=== PATIENT | male | born 1935 ===

== ENCOUNTER 2019-07-24 18:45 | Inpatient (IN) | payer OTHER, MEDICARE, SELFPAY ==
[2019-07-24] VITALS (8 sets, daily range): BP systolic 133–178; BP diastolic 84–118; PULSE 91–105; RESP 16–105; TEMP 36.4–36.6; O2SAT 93–99; BMI 31.4
--- NOTE | 2019-07-24 18:51 | XRR_ITS ---
PROCEDURE INFORMATION: Exam: XR Chest, 1 View Exam date and time: 07/24/2019 7:22 PM Age: 84 years old Clinical indication: Chest pain; Type not specified; Additional info: Chest pain, started today TECHNIQUE: Imaging protocol: XR of the chest Views: 1 view. COMPARISON: No relevant prior studies available. FINDINGS: Lungs: Hyperinflation and interstitial prominence. Asymmetric right basilar airspace disease and pleural effusion obscuring the right hemidiaphragm. Pleural space: Questionable small left pleural effusion. Heart/Mediastinum: Borderline cardiomegaly. Vasculature: Calcification of the thoracic aorta. Bones/joints: Osteopenia and degenerative change. XR/XR chest 1V portable [id number] IMPRESSION: Asymmetric right basilar airspace disease and pleural effusion obscuring the right hemidiaphragm.
--- NOTE | 2019-07-24 18:52 | ECG_ITS ---
Measurements Intervals [place] Rate: 89 P: ID: 0 QRS: 268 QRSD: 161 T: 27 QT: 418 QTc: 510 ATRIAL FIBRILLATION WITH ABERRANT CONDUCTION OR VENTRICULAR PREMATURE COMPLEXES INDETERMINATE AXIS RIGHT BUNDLE BRANCH BLOCK [120+ ms QRS DURATION, UPRIGHT V1, 40+ ms S IN I/a I/aVL/V4/V5/V6] LEFT POSTERIOR FASCICULAR BLOCK [QRS AXIS > 109, INFERIOR Q] No previous ECG available for comparison Electronically Signed On 07-25-2019 18:52:57 CDT by Tai Tello M.D. [email or web address]
[2019-07-24 19:31] LABS: Basophils % 0.3 %; Eosinophils % 0.4 %; Hematocrit 45.9 % (42.0-52.0); Hemoglobin 14.8 g/dL (11.7-16.6); Lymphocytes # 0.8 10^3/uL (0.8-4.8); Lymphocytes % 8.4 %; Mean Corpuscular HGB Conc 32.2 g/dL (30.0-36.0); Mean Corpuscular Volume 96.2 fL (80-94); Mean Platelet Volume 10.5 fL (7.4-10.4); Monocytes # 0.7 10^3/uL (0.2-0.9); Monocytes % 7.5 %; Neutrophils # 8.1 10^3/uL (1.8-7.7); Neutrophils % 83.1 %; Nucleated Red Blood Cells % 0 %; Platelet Count 181 10^3/cmm (130-400); Red Blood Count 4.77 10^6/uL (4.1-5.3); Red Cell Distribution Width 14.6 % (12.1-15.1); White Blood Count 9.7 10^3/uL (4.0-10.0)
[2019-07-24 19:46] LABS: INR 1.05 (0.8-1.2)
[2019-07-24 19:50] LABS: D Dimer 1.73 ug/mIFEU (0-0.59)
[2019-07-24 19:53] LABS: Alanine Aminotransferase 8 U/L (0-41); Albumin Level 4.1 g/dL (3.5-5.2); Alkaline Phosphatase 94 IU/L (40-130); Anion Gap 16.9 (5-19); Aspartate Amino Transferase 14 U/L (0-40); Blood Urea Nitrogen 16 mg/dL (8-23); Calcium 8.9 mg/dL (8.5-10.5); Carbon Dioxide 25 mmol/L (22-29); Chloride 101 mmol/L (98-107); Creatinine Clr Calc Pharmacy 83.6142; Globulin 2.5 g/dL (1.3-4.6); Glucose 129 mg/dL (65-115); Lipase 62 U/L (13-60); Osmolality Calculated 284 mOsm/kg (285-295); Potassium 4.9 mmol/L (3.5-5.1); Sodium 138 mmol/L (136-145); Total Bilirubin 0.6 mg/dL (0.15-1.2); Total Protein 6.6 g/dL (6.6-8.7)
[2019-07-24 19:54] LABS: Troponin(5th) Baseline 13 ng/mL (0-15)
--- NOTE | 2019-07-24 20:21 | CTR_ITS ---
PROCEDURE INFORMATION: Exam: CT Angiography Chest With Contrast Exam date and time: 07/24/2019 8:49 PM Age: 84 years old Clinical indication: Shortness of breath; Left-sided chest pain; Prior surgery; Surgery type: Stents; Additional info: Syncope, SOB TECHNIQUE: Imaging protocol: Computed tomographic angiography of the chest with intravenous contrast. 3D rendering: MIP and/or 3D reconstructed images were created by the technologist. Radiation optimization: All CT scans at this facility use at least one of these dose optimization techniques: automated exposure control; mA and/or kV adjustment per patient size (includes targeted exams where dose is matched to clinical indication); or iterative reconstruction. Contrast material: OMNI 350; Contrast volume: 95 ml; Contrast route: IV; COMPARISON: CR XR chest 1V portable [id number] 07/24/2019 7:12 PM RADIATION DOSE METRICS: Total DLP: 619.48 mGy-cm FINDINGS: Pulmonary arteries: There is dilatation of the root of the pulmonary artery which measures approximately 4.5 cm in diameter suggesting pulmonary hypertension. There is very poor opacification of arterial branches in the right lower lobe. Findings are worrisome for pulmonary embolism involving the right lower lobe. There is also suggestion of filling defects in some right middle lobe branches. These are not optimally visualized due to streak artifact but are considered to be suspicious also for PE in the right middle lobe. Aorta: Unremarkable. No aortic aneurysm. No aortic dissection. Lungs: There is compressive atelectasis of portions of the right lower lobe. There is mild ground-glass haziness of both lungs in some thickening of the interlobular septa suggesting congestive failure and interstitial edema. There is some calcific density in the atelectatic portion of the right lower lobe, possibly some pleural calcification. Pleural space: There is moderate right pleural effusion. Heart: There is cardiomegaly with left atrial and left ventricular enlargement. There is moderate atherosclerotic calcification of the coronary arteries. Lymph nodes: Unremarkable. No enlarged lymph nodes. Bones/joints: Unremarkable. No acute fracture. Soft tissues: Unremarkable. CT/CT angio chest PE protcl [id number] IMPRESSION: 1. Findings are suspicious for pulmonary embolism in the right lower lobe and right middle lobe. 2. Moderate right pleural effusion. 3. Right lower lobe atelectasis 4. Cardiomegaly and congestive failure. 5. Coronary artery disease. 6. Pulmonary hypertension. Radiation Dose CTDIVOL = (mGy): DLP = 619.48 (mGy-cm)
--- NOTE | 2019-07-24 20:23 | W.ED.CHESTPA ---
HPI - Chest Pain General: Chief Complaint: Chest Pain Stated Complaint: N/V/D, L SIDE CHEST PAIN Time Seen by Provider: 07/24/19 18:49 History of Present Illness: HPI narrative: Patient is an 84-year-old gentleman presenting today with chest pain. He reports that he has had nausea vomiting and diarrhea all day today. He had some loose stool yesterday but the symptoms really started today. He was feeling very weak and had a near syncopal episode after getting up off the toilet. It was at that time that he developed severe chest pain. He hit his [employer] alert button and 911 came. His pain had relieved pretty significantly by the time they got there. He does have a history of coronary artery disease as well as CHF. He has been noticing increasing swelling in both legs. He also has a history of atrial fibrillation and is on rivaroxaban. He has been started on Lasix fairly recently. He was initially started on 80 but is now taking 40. He is only taking in the morning although he supposed to take it twice a day. He says it makes him urinate all night if he takes it at night. He has not had any fevers or cough. His great-grandchildren were around yesterday. He has not had any contact with anyone ill that he is aware of. MD complaint: chest pain Pertinent past history: coronary artery disease and prior MS Onset: other (After getting up off the toilet) Pain location: substernal Pain radiation: left arm Severity: severe Quality: sharp and similar to prior MS Relieving factors: rest Context: recent illness (Vomiting and diarrhea) Associated symptoms: Reports dyspnea, nausea, syncope (Near syncope) and vomiting; Deny abdominal pain or fever(s) Review of Systems General: Reports: 10 or more systems reviewed and unremarkable except in HPI and below Const: Denies: fever(s), chills, fatigue or malaise Eyes: Denies: change in vision ENMT: Denies: odynophagia Card: Reports: chest pain, swelling of feet/ankles and syncope (Near syncope) Resp: Reports: dyspnea GI: Reports: nausea, vomiting and diarrhea; Denies: abdominal pain : Denies: flank pain Musc: Reports: back pain; Denies: neck pain Skin/Breast: Denies: rash Neuro: Reports: weakness in extremities; Denies: headache(s) or numbness in extremities Wyatt/Lymph: Denies: easy bruising or easy bleeding FORMERLY [facility], 1928–1983 ED PFSH: Medical History (Updated 07/24/19 @ 22:40 by Tai Will MD) Atherosclerosis of [place] arteries of extremity with intermittent claudication Nonobstructive coronary artery disease Atrial fibrillation BPH (benign prostatic hyperplasia) CHF (congestive heart failure) CVA (cerebral vascular accident) 2019 Diabetes mellitus Osteoarthritis Right bundle branch block Surgical History (Updated 07/24/19 @ 22:36 by Tai Will MD) S/P eye surgery S/P knee surgery S/P tonsillectomy and adenoidectomy Family History Mother CHF (congestive heart failure) Pneumonia Father CHF (congestive heart failure) Stroke Other Diabetes Hypertension Social History Smoking and tobacco status: former smoker History of recent travel: No Physical Exam Const: COMMON NORMALS: no acute distress, patient oriented x3, no limitations and alert GENERAL APPEARANCE: cooperative and comfortable HENMT: HEAD & SCALP: normal to inspection FACE & SINUS: normal facial exam Eye: GENERAL EYE: appearance normal, both eyes and all related structures Neck/C-Spine: COMMON NORMALS: supple, no meningeal signs and no JVD Chest: COMMONS NORMALS: normal inspection of the chest Resp: COMMON NORMALS: normal respiratory effort and No use of accessory muscles AUSCULTATION: diminished lung sounds (Bilateral bases) Cardio: COMMON NORMALS: no JVD, regular rate, regular rhythm and No murmurs present (Cardio) RATE: regular rate RHYTHM: regular rhythm GI: COMMON NORMALS: Normal to inspection, nondistended, normoactive bowel sounds present, Soft to palpation (Patient states that he feels bloated) and non-tender INSPECTION: Yes normal to inspection AUSCULTATION: Yes normoactive bowel sounds PALPATION: Yes Soft to palpation (Patient states that he feels bloated) Back/Pelvis: COMMON NORMALS: thoracic and lumbar spine normal to inspection Extremity: GENERAL: Yes edema (Bilateral significant edema, pitting) Neuro: COMMON NORMALS: patient oriented x3, moves all extremities, no focal motor deficits and no sensory deficits noted SENSORIUM/ORIENTATION: Yes alert MENINGEAL SIGNS: Yes no meningeal signs Psych: COMMON NORMALS: mental status grossly normal, cooperative and normal affect Skin: COMMON NORMALS: no rashes or lesions noted and turgor normal GENERAL SKIN EXAM: no rashes or lesions noted and turgor normal Course ED course: Patient presented after a day of vomiting and diarrhea. He had a near syncopal episode at home associated with chest pain. In the ED he was somewhat dyspneic at rest but oxygen was okay as long as he was on oxygen. When he stood up to use the urinal even with the oxygen he became extremely dyspneic and hypoxic. Chest x-ray shows a right pleural effusion. CT was done and confirmed the pleural effusion and also suggested probable PEs in the right lower and right middle lobes. He will be admitted. He is already on rivaroxaban and I am giving him some Lovenox as well. He also has some element of failure and will give him some extra Lasix. Vital Signs: Vital signs: Vital Signs Temperature 97.5 F L 07/24/19 18:49 Pulse Rate 101 H 07/24/19 22:00 Respiratory Rate 19 H 07/24/19 22:00 Blood Pressure 133/84 07/24/19 22:00 Pulse Oximetry 95 07/24/19 22:00 MDM - Chest Pain Lab Data: Labs: Lab Results 07/24/19 07/24/19 07/24/19 Range/Units 19:23 19:23 19:23 WBC 9.7 (4.0-10.0) 10^3/ uL RBC 4.77 (4.1-5.3) 10^6/u L Hgb 14.8 (11.7-16.6) g/dL Hct 45.9 (42.0-52.0) % MCV 96.2 H (80-94) fL MCH 31.0 (28.0-34.0) pg MCHC 32.2 (30.0-36.0) g/dL RDW 14.6 (12.1-15.1) % Plt Count 181 (130-400) 10^3/c mm MPV 10.5 H (7.4-10.4) fL Neut % (Auto) 83.1 % Lymph % (Auto) 8.4 % Nicholas % (Auto) 7.5 % Eos % (Auto) 0.4 % Baso % (Auto) 0.3 % Neut # (Auto) 8.1 H (1.8-7.7) 10^3/u L Lymph # (Auto) 0.8 (0.8-4.8) 10^3/u L Nicholas # (Auto) 0.7 (0.2-0.9) 10^3/u L Eos # (Auto) 0.0 (0.0-0.8) 10^3/u L Baso # (Auto) 0.0 (0.0-0.1) 10^3/u L Nucleated RBC % (a uto) 0 % Nucleated RBCs # 0.0 /100WBC PT 14.00 H (10.5-13.3) SECO NDS INR 1.05 (0.8-1.2) D-Dimer 1.73 H (0-0.59) ug/mIFE U Sodium 138 (136-145) mmol/L Potassium 4.9 (3.5-5.1) mmol/L Chloride 101 (98-107) mmol/L Carbon Dioxide 25 (22-29) mmol/L Anion Gap 16.9 (5-19) BUN 16 (8-23) mg/dL Creatinine 0.8 (0.7-1.2) mg/dL Glucose 129 H (65-115) mg/dL Calculated Osmolal ity 284 L (285-295) mOsm/k g Calcium 8.9 (8.5-10.5) mg/dL Total Bilirubin 0.6 (0.15-1.2) mg/dL AST 14 (0-40) U/L ALT 8 (0-41) U/L Alkaline Phosphata se 94 (40-130) IU/L Troponin T Baselin e (0-15) ng/mL Troponin T 120 Min [place] (0-15) ng/mL Delta Troponin T (0-10) ABS# Total Protein 6.6 (6.6-8.7) g/dL Albumin 4.1 (3.5-5.2) g/dL Globulin 2.5 (1.3-4.6) g/dL Lipase 62 H (13-60) U/L Urine Color (Yellow) Urine Appearance (CLEAR) Urine pH (5-7) Ur Specific Gravit y (1.005-1.030) Urine Protein (Negative) Urine Glucose (UA) (Normal) Urine Ketones (Negative) Urine Blood (Negative) Urine Nitrate (Negative) Urine Bilirubin (NEGATIVE) Prot Sulfosalicyli c Acd (Negative) Urine Urobilinogen (Negative) mg/dL Ur Leukocyte Geetha ase (Negative) 07/24/19 07/24/19 07/24/19 Range/Units 19:23 20:35 21:05 WBC (4.0-10.0) 10^3/ uL RBC (4.1-5.3) 10^6/u L Hgb (11.7-16.6) g/dL Hct (42.0-52.0) % MCV (80-94) fL MCH (28.0-34.0) pg MCHC (30.0-36.0) g/dL RDW (12.1-15.1) % Plt Count (130-400) 10^3/c mm MPV (7.4-10.4) fL Neut % (Auto) % Lymph % (Auto) % Nicholas % (Auto) % Eos % (Auto) % Baso % (Auto) % Neut # (Auto) (1.8-7.7) 10^3/u L Lymph # (Auto) (0.8-4.8) 10^3/u L Nicholas # (Auto) (0.2-0.9) 10^3/u L Eos # (Auto) (0.0-0.8) 10^3/u L Baso # (Auto) (0.0-0.1) 10^3/u L Nucleated RBC % (a uto) % Nucleated RBCs # /100WBC PT (10.5-13.3) SECO NDS INR (0.8-1.2) D-Dimer (0-0.59) ug/mIFE U Sodium (136-145) mmol/L Potassium (3.5-5.1) mmol/L Chloride (98-107) mmol/L Carbon Dioxide (22-29) mmol/L Anion Gap (5-19) BUN (8-23) mg/dL Creatinine (0.7-1.2) mg/dL Glucose (65-115) mg/dL Calculated Osmolal ity (285-295) mOsm/k g Calcium (8.5-10.5) mg/dL Total Bilirubin (0.15-1.2) mg/dL AST (0-40) U/L ALT (0-41) U/L Alkaline Phosphata se (40-130) IU/L Troponin T Baselin e 13 (0-15) ng/mL Troponin T 120 Min [place] 13.21 (0-15) ng/mL Delta Troponin T 0.21 (0-10) ABS# Total Protein (6.6-8.7) g/dL Albumin (3.5-5.2) g/dL Globulin (1.3-4.6) g/dL Lipase (13-60) U/L Urine Color Yellow (Yellow) Urine Appearance Clear (CLEAR) Urine pH 8 H (5-7) Ur Specific Gravit y 1.005 (1.005-1.030) Urine Protein Neg (Negative) Urine Glucose (UA) Norm (Normal) Urine Ketones 1+ H (Negative) Urine Blood Neg (Negative) Urine Nitrate Negative (Negative) Urine Bilirubin Neg (NEGATIVE) Prot Sulfosalicyli c Acd Negative (Negative) Urine Urobilinogen Norm (Negative) mg/dL Ur Leukocyte Geetha ase Negative (Negative) EKG Data^: EKG 1: EKG interpretation date: 07/24/19 EKG interpretation time: 19:10 Interpretation: EKG shows a rate of 89 with atrial fibrillation. He has wide a variant conduction. Right bundle branch block. QRS duration is 161. No acute ST changes. Discharge Plan Discharge Admit Provider: Tai Will Coding Level of Care Code ED Ux Developer for [facility] Fwd Exam Comprehensive
[2019-07-24 20:48] LABS: Add Urine Microscopic? NO
--- NOTE | 2019-07-24 20:52 | ECG_ITS ---
Measurements Intervals [place] Rate: 97 P: FL: 0 QRS: 263 QRSD: 166 T: 28 QT: 413 QTc: 525 ATRIAL FIBRILLATION INDETERMINATE AXIS RIGHT BUNDLE BRANCH BLOCK [120+ ms QRS DURATION, UPRIGHT V1, 40+ ms S IN I/aVL/V4/V5/V6] No previous ECG available for comparison Electronically Signed On 07-25-2019 19:01:08 CDT by Tai Tello M.D. [id number]
[2019-07-24 21:07] LABS: Urine Appearance Clear (CLEAR); Urine Color Yellow (Yellow)
[2019-07-24] MEDS: iohexol 350 mg/mL 100 mL Btl IV (21:07)
[2019-07-24 21:08] LABS: Bilirubin Urine Neg (NEGATIVE); Blood Urine Neg (Negative); Glucose Urine UA Norm (Normal); Ketones Urine 1+ (Negative); Leukocyte Esterase Urine Negative (Negative); Nitrate Urine Negative (Negative); Protein Urine Neg (Negative); Specific Gravity, Urine 1.005 (1.005-1.030); Sulfosalicylic Acid Urine Negative (Negative); Urobilinogen Urine Norm (Negative); pH Urine 8 (5-7)
[2019-07-24 21:42] LABS: Troponin 5 2HR 13.21 ng/mL (0-15); Troponin 5 2HR Delta 0.21 ABS# (0-10)
--- NOTE | 2019-07-24 22:31 | P.HP_ITS ---
Providers/Chief Complaint Primary Care Provider: WILFREDO Brandt Chief Complaint: N/V/D, L SIDE CHEST PAIN History of Present Illness Rober Smiley is a 84 year old male who has a known history of atrial fibrillation, chronic anticoagulation with rivaroxaban, congestive heart failure of unknown type, CVA coming in today after experiencing sharp chest pain. Patient is stating that around 6 PM he started experiencing left-sided chest pain which was radiating towards his arm and left shoulder, he felt nauseous with some dry heaves, chest pain lasted for about few minutes, for last couple of weeks he has been having orthopnea, PND, he has gained few pounds, his legs are swollen, he takes Lasix 40 mg a day. He is moderately active for his age, is still working 30 hours a day, he is an tax staff accountant by profession. Today he also experienced couple of episodes of diarrhea which is unusual for him, he has not used any antibiotics recently, no sick contacts, he is denying any fever. Diagnostics in the ER revealed pulmonary embolism, tachypnea, tachycardia, hypoxia requiring 2 L of oxygen, CTA revealed PE He was given first dose of Lovenox in the ER 100 mg Review of Systems Const: Reports: body aches and fatigue; Denies: fever(s) or chills Eyes: Denies: change in vision ENMT: Denies: throat pain Card: Reports: chest pain, edema, swelling of feet/ankles, pre-syncope, dyspnea on exertion and orthopnea; Denies: palpitations, irregular heart rhythm, lightheadedness or syncope Resp: Reports: dyspnea GI: Reports: nausea and diarrhea; Denies: abdominal pain, vomiting or constipation : Denies: flank pain Musc: Denies: neck pain Skin/Breast: Denies: rash Neuro: Denies: headache(s) or weakness in extremities Psych: Denies: anxiety Endo: Denies: polyuria Wyatt/Lymph: Denies: easy bruising All/Imm: Denies: urticaria Medications/Allergies Home Medications Medication Instructions Recorded Confirmed Last Taken Type aspirin 81 mg tablet,delayed 81 mg PO DAILY 05/05/19 05/05/19 Unknown History release atorvastatin 80 mg tablet 40 mg PO DAILY tab 05/05/19 05/05/19 Unknown History docusate sodium 100 mg capsule 100 mg PO BID PRN 05/05/19 05/05/19 Unknown History multivitamin 1 tab PO DAILY 05/05/19 05/05/19 Unknown History potassium chloride 20 mEq/15 mL 20 meq PO DAILY 05/05/19 05/05/19 Unknown History oral liquid trazodone 100 mg tablet 100 mg PO DAILY 05/05/19 05/05/19 Unknown History furosemide 80 mg tablet 80 mg PO .1 tab AM, 1/2 tab PM tab 05/23/19 Unknown History Allergies Allergy/AdvReac Type Severity Reaction Status Date / Time digoxin Allergy Unknown ALGY-Rash Verified 07/24/19 23:22 PFSH Acute PFSH: Medical History Atherosclerosis of [place] arteries of extremity with intermittent claudication Nonobstructive coronary artery disease Atrial fibrillation BPH (benign prostatic hyperplasia) CHF (congestive heart failure) CVA (cerebral vascular accident) 2019 Diabetes mellitus Osteoarthritis Right bundle branch block Surgical History S/P eye surgery S/P knee surgery S/P tonsillectomy and adenoidectomy Family History Mother CHF (congestive heart failure) Pneumonia Father CHF (congestive heart failure) Stroke Other Diabetes Hypertension Social History (Updated 07/24/19 @ 23:23 by Tai Will MD) Smoking and tobacco status: former smoker Alcohol intake: never Substance/Drug Use: never Lives independently: Yes Current occupation: Works 30 hours a day as an tax staff accountant, [employer] History of recent travel: No Vitals/I&O/Wt Last Vital Signs Temp 97.5 F L 07/24/19 18:49 Pulse 101 H 07/24/19 22:00 Resp 19 H 07/24/19 22:00 BP 133/84 07/24/19 22:00 Pulse Ox 95 07/24/19 22:00 Weight last 48 hrs Weight 102.058 kg Physical Exam Narrative: EXAM NARRATIVE: Head to toe examination Very pleasant elderly male Morbidly obese No active chest pain Variable S1-S2, active signs of heart failure, 2+ pitting edema bilateral lower extremities Abdomen distended, bloated, nontender, no signs of peritonitis, bowel sounds sluggish Lungs are clear to auscultation Neurologically nonfocal exam Awake alert oriented x3, GCS 15 Skin does not show any sign ischemia gangrene ulcer Appropriate mood and affect Pertinent negatives: No respiratory distress Data : 07/24/19 19:23 07/24/19 19:23 A&P Assessment and plan (1) Acute pulmonary embolism: Status: Acute (2) CHF exacerbation: Status: Acute (3) Chest pain: Status: Acute (4) Atrial fibrillation: Status: Acute (5) Morbid obesity: Status: Acute Additional A&P Information Symptomatic new onset PE with chest pain and shortness of Failed rivaroxaban EKG shows right bundle branch block which is chronic Troponin not significantly high, I have ordered echo, BNP, no active right heart strain on EKG Hemodynamically stable I would use Lovenox for now, 100 mg twice a day Venous Dopplers in the am He lives alone, never had any falls in the past CHF exacerbation of unknown type We will get echo in the morning He takes Lasix 40 mg I would go ahead and use 80 mg for now Atrial fibrillation with RVR Heart rate 10 5-1 10 At home he was not on AV peña blocking agent, his rate was controlled because of right bundle branch block in the past I would use very low-dose beta-genia for now, would avoid calcium genia as I am not aware of his EF Failed anticoagulation BMI less than 40, he might benefit from Eliquis instead of rivaroxaban Full code No need of DVT prophylaxis because of Lovenox use Cardiac diet Attestations Medical Necessity Statement*: Anticipating discharge in less than 48 hours currently needs anticoagulation with Lovenox for new onset PE which is symptomatic, needs echo in the morning Time Spent in Patient Care: 50 Coding Level of Care Code Acute [place] Planter for [facility] Fwd Diagnoses Acute pulmonary embolism I26.99 CHF exacerbation I50.9 Chest pain R07.9 Atrial fibrillation I48.91 Morbid obesity E66.01
[2019-07-24] MEDS: enoxaparin 100 mg/mL Syringe SUBCUT (22:49)
[2019-07-24 23:35] LABS: NT Pro B Type Natriuretic Pept 1285 pg/mL (0-450)
--- NOTE | 2019-07-24 23:47 | PC.NURSE ---
Dr. Will notified of patient's heart rate jumping up to 160 when patient gets up to stand at side of bed.
--- NOTE | 2019-07-24 23:50 | PC.NURSE ---
Patient's med rec is complete per what patient states he takes, except for a medication that he states he takes for restless legs that he cannot remember the name of.
[2019-07-24] MEDS: metoprolol tartrate 25 mg Tablet PO (23:52)
[2019-07-25] VITALS (7 sets, daily range): BP systolic 143–166; BP diastolic 70–90; PULSE 47–89; RESP 18–38; TEMP 36.6–36.8; O2SAT 92–98
--- NOTE | 2019-07-25 00:14 | PC.NURSE ---
Patient arrived to the floor from ED around 2330 after report was received via phone. Patient is alert and oriented and is ambulatory, but weak when ambulating. Dr. Will came to see patient. Patient has been oriented to his room and has call light within reach.
--- NOTE | 2019-07-25 00:52 | ECG_ITS ---
Measurements Intervals [place] Rate: 79 P: ID: 0 QRS: 254 QRSD: 161 T: 43 QT: 449 QTc: 517 ATRIAL FIBRILLATION WITH ABERRANT CONDUCTION OR VENTRICULAR PREMATURE COMPLEXES INDETERMINATE AXIS RIGHT BUNDLE BRANCH BLOCK [120+ ms QRS DURATION, UPRIGHT V1, 40+ ms S IN I/aVL/V4/V5/V6] No previous ECG available for comparison Electronically Signed On 07-25-2019 19:01:15 CDT by Tai Tello M.D. [email or web address]
[2019-07-25 01:09] LABS: Troponin 5 6HR 13.31 ng/mL (0-15); Troponin 5 6HR Delta 0.31 ng/L (0-12)
--- NOTE | 2019-07-25 02:11 | PC.NURSE ---
Patient vomited. Got order from Dr. Colbert for [place] [facility] REAL.
[2019-07-25] MEDS: ondansetron 4 MG Tablet PO (02:13)
--- NOTE | 2019-07-25 05:06 | PC.NURSE ---
Dr. Suman thao of patient asking for something to help with diarrhea.
[2019-07-25 05:45] LABS: Basophils % 0.2 %; Eosinophils % 0.1 %; Hematocrit 45.7 % (42.0-52.0); Hemoglobin 15.8 g/dL (11.7-16.6); Lymphocytes # 0.9 10^3/uL (0.8-4.8); Mean Corpuscular HGB Conc 34.6 g/dL (30.0-36.0); Mean Corpuscular Hemoglobin 33.5 pg (28.0-34.0); Mean Platelet Volume 11.1 fL (7.4-10.4); Monocytes # 0.9 10^3/uL (0.2-0.9); Neutrophils # 11.3 10^3/uL (1.8-7.7); Neutrophils % 85.3 %; Nucleated Red Blood Cells % 0 %; Platelet Count 180 10^3/cmm (130-400); Red Blood Count 4.71 10^6/uL (4.1-5.3); Red Cell Distribution Width 14.7 % (12.1-15.1); White Blood Count 13.2 10^3/uL (4.0-10.0)
[2019-07-25 06:07] LABS: Anion Gap 15.3 (5-19); Blood Urea Nitrogen 18 mg/dL (8-23); Calcium 9.6 mg/dL (8.5-10.5); Carbon Dioxide 26 mmol/L (22-29); Chloride 100 mmol/L (98-107); Glucose 135 mg/dL (65-115); Osmolality Calculated 283 mOsm/kg (285-295); Potassium 4.3 mmol/L (3.5-5.1); Sodium 137 mmol/L (136-145)
--- NOTE | 2019-07-25 07:00 | USCV_ITS ---
Rober Smiley Age: 84 Gender: M : 1935 Exam Date: 07/25/2019 08:32 Ordering Phys: Tai Will MD Technologist: Mindi Rodriguez [place] [facility] [place] HISTORY: Pulmonary embolism. PROCEDURES: Venous duplex imaging was performed in bilateral lower extremities. The following venous structures were evaluated: common femoral vein, profunda vein, proximal portion of the greater saphenous vein, superficial femoral vein, and the popliteal vein. In addition, the posterior tibial and peroneal trunk were evaluated. Serial compression, augmentation maneuvers, and spectral Doppler flow evaluation were performed. FINDINGS: Normal 2-D Doppler and augmentation and compressibility throughout the lower extremity venous structures. Additional imaging through the proximal calf veins also reveals no thrombus. Limited evaluation of the greater saphenous vein is patent with no thrombus. There is bilateral subcutaneous lower extremity edema noted. CONCLUSIONS No DVT bilateral lower extremities. Dr. Amparo Wray DO (Electronically Signed) Final Date: 25 Jul 2019 12:45 S
--- NOTE | 2019-07-25 07:00 | USCV_ITS ---
Rober Smiley Age: 84 Gender: M : 1935 Exam Date: 07/25/2019 08:16 Ordering Phys: Tai Will MD Technologist: Mindi Rodriguez [place] [facility] [place] PE BP: 166 / 89 HR: 74 Rhythm: Sinus Technical Quality: Suboptimal MEASUREMENTS (Male / Female) Normal Values 2D ECHO LV Diastolic Diameter PLAX 5.9 cm 4.2 - 5.9 / 3.9 - 5.3 cm LV Systolic Diameter PLAX 5.6 cm LV Chamber Size 4.3 cm IVS Diastolic Thickness 1.2 cm 0.6 - 1.0 / 0.6 - 0.9 cm IVS Systolic Thickness 1.3 cm LVPW Diastolic Thickness 1.8 cm 0.6 - 1.0 / 0.6 - 0.9 cm LVPW Systolic Thickness 1.7 cm RV Chamber Size 3.6 cm LVOT Diameter 2.1 cm LV Ejection Fraction 2D Teich 11.2 % LV Ejection Fraction MOD 2C 24.0 % LV Ejection Fraction 2C AL 22.0 % LA Diameter 4.6 cm LA Width 3.2 cm LA Height 3.4 cm RA Width 2.8 cm RA Height 4.1 cm Aorta at Sinotubular Diameter 2.8 cm M-MODE LV Diastolic Diameter MM 6.5 cm 4.2 - 5.9 / 3.9 - 5.3 cm LV Systolic Diameter MM 5.2 cm LV Ejection Fraction MM Teich 40.8 % IVS Diastolic Thickness MM 1.1 cm 0.6 - 1.0 / 0.6 - 0.9 cm IVS Systolic Thickness MM 1.3 cm LVPW Diastolic Thickness MM 0.9 cm 0.6 - 1.0 / 0.6 - 0.9 cm LVPW Systolic Thickness MM 0.9 cm Aortic Annulus Diameter 3.1 cm LA Ao Ratio MM 1.5 MV E Point Septal Separation 1.8 cm DOPPLER AV Peak Velocity 157.0 cm/s LVOT Peak Velocity 76.0 cm/s AV Area Cont Eq vti 2.1 cm squared AV Area Cont Eq pk 1.6 cm squared MV Area PHT 3.9 cm squared Mitral E to A Ratio 5.7 MV E' Velocity 10.0 cm/s Mitral E to MV E' Ratio 12.6 Mitral E to LV E' Lateral Ratio 11.6 Mitral E to LV E' Septal Ratio 13.7 TR Peak Velocity 335.6 cm/s TR Peak Gradient 45.1 mmHg TR Mean Velocity 225.3 cm/s TR Mean Gradient 24.3 mmHg TR Velocity Time Integral 109.8 cm TV Peak E Velocity 55.0 cm/s Right Atrial Pressure 3.0 mmHg Pulmonary Artery Systolic Pressu 48.1 mmHg PV Peak Velocity 71.0 cm/s QpQs Shunt Ratio 1.1 RV Acceleration Time 0.1 s RV Ejection Time 0.3 s RV AcT/ET 0.3 FINDINGS Left Ventricle The rhythm is sinus with frequent PVCs. The ventricle is mildly to moderately enlarged. There is severe global hypokinesis. A rough estimate of the ejection fraction is about 25 to 30%. Grade 3 diastolic dysfunction. Right Ventricle Mild right ventricular free wall enlargement. Mild right ventricular free wall hypokinesis.mild pulmonary hypertension, RVSP 48.1 mmHg. Right Atrium Moderately increased right atrial size. Left Atrium Mildly increased left atrial size. Mitral Valve Structurally normal mitral valve. Mild mitral valve regurgitation. Aortic Valve Structurally normal trileaflet aortic valve. No aortic valve stenosis. Mild aortic valve regurgitation. Tricuspid Valve Structurally normal tricuspid valve. Mild tricuspid valve regurgitation. Pulmonic Valve Pulmonic valve not well visualized. Pericardium Normal pericardium without effusion. Aorta Normal ascending aorta dimension. CONCLUSIONS The rhythm is sinus with frequent PVCs. The ventricle is mildly to moderately enlarged. There is severe global hypokinesis. A rough estimate of the ejection fraction is about 25 to 30%. Grade 3 diastolic dysfunction. Mild right ventricular free wall enlargement. Mild right ventricular free wall hypokinesis.mild pulmonary hypertension, RVSP 48.1 mmHg. Moderately increased right atrial size. Mildly increased left atrial size. Structurally normal mitral valve. Mild mitral valve regurgitation. Structurally normal trileaflet aortic valve. No aortic valve stenosis. Mild aortic valve regurgitation. There are no prior echocardiogram studies to compare. Dr. Kings Piper MD (Electronically Signed) Final Date: 25 Jul 2019 09:00 S
[2019-07-25] MEDS: FUROsemide 40 mg Tablet 80 MG PO (09:27)
[2019-07-25] MEDS: aspirin 81 mg EC Tablet PO (09:27)
[2019-07-25] MEDS: metoprolol tartrate 25 mg Tablet PO (09:27)
[2019-07-25] MEDS: atorvastatin 40 mg Tablet PO (09:27)
--- NOTE | 2019-07-25 10:15 | PC.CHAP ---
Pastoral Care Encounter/Spiritual Assessment Type of Contact [] Declined research and development tester visit [] Patient/Family/Request visit [] Outpatient visit [] Follow-up visit [] Physician referral [] Code/Alert [x] Routine visit [] Staff referral [] Actively dying [] Patient sleeping [] Family support [] [] Out of room [] Palliative care [] [] Receiving care in room [] Pre-surgical visit [] Trauma [] Long length of stay [] ICU visit [] Other: Relational/Emotional Strength [] Patient feels connected with others/family/visitors/staff [] Distress [] Loneliness/isolation [] Abandonment Spirituality of Patient [] Person of Dai [] Attends Sikh of their Dai [] Believes in Prayer [] Reads Bible or Episcopal materials [] There are Spiritual issues to be addressed Manager Solution Interventions [x] Prayer [] Active listening [] Non-anxious presence [] Spiritual/emotional support [] Crisis/trauma care [] Spiritual counseling [] Bereavement support [] Provided bereavement packet [] Provided Bible/devotional materials [] Provided toy/stuffed animal, coloring book to patient or family member [] Provided Communion [] Anointing/[place] [] Salvation [x] Completed spiritual assessment [] Other: Impact on Illness or Injury [] Angry [] Fearful [] Anxious [] Often cries [] Exhaustion [] Unable to work [] Unable to attend tenriism [] Unable to walk/stand [] Unable to read [] Unable to drive [] Unable to eat/drink [] Unable to sleep [] Unable to be with family [] Patient intubated [] Other: Summary resting Time spent with patient
[2019-07-25 10:55] LABS: Estmated Average Glucose 137; Hemoglobin A1C 6.4 % (4.0-6.0)
[2019-07-25 11:07] LABS: Thyroid Stimulating Hormone 2.31 uIU/mL (0.27-4.20)
[2019-07-25] MEDS: enoxaparin 100 mg/mL Syringe SUBCUT ×2 (11:28→21:20)
--- NOTE | 2019-07-25 11:29 | PC.NURSE ---
Patient states he cannot swallow potassium pills, and can only take take liquid potassium.
[2019-07-25] MEDS: acetaminophen 325 mg Tablet PO (11:45)
--- NOTE | 2019-07-25 11:46 | P.PN_ITS ---
Subjective Subjective: Interval history: This morning patient was examined, is sitting in bed, denies chest pain, palpitations, lightheadedness, no dizziness Patient states that back in October 2018, he presented to [facility] due to severe left-sided chest pain, there were plans on flying him to [facility], while at [facility] he suffered left-sided weakness, also had a right MCA stroke, was then emergently flown for an NM and a stroke to [facility]. Patient states at [facility] he was diagnosed with a mild NM, did not have a stress test, did not have angiography, medically managed. He had left-sided weakness, for which she was diagnosed from with a stroke secondary to atrial fibrillation, put on rivaroxaban, aspirin received physical therapy. Currently at home, living by himself. Patient states that he had a stress test in at the [facility] in [place] a few months ago, is not sure of the results. He remembers that he did have a coronary angiogram done many years ago showed 30% blockage somewhere. Patient states that last night he thought he had a heart attack, as he developed severe left-sided chest pain rating to his left arm, associate with shortness of breath lasting 30 minutes, no nausea, no vomiting, no lightheaded, dizziness. Denies calf pain, calf swelling, immobility, recent surgery, recent travel, work-up here in the ER did show a right middle and lower lobe pulmonary embolism. Patient echocardiogram does show a reduced ejection fraction down to 25 to 30%, which seems to be new, does report orthopnea, paroxysmal nocturnal dy spnea, shortness of breath less than 10 feet recently, and chest pain with exertion. Vitals/I&O/Wt Last Vital Signs Temp 98.2 F 07/25/19 05:20 Pulse 73 07/25/19 05:20 Resp 38 H 07/25/19 05:20 BP 166/89 07/25/19 05:20 Pulse Ox 98 07/25/19 05:20 07/24/19 07/25/19 07/25/19 22:59 06:59 14:59 Intake Total 300 / 300 360 / 360 Output Total 100 / 100 Balance 200 / 200 360 / 360 Weight last 48 hrs Weight 116.936 kg Weight 102.058 kg Physical Exam Const: COMMON NORMALS: no acute distress and patient oriented x3 HENMT: COMMON NORMALS: normocephalic HEAD & SCALP: normocephalic Neck/C-Spine: COMMON NORMALS: no JVD Resp: COMMON NORMALS: normal respiratory effort, No retractions, No use of accessory muscles and clear to auscultation bilaterally AUSCULTATION: clear to auscultation bilaterally Cardio: COMMON NORMALS: no JVD, regular rate, regular rhythm, S1 normal heart sound present and S2 normal heart sound present RATE: regular rate RHYTHM: regular rhythm HEART SOUNDS: S1 normal heart sound present and S2 normal heart sound present GI: COMMON NORMALS: Normal to inspection, nondistended, normoactive bowel so unds present, Soft to palpation, non-tender, No hepatosplenomegaly present, no masses and no bruits PALPATION: Yes Soft to palpation and Yes No hepatosplenomegaly present Extremity: COMMON NORMALS: capillary refill normal, no clubbing, cyanosis or edema and no calf tenderness NARRATIVE EXTREMITY EXAM: 1+ edema Neuro: COMMON NORMALS: patient oriented x3 Psych: COMMON NORMALS: mental status grossly normal Data : 07/25/19 04:55 07/25/19 04:55 A&P Assessment and plan (1) Acute and chronic respiratory failure with hypoxia: -Multifactorial secondary to right middle and right lower lobe pulmonary embolism, and systolic heart failure, cardiomyopathy, pulmonary edema, left pleural effusion -Has complaints of left-sided chest pain, shortness of breath, orthopnea, paroxysmal nocturnal dyspnea, shortness of breath with exertion, by lower extremity edema -Patient has failed anticoagulation on rivaroxaban that he takes for atrial fibrillation, as his PE has occurred on this medication, I spoke to Dr. Soto who advised to switch to a anticoagulation with a different mechanism of action, such as Pradaxa or Coumadin, but needs anticoagulation for Lovenox for now -CT angiogram shows pulmonary embolism in the right lower lobe and right middle lobe, mild right ventricular free wall enlargement, mild right ventricular free wall hypokinesis t -Patient's EKG shows right bundle branch block, atrial fibrillation, no acute ST-T wave changes, echocardiogram shows severe global hypokinesis, ejection fraction 25 to 30%, grade 3 diastolic dysfunction, mild right ventricular free wall hypokinesis, mild pulmonary hypertension -Also has moderate right pleural effusion, pulmonary edema, cardiomegaly seen on imaging -6-hour troponin 13.3, delta 0.31, BNP 1285 Currently requiring 2 L of oxygen Plan; -Admit to CSU -Oxygen therapy protocol -Aspirin, statin, beta-genia -Continue therapeutic Lovenox, switch to Pradaxa on discharge -Monitor for chest pain, monitor telemetry, monitor EKGs -Await records from [facility] and [facility] -We will consider doing a cardiac stress test on Sunday, depending on test results from [facility], might consider a cardiac catheterization given decreased ejection fraction -Lasix 40 mg IV twice daily, potassium replacement 40 mg daily -Daily weights, fluid restrictions less than 15 or cc, physical therapy Status: Acute (2) Chest pain: Status: Acute (3) Atherosclerosis of [place] arteries of extremity with intermittent claudication: Status: Acute (4) CHF (congestive heart failure): Status: Acute (5) Atrial fibrillation: Status: Acute (6) Acute pulmonary embolism: Status: Acute (7) CVA (cerebral vascular accident): -Right-sided CVA, with residual left-sided weakness -Has had multiple CVAs in the past -Was on aspirin, rivaroxaban Status: Acute Additional A&P Information Full code Lovenox for DVT prophylaxis Attestations Medical Necessity Statement*: Patient requires hospitalization, inpatient, for acute respiratory failure Coding Level of Care Code Acute Bender Hand for [facility] Diagnoses Acute and chronic respiratory failure with hypoxia J96.21 Chest pain R07.9 Atherosclerosis of [place] arteries of extremity with intermittent claudication I70.219 CHF (congestive heart failure) I50.9 Atrial fibrillation I48.91 Acute pulmonary embolism I26.99 CVA (cerebral vascular accident) I63.9
[2019-07-25] MEDS: potassium chloride oral liq 20 mEq/15 mL UDC 40 MEQ PO (12:02)
[2019-07-25] MEDS: lisinopril 5 mg Tablet PO (13:16)
--- NOTE | 2019-07-25 18:17 | PC.NURSE ---
Patient's HR is 58 Metoprolol held.
--- NOTE | 2019-07-25 19:59 | PC.NURSE ---
Dr. Will notified of c-diff coming back negative. Patient is asking for something to help with gas and diarrhea.
[2019-07-25] MEDS: FUROsemide 10 mg/mL SDV 4mL 40 MG IVP (21:20)
[2019-07-25] MEDS: loperamide 2 mg Capsule 4 MG PO (21:21)
[2019-07-25 23:08] LABS: Glucose Point of Care 129 mg/dL (70-110)
[2019-07-26] VITALS (7 sets, daily range): BP systolic 106–135; BP diastolic 56–71; PULSE 65–892; RESP 22–36; TEMP 36.6–36.9; O2SAT 92–99
[2019-07-26 05:32] LABS: Basophils % 0.3 %; Eosinophils # 0.1 10^3/uL (0.0-0.8); Eosinophils % 0.4 %; Hematocrit 42.7 % (42.0-52.0); Hemoglobin 14.8 g/dL (11.7-16.6); Lymphocytes # 1.3 10^3/uL (0.8-4.8); Lymphocytes % 9.4 %; Mean Corpuscular HGB Conc 34.7 g/dL (30.0-36.0); Mean Corpuscular Hemoglobin 34.1 pg (28.0-34.0); Mean Corpuscular Volume 98.4 fL (80-94); Monocytes # 1.8 10^3/uL (0.2-0.9); Monocytes % 12.8 %; Neutrophils # 10.6 10^3/uL (1.8-7.7); Neutrophils % 76.7 %; Nucleated Red Blood Cells % 0 %; Platelet Count 164 10^3/cmm (130-400); Red Blood Count 4.34 10^6/uL (4.1-5.3); Red Cell Distribution Width 15.4 % (12.1-15.1); White Blood Count 13.8 10^3/uL (4.0-10.0)
[2019-07-26] MEDS: FUROsemide 10 mg/mL SDV 4mL 40 MG IVP ×3 (05:37→21:52)
--- NOTE | 2019-07-26 06:04 | PC.NURSE ---
Patient had incontinent episode of a large amount of urine. Brief and linen change provided.
[2019-07-26 06:15] LABS: Alanine Aminotransferase 7 U/L (0-41); Albumin Level 3.8 g/dL (3.5-5.2); Alkaline Phosphatase 88 IU/L (40-130); Anion Gap 15.7 (5-19); Aspartate Amino Transferase 14 U/L (0-40); Blood Urea Nitrogen 17 mg/dL (8-23); Calcium 9.2 mg/dL (8.5-10.5); Carbon Dioxide 30 mmol/L (22-29); Chloride 98 mmol/L (98-107); Globulin 2.7 g/dL (1.3-4.6); Glucose 108 mg/dL (65-115); Magnesium 1.8 mg/dL (1.7-2.3); Osmolality Calculated 287 mOsm/kg (285-295); Phosphorus 3.3 mg/dL (2.5-4.5); Potassium 3.7 mmol/L (3.5-5.1); Sodium 140 mmol/L (136-145); Total Bilirubin 1.2 mg/dL (0.15-1.2); Total Protein 6.5 g/dL (6.6-8.7)
[2019-07-26 06:32] LABS: Glucose Point of Care 114 mg/dL (70-110)
[2019-07-26] MEDS: lisinopril 5 mg Tablet PO (09:34)
[2019-07-26] MEDS: metoprolol tartrate 25 mg Tablet PO ×2 (09:34→17:33)
[2019-07-26] MEDS: potassium chloride oral liq 20 mEq/15 mL UDC 40 MEQ PO (09:34)
[2019-07-26] MEDS: aspirin 81 mg EC Tablet PO (09:34)
[2019-07-26] MEDS: atorvastatin 40 mg Tablet PO (09:34)
--- NOTE | 2019-07-26 11:12 | PC.CHAP ---
Pastoral Care Encounter/Spiritual Assessment Type of Contact [] Declined chain pegger visit [] Patient/Family/Request visit [] Outpatient visit [] Follow-up visit [] Physician referral [] Code/Alert [X] Routine visit [] Staff referral [] Actively dying [] Patient sleeping [] Family support [] [] Out of room [] Palliative care [] [] Receiving care in room [] Pre-surgical visit [] Trauma [] Long length of stay [] ICU visit [] Other: Relational/Emotional Strength [] Patient feels connected with others/family/visitors/staff [] Distress [] Loneliness/isolation [] Abandonment Spirituality of Patient [X] Person of Dai [] Attends Moravian of their Dai [] Believes in Prayer [] Reads Bible or Judaism materials [] There are Spiritual issues to be addressed Customer Support Agent Interventions [] Prayer [] Active listening [] Non-anxious presence [] Spiritual/emotional support [] Crisis/trauma care [] Spiritual counseling [] Bereavement support [] Provided bereavement packet [] Provided Bible/devotional materials [] Provided toy/stuffed animal, coloring book to patient or family member [] Provided Communion [] Anointing/[place] [] Salvation [] Completed spiritual assessment [] Other: Impact on Illness or Injury [] Angry [] Fearful [] Anxious [] Often cries [] Exhaustion [] Unable to work [] Unable to attend cheondoism [] Unable to walk/stand [] Unable to read [] Unable to drive [] Unable to eat/drink [] Unable to sleep [] Unable to be with family [] Patient intubated [] Other: Summary Time spent with patient
[2019-07-26 12:00] LABS: Glucose Point of Care 102 mg/dL (70-110)
--- NOTE | 2019-07-26 12:33 | P.PN_ITS ---
Subjective Subjective: Interval history: This morning patient states that at rest he does not have any chest pain, no shortness of breath, but when he gets up and ambulates he feels short of breath, no lightheadedness, no dizziness, no nausea, no vomiting, overall his exertional symptoms are slow to improve Vitals/I&O/Wt Last Vital Signs Temp 98.0 F 07/26/19 07:42 Pulse 74 07/26/19 09:01 Resp 27 H 07/26/19 07:42 BP 114/62 07/26/19 07:42 Pulse Ox 98 07/26/19 09:01 07/25/19 07/26/19 07/26/19 22:59 06:59 14:59 Intake Total 360 / 1080 100 / 1180 240 / 240 Output Total 700 / 860 1500 / 2360 Balance -340 / 220 -1400 / -1180 240 / 240 Weight last 48 hrs Weight 114.505 kg Weight 116.936 kg Weight 102.058 kg Physical Exam Const: COMMON NORMALS: no acute distress and patient oriented x3 HENMT: COMMON NORMALS: normocephalic HEAD & SCALP: normocephalic Neck/C-Spine: COMMON NORMALS: no JVD Resp: COMMON NORMALS: normal respiratory effort, No retractions, No use of accessory muscles and clear to auscultation bilaterally AUSCULTATION: clear to auscultation bilaterally Cardio: COMMON NORMALS: no JVD, regular rate, regular rhythm, S1 normal heart sound present and S2 normal heart sound present RATE: regular rate RHYTHM: regular rhythm HEART SOUNDS: S1 normal heart sound present and S2 normal heart sound present GI: COMMON NORMALS: Normal to inspection, nondistended, normoactive bowel sounds present, Soft to palpation, non-tender, No hepatosplenomegaly present, no masses and no bruits PALPATION: Yes Soft to palpation and Yes No hepatospl enomegaly present Extremity: COMMON NORMALS: capillary refill normal, no clubbing, cyanosis or edema, no calf tenderness and no pedal edema NARRATIVE EXTREMITY EXAM: 1+ edema Neuro: COMMON NORMALS: patient oriented x3 Psych: COMMON NORMALS: mental status grossly normal Data : 07/26/19 04:28 07/26/19 04:28 Micro: Microbiology 07/25/19 09:40 C.difficile Toxin B Gene (PCR) - Final Stool A&P Assessment and plan (1) Acute and chronic respiratory failure with hypoxia: -Multifactorial secondary to right middle and right lower lobe pulmonary embolism, and systolic heart failure, cardiomyopathy, pulmonary edema, left pleural effusion -Has complaints of left-sided chest pain, shortness of breath, orthopnea, paroxysmal nocturnal dyspnea, shortness of breath with exertion, by lower extremity edema -Patient has failed anticoagulation on rivaroxaban that he takes for atrial fibrillation, as his PE has occurred on this medication, I spoke to Dr. Soto who advised to switch to a anticoagulation with a different mechanism of action, such as Pradaxa or Coumadin, but needs anticoagulation for Lovenox for now -CT angiogram shows pulmonary embolism in the right lower lobe and right middle lobe, mild right ventricular free wall enlargement, mild right ventricular free wall hypokinesis t -Patient's EKG shows right bundle branch block, atrial fibrillation, no acute ST-T wave changes, echocardiogram shows severe global hypokinesis, ejection fraction 25 to 30%, grade 3 diastolic dysfunction, mild right ventricular free wall hypokinesis, mild pulmonary hypertension -Also has moderate right pleural effusion, pulmonary edema, cardiomegaly seen on imaging -6-hour troponin 13.3, delta 0.31, BNP 1285 Currently requiring 2 L of oxygen Plan; -Admit to CSU -Oxygen therapy protocol -Aspirin, statin, beta-genia -Continue therapeutic Lovenox, switch to Pradaxa on discharge -Monitor for chest pain, monitor telemetry, monitor EKGs -Until Sunday, n.p.o. midnight on Sunday night, stress test on Sunday given significant drop in ejection fraction -We will do a cardiac stress test on Sunday -Lasix 40 mg IV twice daily, potassium replacement 40 mg daily -Daily weights, fluid restrictions less than 15 or cc, physical therapy Status: Acute (2) Chest pain: Status: Acute (3) Atherosclerosis of [place] arteries of extremity with intermittent claudication: Status: Acute (4) CHF (congestive heart failure): Status: Acute (5) Atrial fibrillation: Discharged on beta-genia and Pradaxa Status: Acute (6) Acute pulmonary embolism: Status: Acute (7) CVA (cerebral vascular accident): -History of right-sided CVA, with residual left-sided weakness -Has had multiple CVAs in the past -Was on aspirin, rivaroxaban Status: Acute Additional A&P Information Full code Lovenox for DVT prophylaxis Attestations Medical Necessity Statement*: Requires continued hospitalization due to acute respiratory failure secondary to pulmonary embolism, systolic heart failure pulmonary edema, requiring stress test on Sunday Coding Level of Care Code 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
[2019-07-26] MEDS: enoxaparin 100 mg/mL Syringe SUBCUT ×2 (12:53→21:52)
[2019-07-26] MEDS: loperamide 2 mg Capsule 4 MG PO (14:54)
[2019-07-26 17:08] LABS: Glucose Point of Care 96 mg/dL (70-110)
[2019-07-26 21:05] LABS: Glucose Point of Care 133 mg/dL (70-110)
[2019-07-27] VITALS (9 sets, daily range): BP systolic 102–130; BP diastolic 44–88; PULSE 58–94; RESP 18–60; TEMP 36.4–37.1; O2SAT 94–99
[2019-07-27 05:02] LABS: Basophils % 0.3 %; Eosinophils # 0.1 10^3/uL (0.0-0.8); Eosinophils % 0.7 %; Hematocrit 42.8 % (42.0-52.0); Hemoglobin 13.8 g/dL (11.7-16.6); Lymphocytes # 1.9 10^3/uL (0.8-4.8); Lymphocytes % 12.3 %; Mean Corpuscular HGB Conc 32.2 g/dL (30.0-36.0); Mean Corpuscular Hemoglobin 31.2 pg (28.0-34.0); Mean Corpuscular Volume 96.6 fL (80-94); Monocytes # 1.7 10^3/uL (0.2-0.9); Monocytes % 11.3 %; Neutrophils # 11.3 10^3/uL (1.8-7.7); Neutrophils % 74.7 %; Nucleated Red Blood Cells % 0 %; Platelet Count 171 10^3/cmm (130-400); Red Blood Count 4.43 10^6/uL (4.1-5.3); Red Cell Distribution Width 14.7 % (12.1-15.1); White Blood Count 15.1 10^3/uL (4.0-10.0)
--- NOTE | 2019-07-27 05:14 | PC.NURSE ---
End of Shift: Patient rested well and has been up and down to the bathroom. Patient remains AxO x3 and vitals remains stable.
[2019-07-27 05:16] LABS: Alanine Aminotransferase 8 U/L (0-41); Albumin Level 3.6 g/dL (3.5-5.2); Alkaline Phosphatase 85 IU/L (40-130); Anion Gap 16.8 (5-19); Aspartate Amino Transferase 12 U/L (0-40); Blood Urea Nitrogen 22 mg/dL (8-23); Calcium 8.8 mg/dL (8.5-10.5); Carbon Dioxide 30 mmol/L (22-29); Chloride 96 mmol/L (98-107); Globulin 2.8 g/dL (1.3-4.6); Glucose 104 mg/dL (65-115); Magnesium 1.8 mg/dL (1.7-2.3); Osmolality Calculated 285 mOsm/kg (285-295); Phosphorus 3.5 mg/dL (2.5-4.5); Potassium 3.8 mmol/L (3.5-5.1); Sodium 139 mmol/L (136-145); Total Bilirubin 1.1 mg/dL (0.15-1.2); Total Protein 6.4 g/dL (6.6-8.7)
[2019-07-27] MEDS: FUROsemide 10 mg/mL SDV 4mL 40 MG IVP (05:34)
[2019-07-27 06:38] LABS: Glucose Point of Care 86 mg/dL (70-110)
--- NOTE | 2019-07-27 08:05 | XRR_ITS ---
PROCEDURE INFORMATION: Exam: XR Abdomen, 1 View Exam date and time: 07/27/2019 8:06 AM Age: 84 years old Clinical indication: Other: Diarrhea TECHNIQUE: Imaging protocol: XR of the abdomen. Views: Frontal supine view of the abdomen. 1 View. COMPARISON: No relevant prior studies available. FINDINGS: Evaluation is limited by portable positioning and patient body habitus. Lungs: Asymmetric right basilar airspace/pleural disease. Gastrointestinal tract: Mild bowel dilatation. Vasculature: Vascular calcification. Bones/joints: Degenerative change. XR/XR KUB portable [id number] IMPRESSION: Mild bowel dilatation.
[2019-07-27] MEDS: aspirin 81 mg EC Tablet PO (08:52)
[2019-07-27] MEDS: atorvastatin 40 mg Tablet PO (08:52)
[2019-07-27] MEDS: lisinopril 5 mg Tablet PO (08:52)
[2019-07-27] MEDS: metoprolol tartrate 25 mg Tablet PO ×2 (08:52→17:44)
[2019-07-27] MEDS: potassium chloride oral liq 20 mEq/15 mL UDC 40 MEQ PO (08:53)
--- NOTE | 2019-07-27 10:55 | PM.PN ---
Subjective Subjective: Interval history: Overnight patient had no significant complaints, has had no significant chest pain, shortness of breath has significantly improved, ambulating well, lungs sound much more clear, patient does have complaints of profuse diarrhea for the last 24 hours, his C. difficile is negative, Imodium is not helping, afebrile, normotensive Vitals/I&O/Wt Last Vital Signs Temp 97.6 F 07/27/19 08:00 Pulse 86 07/27/19 08:59 Resp 25 H 07/27/19 08:00 BP 130/88 07/27/19 08:00 Pulse Ox 99 07/27/19 08:59 07/26/19 07/27/19 07/27/19 22:59 06:59 14:59 Intake Total 480 / 840 120 / 960 Output Total 200 / 400 350 / 750 500 / 500 Balance 280 / 440 -230 / 210 -500 / -500 Weight last 48 hrs Weight 112.718 kg Weight 114.505 kg Physical Exam Const: COMMON NORMALS: no acute distress and patient oriented x3 HENMT: COMMON NORMALS: normocephalic HEAD & SCALP: normocephalic Neck/C-Spine: COMMON NORMALS: no JVD Resp: COMMON NORMALS: normal respiratory effort, No retractions, No use of accessory muscles and clear to auscultation bilaterally AUSCULTATION: clear to auscultation bilaterally Cardio: COMMON NORMALS: no JVD, regular rate, regular rhythm, S1 normal heart sound present and S2 normal heart sound present RATE: regular rate RHYTHM: regular rhythm HEART SOUNDS: S1 normal heart sound present and S2 normal heart sound present GI: COMMON NORMALS: Normal to inspection, nondistended, normoactive bowel sounds present, Soft to palpation, non-tender, No hepatosplenomegaly present, no masses and no bruits PALPATION: Yes Soft to palpation and Yes No hepatosplenomegaly present Extremity: COMMON NORMALS: capillary refill normal, no clubbing, cyanosis or edema, no calf tenderness and no pedal edema NARRATIVE EXTREMITY EXAM: 1+ edema Neuro: COMMON NORMALS: patient oriented x3 Psych: COMMON NORMALS: mental status grossly normal Data : 07/27/19 04:29 07/27/19 04:29 A&P Assessment and plan (1) Acute and chronic respiratory failure with hypoxia: -Multifactorial secondary to right middle and right lower lobe pulmonary embolism, and systolic heart failure, cardiomyopathy, pulmonary edema, left pleural effusion -Has complaints of left-sided chest pain, shortness of breath, orthopnea, paroxysmal nocturnal dyspnea, shortness of breath with exertion, by lower extremity edema -Patient has failed anticoagulation on rivaroxaban that he takes for atrial fibrillation, as his PE has occurred on this medication, I spoke to Dr. Soto who advised to switch to a anticoagulation with a different mechanism of action, such as Pradaxa or Coumadin, but needs anticoagulation for Lovenox for now -CT angiogram shows pulmonary embolism in the right lower lobe and right middle lobe, mild right ventricular free wall enlargement, mild right ventricular free wall hypokinesis t -Patient's EKG shows right bundle branch block, atrial fibrillation, no acute ST-T wave changes, echocardiogram shows severe global hypokinesis, ejection fraction 25 to 30%, grade 3 diastolic dysfunction, mild right ventricular free wall hypokinesis, mild pulmonary hypertension -Also has moderate right pleural effusion, pulmonary edema, cardiomegaly seen on imaging -6-hour troponin 13.3, delta 0.31, BNP 1285 Currently requiring 1 L of oxygen Plan; -Admit to [facility]SU -Oxygen therapy protocol -Aspirin, statin, beta-genia -Continue therapeutic Lovenox, switch to Pradaxa on discharge -Monitor for chest pain, monitor telemetry, monitor EKGs -Until Sunday, n.p.o. 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
[2019-07-27 11:13] LABS: Glucose Point of Care 101 mg/dL (70-110)
[2019-07-27] MEDS: enoxaparin 100 mg/mL Syringe SUBCUT ×2 (11:16→21:38)
[2019-07-27] MEDS: FUROsemide 40 mg Tablet PO (13:44)
[2019-07-27 16:19] LABS: Glucose Point of Care 111 mg/dL (70-110)
[2019-07-27] MEDS: simethicone 80 mg Chew PO (17:44)
[2019-07-27 20:45] LABS: Glucose Point of Care 118 mg/dL (70-110)
--- NOTE | 2019-07-27 23:38 | PC.NURSE ---
Patient refused midnight vitals. He stated if he was sleep to let him rest to due him not resting well the last couple of days. Will continue to monitor.
[2019-07-28] VITALS (8 sets, daily range): BP systolic 107–140; BP diastolic 52–69; PULSE 64–97; RESP 20–27; TEMP 36.6–37.2; O2SAT 92–98
[2019-07-28 05:15] LABS: Basophils % 0.3 %; Eosinophils # 0.2 10^3/uL (0.0-0.8); Eosinophils % 1.8 %; Hematocrit 42.4 % (42.0-52.0); Hemoglobin 13.9 g/dL (11.7-16.6); Lymphocytes # 1.6 10^3/uL (0.8-4.8); Lymphocytes % 16.1 %; Mean Corpuscular HGB Conc 32.8 g/dL (30.0-36.0); Mean Corpuscular Volume 97.7 fL (80-94); Mean Platelet Volume 11.2 fL (7.4-10.4); Monocytes # 1.4 10^3/uL (0.2-0.9); Neutrophils # 6.4 10^3/uL (1.8-7.7); Neutrophils % 66.4 %; Nucleated Red Blood Cells % 0 %; Platelet Count 174 10^3/cmm (130-400); Red Blood Count 4.34 10^6/uL (4.1-5.3); Red Cell Distribution Width 14.6 % (12.1-15.1); White Blood Count 9.6 10^3/uL (4.0-10.0)
[2019-07-28 05:33] LABS: Alanine Aminotransferase 7 U/L (0-41); Albumin Level 3.4 g/dL (3.5-5.2); Alkaline Phosphatase 93 IU/L (40-130); Anion Gap 14.9 (5-19); Aspartate Amino Transferase 14 U/L (0-40); Blood Urea Nitrogen 24 mg/dL (8-23); Calcium 8.9 mg/dL (8.5-10.5); Carbon Dioxide 31 mmol/L (22-29); Chloride 96 mmol/L (98-107); Glucose 98 mg/dL (65-115); Magnesium 1.9 mg/dL (1.7-2.3); Osmolality Calculated 283 mOsm/kg (285-295); Phosphorus 3.4 mg/dL (2.5-4.5); Potassium 3.9 mmol/L (3.5-5.1); Sodium 138 mmol/L (136-145); Total Protein 6.4 g/dL (6.6-8.7)
--- NOTE | 2019-07-28 06:00 | ECG_ITS ---
NAME OF STUDY: LEXISCAN SESTAMIBI STRESS TEST INDICATION: Chest Pain, NOTE: Please note that this is the electrocardiogram portion of the Lexiscan/Sestamibi stress test. The perfusion scan will be documented separately. DATA: Baseline heart rate was 80 beats per minute. Baseline blood pressure was 130/72 millimeters of mercury. Target heart rate was 136. Maximum heart rate achieved was 100. which was 73 % of the predicted target heart rate. Maximum blood pressure was 142/72 millimeters of mercury. The reason for ending the test was completion of the protocol. The patient did not experience any symptoms. ELECTROCARDIOGRAM: BASELINE: Sinus rhythm. Normal axis. Frequent PVCs, otherwise, no ST-T changes suggestive of ischemia noted. EXERCISE: After Lexiscan injection, no ST-T changes suggestive of ischemic noted. No arrhythmia noted. Frequent PVCs were noted. CONCLUSION: Please note due to baseline abnormality of the EKG specificity and sensitivity of the EKG portion of LexiScan MIBI stress test will be low 1. EKG not suggestive of ischemia 2. Lexiscan injection unremarkable. 3. Perfusion scan will be documented separately. Electronically Signed On 07-28-2019 17:59:16 CDT by Tai Tello M.D. [email or web address]
--- NOTE | 2019-07-28 06:05 | PC.NURSE ---
End of shift: Patient rested well this shift. No episodes of diarrhea. Remains alert and oriented. Will continue to monitor.
[2019-07-28 06:08] LABS: Glucose Point of Care 95 mg/dL (70-110)
[2019-07-28] MEDS: regadenoson 0.4 Mg/5 ml Syringe IVP (08:39)
--- NOTE | 2019-07-28 09:56 | DCPLANNER ---
Pg 2 of IM updated and reviewed with pt. No questions, copy provided.
[2019-07-28] MEDS: atorvastatin 40 mg Tablet PO (10:04)
[2019-07-28] MEDS: FUROsemide 40 mg Tablet PO ×2 (10:04→16:39)
[2019-07-28] MEDS: metoprolol tartrate 25 mg Tablet PO ×2 (10:04→17:56)
[2019-07-28] MEDS: lisinopril 5 mg Tablet PO (10:04)
[2019-07-28] MEDS: potassium chloride oral liq 20 mEq/15 mL UDC 40 MEQ PO (10:05)
[2019-07-28] MEDS: aspirin 81 mg EC Tablet PO (10:05)
[2019-07-28] MEDS: enoxaparin 100 mg/mL Syringe SUBCUT (10:15)
--- NOTE | 2019-07-28 10:54 | NMCV_ITS ---
NM cyndie perf SPECT r/s* [id number] Rober Smiley Age: 84 Gender: M : 1935 Exam Date: 07/28/2019 07:24 Ordering Phys: Joel Harris MD Technologist: VIDA Leonardo Exam Location: [facility] Indications: STRESS TEST Please see separate stress test report in [facility] for full findings IMAGE PROTOCOL Rest/Stress 1 Lexiscan Day Radiopharmaceutical Dose (mCi) Administration Site Administered by Rest: Tc-99m 11.0 IV VIDA Moreno Sestamibi Stress:Tc-99m 32.4 IV VIDA Moreno Sestamibi Rest: 28-Jul-2019 60 Discovery 630 Stress: 28-Jul-2019 30 Discovery 630 0.4mg Lexiscan. Images obtained in supine and prone position. SPECT RESULTS Technical Quality: Excellent Raw Data Analysis: Normal Image Corrections: No attenuation or motion correction applied Summed Stress Score: 7 Summed Rest Score: 8 Summed Difference Score: 1 PERFUSION FINDINGS Large area of fixed perfusion fact noted in basal to distal inferior and basal to mid inferolateral wall on both rest and stress images suggestive of old myocardial infarction versus scarring. Please note that in the absence of prone images cannot rule out artifact. This study is negative for ischemia. EKG segment will be documented separately. FUNCTIONAL RESULTS (calculated via Gated SPECT) Stress Image LV EF (%): 40 Stress EDV (mL):161 TID: 1.1 Stress ESV (mL):97 Rest Image LV EF (%): 40 FUNCTIONAL FINDINGS: There appeared to be inferior wall hypokinesis. Moderately depressed LV function however it may not be reliable. IMPRESSIONS Large area of old myocardial infarction versus scarring noted in the basal to distal inferior and basal to mid inferolateral wall suggestive of old myocardial infarction versus scarring. This study is negative for ischemia. Please note that patient was not able to perform the prone images therefore cannot rule out artifact.TID ratio is elevated which could be secondary to multivessel coronary artery disease or left ventricular hypertrophy/subendocardial ischemia. EKG segment will be documented separately. Tai Tello MD (Electronically Signed) Final Date: 28 July 2019 12:35 S
[2019-07-28 11:10] LABS: Glucose Point of Care 134 mg/dL (70-110)
--- NOTE | 2019-07-28 13:44 | P.PN_ITS ---
Subjective Subjective: Interval history: No acute events overnight. Patient denies of any chest pain, shortness of breath, has been walking around the hallway, denies of having any further episodes of diarrhea. Denies of having any palpitation, dizziness, headache. Patient seen today post Vitals/I&O/Wt Last Vital Signs Temp 98.0 F 07/28/19 10:47 Pulse 88 07/28/19 10:47 Resp 27 H 07/28/19 10:47 BP 140/68 07/28/19 10:47 Pulse Ox 95 07/28/19 10:47 07/27/19 07/28/19 07/28/19 22:59 06:59 14:59 Intake Total 360 / 840 150 / 990 600 / 600 Output Total 100 / 900 250 / 1150 300 / 300 Balance 260 / -60 -100 / -160 300 / 300 Weight last 48 hrs Weight 110.994 kg Weight 112.718 kg Physical Exam Narrative: EXAM NARRATIVE: General: No acute distress, AO x3 HEENT: PERRLA, pupils bilaterally equal and reactive Chest: Normal vesicular breath sounds, occasional fine crackles bilaterally lower zone, equal good air entry bilaterally CVS: S1-S2 regular, occasional missed beats, pansystolic murmur at apex, S3 g allop, Abdomen: Soft, nontender, no organomegaly, bowel sounds present Neuro: No focal deficits, no facial deformity, AO x3, power 5/5 in all limbs Data : 07/28/19 04:37 07/28/19 04:37 A&P Assessment and plan (1) Acute and chronic respiratory failure with hypoxia: Status: Acute (2) Acute pulmonary embolism: Status: Acute (3) Chest pain: Status: Acute (4) CHF (congestive heart failure): Status: Acute (5) Atrial fibrillation: Status: Acute (6) CVA (cerebral vascular accident): -History of right-sided CVA, with residual left-sided weakness -Has had multiple CVAs in the past -Was on aspirin, rivaroxaban Status: Acute (7) Atherosclerosis of [place] arteries of extremity with intermittent claudication: Status: Acute Additional A&P Information Acute on chronic hypoxic respiratory failure: Most likely a combination of congestive heart failure of systolic and diastolic type along with pulmonary embolism. Echocardiogram shows an EF of 25 to 30%, grade 3 diastolic dysfunction, mild RV free wall hypokinesis, mild pulmonary hypertension. Because of acute drop in ejection fraction most likely nonischemic type as stress test has come back normal. Most likely because of prolonged tachycardia as patient was not on any rate limiting drug as an outpatient. Patient denies of having history of alcohol abuse, type 2 diabetes, recent flulike symptoms, r ecent prolonged hospitalization. Will increase Lasix to 40 mg twice daily. Strict input output charting, daily weights. Overall patient is around 600 cc negative since admission. Patient is euvolemic at present. Continue fluid restriction. Xarelto failure: Patient was on Xarelto for atrial fibrillation as an outpatient when he developed pulmonary embolism. Case discussed with Dr. Soto. Will convert over to Pradaxa. Start full dose Lovenox and start Pradaxa on next scheduled dose. Oxygen supplementation keeping saturation over 90%. Atrial fibrillation: Rate limited. Continue with metoprolol at current dose. Sanjay Vas score: 6 As discussed above we will switch Lovenox to Pradaxa. Diarrhea: C. difficile negative once. Was repeated again and results awaited. No more diarrhea in the last 24 hours. We will continue to monitor. Full code Pradaxa Cardiac diet. Continues to do well most likely can discharge tomorrow. Attestations Medical Necessity Statement*: Acute on chronic hypoxic respiratory failure, pulmonary embolism, congestive heart failure Time Spent in Patient Care: Greater than 35 minutes Coding Level of Care Code Acute Physical Therapist Technician for Antoinette Stovall Diagnoses Acute and chronic respiratory failure with hypoxia J96.21 Acute pulmonary embolism I26.99 Chest pain R07.9 CHF (congestive heart failure) I50.9 Atrial fibrillation I48.91 CVA (cerebral vascular accident) I63.9 Atherosclerosis of [place] arteries of extremity with intermittent claudication I70.219
--- NOTE | 2019-07-28 13:45 | PC.NURSE ---
during rounding with . pt stated [facility] wants meds to bed upon discharge to cover [facility].
[2019-07-28 16:19] LABS: Glucose Point of Care 111 mg/dL (70-110)
[2019-07-28] MEDS: acetaminophen 325 mg Tablet PO (20:04)
--- NOTE | 2019-07-28 20:08 | PC.NURSE ---
Patient stated that he had been using the toilet to pee. Patient educated to use urinal in order for us to measure urine output. Patient verbalized understanding. Will continue to monitor.
[2019-07-28 20:18] LABS: Glucose Point of Care 118 mg/dL (70-110)
--- NOTE | 2019-07-29 01:22 | PC.NURSE ---
Patient is currently resting with eyes closed. Will continue to monitor.
[2019-07-29 03:01] VITALS: BP 152/75; PULSE 64; RESP 24; TEMP 36.8; O2SAT 92
[2019-07-29 03:43] LABS: Basophils % 0.4 %; Eosinophils # 0.2 10^3/uL (0.0-0.8); Eosinophils % 1.9 %; Hematocrit 42.9 % (42.0-52.0); Lymphocytes # 1.7 10^3/uL (0.8-4.8); Lymphocytes % 20.5 %; Mean Corpuscular HGB Conc 32.6 g/dL (30.0-36.0); Mean Corpuscular Hemoglobin 31.5 pg (28.0-34.0); Mean Corpuscular Volume 96.4 fL (80-94); Mean Platelet Volume 10.9 fL (7.4-10.4); Monocytes # 1.3 10^3/uL (0.2-0.9); Neutrophils # 5.2 10^3/uL (1.8-7.7); Neutrophils % 61.8 %; Nucleated Red Blood Cells % 0 %; Platelet Count 164 10^3/cmm (130-400); Red Blood Count 4.45 10^6/uL (4.1-5.3); Red Cell Distribution Width 14.6 % (12.1-15.1); White Blood Count 8.3 10^3/uL (4.0-10.0)
[2019-07-29 04:08] LABS: Alanine Aminotransferase 11 U/L (0-41); Albumin Level 3.7 g/dL (3.5-5.2); Alkaline Phosphatase 113 IU/L (40-130); Anion Gap 14.1 (5-19); Aspartate Amino Transferase 16 U/L (0-40); Blood Urea Nitrogen 23 mg/dL (8-23); Calcium 8.7 mg/dL (8.5-10.5); Carbon Dioxide 31 mmol/L (22-29); Chloride 97 mmol/L (98-107); Globulin 2.6 g/dL (1.3-4.6); Glucose 104 mg/dL (65-115); Magnesium 2.1 mg/dL (1.7-2.3); Osmolality Calculated 283 mOsm/kg (285-295); Phosphorus 3.4 mg/dL (2.5-4.5); Potassium 4.1 mmol/L (3.5-5.1); Sodium 138 mmol/L (136-145); Total Protein 6.3 g/dL (6.6-8.7)
[2019-07-29 06:43] LABS: Glucose Point of Care 94 mg/dL (70-110)
--- NOTE | 2019-07-29 06:48 | PC.NURSE ---
Patient's heart rate dropped down into 40s and 50s for brief periods of time last night. Patient did not maintain this heart rate. Patient is currently maintaining heart rate in the 60s A-fib with PVCs. Will continue to monitor.
[2019-07-29 07:26] VITALS: BP 134/62; PULSE 70; RESP 29; TEMP 36.7; O2SAT 97
--- NOTE | 2019-07-29 07:35 | NUR.SHIFT ---
pt resting in bed this morning. states that he is ready to go home so he can sleep in his own bed. pt awaiting to see if dr is going to discharge. call light placed within reach. will continue to monitor.
[2019-07-29] MEDS: aspirin 81 mg EC Tablet PO (08:25)
[2019-07-29] MEDS: FUROsemide 40 mg Tablet PO (08:25)
[2019-07-29] MEDS: atorvastatin 40 mg Tablet PO (08:25)
[2019-07-29] MEDS: metoprolol tartrate 25 mg Tablet PO (08:26)
[2019-07-29] MEDS: lisinopril 5 mg Tablet PO (08:26)
[2019-07-29] MEDS: potassium chloride oral liq 20 mEq/15 mL UDC 40 MEQ PO (08:26)
--- NOTE | 2019-07-29 09:47 | PC.RESP ---
PULMONARY REHAB INFORMATION SENT TO PATIENT.
[2019-07-29 10:52] VITALS: BP 125/69; PULSE 62; RESP 26; TEMP 36.5; O2SAT 94
[2019-07-29 10:59] LABS: Glucose Point of Care 147 mg/dL (70-110)
[2019-07-29 11:25] VITALS: PULSE 72; O2SAT 96
--- NOTE | 2019-07-29 12:42 | PM.DCS ---
Discharge Providers Date of Admission: 07/25/19 11:45 Date of Discharge: July 29, 2019 Attending Provider at Admission: Tai Will MD Attending Provider at Discharge: Marcello Tellez MD Primary Care Provider: WILFREDO Brandt Diagnoses at Discharge Discharge Diagnosis (1) Acute and chronic respiratory failure with hypoxia: Status: Acute (2) Acute pulmonary embolism: Status: Acute (3) Chest pain: Status: Acute (4) CHF (congestive heart failure): Status: Acute (5) Atrial fibrillation: Status: Acute (6) CVA (cerebral vascular accident): Status: Acute Problem details: 2019 (7) Atherosclerosis of eagle arteries of extremity with intermittent claudication: Status: Acute Problem details: Nonobstructive coronary artery disease Reason for Visit Reason for Visit: N/V/D, L SIDE CHEST PAIN Hospital Course Discharge Summary: Rober Smiley is a 84 year old male who has a known history of atrial fibrillation, chronic anticoagulation with rivaroxaban, congestive heart failure of unknown type, CVA coming in today after experiencing sharp chest pain. Patient is stating that around 6 PM he started experiencing left-sided chest pain which was radiating towards his arm and left shoulder, he felt nauseous with some dry heaves, chest pain lasted for about few minutes, for last couple of weeks he has been having orthopnea, PND, he has gained few pounds, his legs are swollen, he takes Lasix 40 mg a day. CTA chest was done on admission which showed that he had new PE in right middle and lower lobe. His acute on chronic respiratory failure was thought to be multifactorial to pulmonary embolism and congestive systolic heart failure. Echocardiogram was done which showed an EF of 25 to 30% with grade 3 diastolic dysfunction with mild RV free wall hypokinesis and mild pulmonary hypertension. For pulmonary embolism: He was initially treated with full dose Lovenox to which he tolerated well and has respiratory status improved. Patient is on rivaroxaban as an outpatient for atrial fibrillation for a long time on which she developed new thrombosis. Given the fact he is a failure to Xarelto. Case was discussed with hematology and he was transitioned over to Pradaxa. He has tolerated the transition well. For congestive heart failure: Patient's echocardiogram were a lot worse as compared to his last echocardiogram earlier in 2018. To determine the cause of decreasing ejection fraction and to rule out ischemia patient underwent stress test on June 26 which was negative for any active ischemia. It is believed patient's cardiomyopathy is most likely nonischemic due to prolonged A. fib with RVR as on admission patient was not on any rate limiting drugs. For A. fib with RVR: He was started on metoprolol to which he tolerated well and his heart rate responded well. He did not have any episodes of bradycardia or rapid ventricular response while admitted. For optimization of medications for heart failure lisinopril has been added, metoprolol was continued and was not converted to Coreg because of better rate control. It was discussed with patient that he should be on Aldactone but he refused because of concerns with gynecomastia. Patient is been discharged in hemodynamically stable condition with advised to follow-up with his coating mixer supervisor in 2 weeks for further optimization of heart failure medications. Physical Exam Narrative: EXAM NARRATIVE: General: No acute distress, AO x3 HEENT: PERRLA, pupils bilaterally equal and reactive Chest: Normal vesicular breath sounds, occasional fine crackles bilaterally lower zone, equal good air entry bilaterally CVS: S1-S2 regular, occasional missed beats, pansystolic murmur at apex, S3 gallop, Abdomen: Soft, nontender, no organomegaly, bowel sounds present Neuro: No focal deficits, no facial deformity, AO x3, power 5/5 in all limbs Discharge Data Data Completed and Pending: Completed Studies During Hospitalization Category Date Time Status CT angio chest PE protcl [id number] Urge nt Cat Scan 07/24/19 20:21 Completed Sestamibi Stress Test Request Routi ne Exams 07/28/19 06:00 Completed XR KUB portable 7 4018 Routine Exams 07/27/19 08:05 Completed XR chest 1V kristyn ble [id number] Stat Exams 07/24/19 18:51 Completed NM cyndie perf SPECT r/s* 22572 Routin e Nuc Med 07/28/19 10:54 Completed CV echo complete* [id number] Routine Ultrasound 07/25/19 07:00 [place] [id number] Routin e Ultrasound 07/25/19 07:00 Completed Pending at discharge Category Date Time Status Sestamibi Stress Test Request Routi ne Exams 07/27/19 10:54 Stop Req Clostridium Diffi cile BY PCR Routin e Lab 07/27/19 08:05 Ordered Complete Blood Co unt w/Auto AM LABS Lab 07/30/19 04:00 Ordered Comprehensive Met abolic Panel AM LA BS Lab 07/30/19 04:00 Ordered Enteric Bacterial Panel by PCR Rout ine Lab 07/27/19 08:05 Ordered Enteric Parasite Panel by PCR [place] ne Lab 07/27/19 08:05 Ordered Immunochemical Fe kristin OCB Routine Lab 07/27/19 08:05 Ordered Lactoferrin Routi ne Lab 07/27/19 08:05 Ordered Magnesium AM LABS Lab 07/30/19 04:00 Ordered Phosphorus AM LAB S Lab 07/30/19 04:00 Ordered Labs from last 24 hours 07/29/19 07/29/19 07/29/19 10:50 06:19 03:20 WBC RBC Hgb Hct MCV MCH MCHC RDW Plt Count MPV Neut % (Auto) Lymph % (Auto) [place] % (Auto) Eos % (Auto) Baso % (Auto) Neut # (Auto) Lymph # (Auto) [place] # (Auto) Eos # (Auto) Baso # (Auto) Nucleated RBC % (a uto) Nucleated RBCs # Sodium 138 Potassium 4.1 Chloride 97 L Carbon Dioxide 31 H Anion Gap 14.1 BUN 23 Creatinine 1.1 Glucose 104 POC Glucose 147 94 Calculated Osmolal ity 283 L Calcium 8.7 Phosphorus 3.4 Magnesium 2.1 Total Bilirubin 1.0 AST 16 ALT 11 Alkaline Phosphata se 113 Total Protein 6.3 L Albumin 3.7 Globulin 2.6 07/29/19 07/28/19 07/28/19 03:20 20:11 16:03 WBC 8.3 RBC 4.45 Hgb 14.0 Hct 42.9 MCV 96.4 H MCH 31.5 MCHC 32.6 RDW 14.6 Plt Count 164 MPV 10.9 H Neut % (Auto) 61.8 Lymph % (Auto) 20.5 [place] % (Auto) 15.0 Eos % (Auto) 1.9 Baso % (Auto) 0.4 Neut # (Auto) 5.2 Lymph # (Auto) 1.7 [place] # (Auto) 1.3 H Eos # (Auto) 0.2 Baso # (Auto) 0.0 Nucleated RBC % (a uto) 0 Nucleated RBCs # 0.0 Sodium Potassium Chloride Carbon Dioxide Anion Gap BUN Creatinine Glucose POC Glucose 118 111 Calculated Osmolal ity Calcium Phosphorus Magnesium Total Bilirubin AST ALT Alkaline Phosphata se Total Protein Albumin Globulin Vitals: Last Vital Signs Temp 97.7 F 07/29/19 10:52 Pulse 72 07/29/19 11:25 Resp 26 H 07/29/19 10:52 BP 125/69 07/29/19 10:52 Pulse Ox 96 07/29/19 11:25 Discharge Plan Discharge Patient Disposition: Home, Self-Care Condition: Stable Prescriptions: New metoprolol tartrate 25 mg Tablet 25 mg PO BID Qty: 60 RF: 0 simethicone 80 mg Tablet,Chewable 80 mg PO QID PRN (Reason: Flatulence) Qty: 10 RF: 0 lisinopril 5 mg Tablet 5 mg PO DAILY Qty: 30 RF: 0 Pradaxa 150 mg Capsule 150 mg PO BID Qty: 60 RF: 0 Continued potassium chloride 20 mEq/15 mL liquid 20 meq PO DAILY RF: 0 aspirin [Adult Low Dose Aspirin] 81 mg tablet,delayed release (DR/EC) 81 mg PO DAILY RF: 0 multivitamin Tablet 1 tab PO DAILY RF: 0 docusate sodium 100 mg capsule 100 mg PO BID PRN (Reason: Constipation) RF: 0 atorvastatin 80 mg tablet 40 mg PO DAILY RF: 0 trazodone 100 mg tablet 100 mg PO BEDTIME RF: 0 furosemide 80 mg tablet 80 mg PO .1 tab AM, 1/2 tab PM RF: 0 Discontinued Eliquis 5 mg Tablet 5 mg PO BID RF: 0 Discharge Orders: Discharge Order (Routine); Ordered 07/29/19 Ordered By: Marcello Tellez Referrals: Tai Tello MD [Physician] - 2 weeks Mei Flores FNP [Primary Care Provider] - 2 weeks Discharge Diet: Cardiac and Low Salt Discharge Activity: Resume usual activity Patient Instructions: Metoprolol (By mouth), Lisinopril (By mouth), Simethicone (By mouth), Dabigatran (By mouth), Heart Failure (DC), Atrial Fibrillation (DC), Pulmonary Embolism (DC), CHF Stoplight Activity Restrictions/Additional Instructions: Anticoagulation has been changed to dabigatran. Please follow-up with cardiology in 2 weeks for further work-up. As discussed please try to restrict your fluid intake to up to 1.5-2 liters per day. Discharge Attestations Time Spent in Discharge Care*: greater than 30 min Specific Discharge Activities: Specific discharge activities: educating patient, discussing with pcp/other providers, discussing with home health care case manager/social workers/dc planners, documenting/other paperwork and evaluating patient/reviewing data Status at Discharge: Cognitive status at discharge: cognitively intact, Behavioral status at discharge: cooperative, Functional status at discharge: independent ambulation Overall status at discharge: patient is back to baseline Quality Metrics Clinical Quality Measures During this hospital stay, did patient experience: None Coding Level of Care Code Acute Child Welfare Specialist for Antoinette Stovall Diagnoses Acute and chronic respiratory failure with hypoxia J96.21 Acute pulmonary embolism I26.99 Chest pain R07.9 CHF (congestive heart failure) I50.9 Atrial fibrillation I48.91 CVA (cerebral vascular accident) I63.9 Atherosclerosis of eagle arteries of extremity with intermittent claudication I70.219
--- NOTE | 2019-07-29 13:00 | PC.NURSE ---
pt had an uneventful day. dr tavera rounded and was going to put in discharge orders. will continue to monitor pt.
[2019-07-29 13:31] VITALS: BP 125/69; PULSE 72; O2SAT 96
--- NOTE | 2019-07-29 14:30 | PC.NURSE ---
discharge instructions given to pt. pt verbalized an understanding. pt then escorted to door via wheelchair by MID LEVEL NET DEVELOPER where private vehicle picked him up.
== END 2019-07-29 14:35 | disposition home or self-care (01) | DRG 175 ==
LOC: ER 20:19 → CSU 07-25 04:51
PROVIDERS: Emergency Medicine; Family Medicine; Admitting Provider Internal Medicine; Family Provider Nurse Practitioner; PCP Nurse Practitioner; Visit Provider Student in an Organized Health Care Education/Training Program
DX: I26.99 Other pulmonary embolism without acute cor pulmonale (principal); I50.31 Acute diastolic (congestive) heart failure; J96.21 Acute and chronic respiratory failure with hypoxia; I69.954 Hemiplegia and hemiparesis following unspecified cerebrovascular disease affecting left non-dominant side; I42.9 Cardiomyopathy, unspecified; I48.91 Unspecified atrial fibrillation; Z79.01 Long term (current) use of anticoagulants; E11.51 Type 2 diabetes mellitus with diabetic peripheral angiopathy without gangrene; N40.0 Benign prostatic hyperplasia without lower urinary tract symptoms; Z87.891 Personal history of nicotine dependence; E66.01 Morbid (severe) obesity due to excess calories; Z68.34 Body mass index [BMI] 34.0-34.9, adult; I45.10 Unspecified right bundle-branch block; Z79.82 Long term (current) use of aspirin
CPT/HCPCS: 12345; 36415; 36416; 71045; 71275; 74018; 78452; 80048; 80053; 81003; 82962; 83036; 83690; 83735; 83880; 84100; 84443; 84484; 85025; 85378; 85610; 87493; 93005; 93017; 93306; 93970; 96372; 96375; 99283; A9500; G0378; J1650; J1940; J2785; Q0162; Q9967

== ENCOUNTER 2019-08-03 11:12 | Emergency (ER) | payer OTHER, MEDICARE, SELFPAY ==
[2019-08-03 11:22] VITALS: BP 137/70; PULSE 55; RESP 15; TEMP 36.4; O2SAT 96; BMI 30.5
--- NOTE | 2019-08-03 11:32 | W.ED.CHESTPA ---
HPI - Chest Pain General: Chief Complaint: Chest Pain Stated Complaint: CHEST PAIN Time Seen by Provider: 08/03/19 11:17 History of Present Illness: HPI narrative: Sudden onset of substernal chest pain and pressure a short while ago. Patient has shortness of breath nausea and diaphoresis. Symptoms began at rest. Patient is under a severe amount of personal distress as he is granddaughter at his home a few days ago. MD complaint: chest pain, chest heaviness and chest discomfort Pertinent past history: coronary artery disease Onset (ago): minute(s) Prior episodes: Yes Onset: during rest Pain location: substernal Pain radiation: left shoulder Severity: severe Quality: tightness and heaviness Relieving factors: nitroglycerin Exacerbating factors: exertion and stress Context: other (severe life stressor) Associated symptoms: Reports diaphoresis, dyspnea and nausea Treatment prior to arrival: aspirin and nitroglycerin Review of Systems General: Reports: 10 or more systems reviewed and unremarkable except in HPI and below Const: Reports: diaphoresis Card: Reports: chest pain Resp: Reports: dyspnea GI: Reports: nausea PFS ED PFSH: Medical History Atherosclerosis of [place] arteries of extremity with intermittent claudication Nonobstructive coronary artery disease Atrial fibrillation BPH (benign prostatic hyperplasia) CHF (congestive heart failure) CVA (cerebral vascular accident) 2019 Diabetes mellitus Borderline diabetes Osteoarthritis Right bundle branch block Surgical History S/P eye surgery S/P knee surgery S/P tonsillectomy and adenoidectomy Family History Mother CHF (congestive heart failure) Pneumonia Father CHF (congestive heart failure) Stroke Other Diabetes Hypertension Social History (Updated 07/24/19 @ 23:23 by Tai Will MD) Smoking and tobacco status: former smoker Alcohol intake: never Lives independently: Yes 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, [employer] service History of recent travel: No Physical Exam Const: COMMON NORMALS: no acute distress, average body habitus, alert and well nourished EXAM LIMITATIONS: altered mental status GENERAL APPEARANCE: lethargic ORIENTATION/CONSCIOUSNESS: Yes lethargic HENMT: COMMON NORMALS: normocephalic, atraumatic, hearing grossly normal bilaterally, external ears normal, EAC's normal, TM's normal bilaterally, Normal external nose present, Normal nasal mucous membranes and turbinates present, moist oral mucous membranes, oropharynx normal, dentition normal and gingiva normal HEAD & SCALP: normocephalic and atraumatic NOSE: Normal external nose present and Normal nasal mucous membranes and turbinates present EXTERNAL EAR: Yes external ears normal EXTERNAL AUDITORY CANAL: EAC's normal TYMPANIC MEMBRANE: TM's normal bilaterally Eye: COMMON NORMALS: Equal, round and reactive pupils present, EOMs intact bilaterally, conjunctivae normal, no scleral icterus, no papilledema, normal visual alvarez by confrontation and fundi normal bilaterally CONJUNCTIVA: Yes conjunctivae normal PUPIL: Yes Equal, round and reactive pupils present DIRECT OPHTHALMOSCOPY: Yes no papilledema and Yes fundi normal bilaterally Neck/C-Spine: COMMON NORMALS: full ROM, no lymphadenopathy, supple, no meningeal signs, no JVD, Thyroid normal and No carotid bruits THYROID: Thyroid normal Chest: COMMONS NORMALS: normal inspection of the chest and normal palpation of entire chest wall Resp: COMMON NORMALS: normal respiratory effort, No retractions, No use of accessory muscles, clear to auscultation bilaterally and percussion normal AUSCULTATION: clear to auscultation bilaterally PERCUSSION: percussion normal Cardio: COMMON NORMALS: no JVD, S1 normal heart sound present, S2 normal heart sound present, No gallops present (Cardio), No clicks present (Cardio), No murmurs present (Cardio), No rub (Cardio) and Peripheral pulses 2+ throughout RATE: bradycardic HEART SOUNDS: S1 normal heart sound present and S2 normal heart sound present PERIPHERAL PULSES: Peripheral pulses 2+ throughout GI: COMMON NORMALS: Normal to inspection, nondistended, normoactive bowel sounds present, Soft to palpation, non-tender, No hepatosplenomegaly present, no masses and no bruits PALPATION: Yes Soft to palpation and Yes No hepatosplenomegaly present Back/Pelvis: COMMON NORMALS: thoracic and lumbar spine normal to inspection, no thoracic nor lumbar tenderness, thoraco-lumbar ROM normal and straight leg raise negative bilaterally Extremity: COMMON NORMALS: normal to inspection, full ROM, capillary refill normal, no joint enlargement, no clubbing, cyanosis or edema, no calf tenderness and no pedal edema Neuro: SENSORIUM/ORIENTATION: Yes alert, Yes lethargic and Yes somnolent MENINGEAL SIGNS: Yes no meningeal signs Skin: COMMON NORMALS: no rashes or lesions noted, no wounds, no jaundice and no mottling GENERAL SKIN EXAM: no rashes or lesions noted Course Vital Signs: Vital signs: Vital Signs Temperature 97.6 F 08/03/19 11:22 Pulse Rate 55 L 08/03/19 11:22 Respiratory Rate 15 08/03/19 11:22 Blood Pressure 137/70 08/03/19 11:22 Pulse Oximetry 96 08/03/19 11:22 MDM - Chest Pain Lab Data: Labs: Lab Results 08/03/19 08/03/19 08/03/19 Range/Units 11:45 11:45 11:45 WBC 9.2 (4.0-10.0) 10^3/ uL RBC 4.18 (4.1-5.3) 10^6/u L Hgb 13.3 (11.7-16.6) g/dL Hct 40.0 L (42.0-52.0) % MCV 95.7 H (80-94) fL MCH 31.8 (28.0-34.0) pg MCHC 33.3 (30.0-36.0) g/dL RDW 14.0 (12.1-15.1) % Plt Count 233 (130-400) 10^3/c mm MPV 10.4 (7.4-10.4) fL Neut % (Auto) 65.7 % Lymph % (Auto) 17.3 % [place] % (Auto) 13.6 % Eos % (Auto) 2.0 % Baso % (Auto) 0.4 % Neut # (Auto) 6.1 (1.8-7.7) 10^3/u L Lymph # (Auto) 1.6 (0.8-4.8) 10^3/u L [place] # (Auto) 1.3 H (0.2-0.9) 10^3/u L Eos # (Auto) 0.2 (0.0-0.8) 10^3/u L Baso # (Auto) 0.0 (0.0-0.1) 10^3/u L Nucleated RBC % (a uto) 0 % Nucleated RBCs # 0.0 /100WBC Sodium 135 L (136-145) mmol/L Potassium 4.7 (3.5-5.1) mmol/L Chloride 98 (98-107) mmol/L Carbon Dioxide 26 (22-29) mmol/L Anion Gap 15.7 (5-19) BUN 25 H (8-23) mg/dL Creatinine 1.0 (0.7-1.2) mg/dL Glucose 108 (65-115) mg/dL Calculated Osmolal ity 277 L (285-295) mOsm/k g Calcium 8.2 L (8.5-10.5) mg/dL Total Bilirubin 0.6 (0.15-1.2) mg/dL AST 13 (0-40) U/L ALT 12 (0-41) U/L Alkaline Phosphata se 99 (40-130) IU/L Troponin T Baselin e 18 H (0-15) ng/L Troponin T 120 Min [place] (0-15) ng/L Delta Troponin T (0-10) ABS# NT-Pro-B Natriuret Pep 1504 H (0-450) pg/mL Total Protein 6.1 L (6.6-8.7) g/dL Albumin 3.7 (3.5-5.2) g/dL Globulin 2.4 (1.3-4.6) g/dL 08/03/19 Range/Units 13:50 WBC (4.0-10.0) 10^3/ uL RBC (4.1-5.3) 10^6/u L Hgb (11.7-16.6) g/dL Hct (42.0-52.0) % MCV (80-94) fL MCH (28.0-34.0) pg MCHC (30.0-36.0) g/dL RDW (12.1-15.1) % Plt Count (130-400) 10^3/c mm MPV (7.4-10.4) fL Neut % (Auto) % Lymph % (Auto) % [place] % (Auto) % Eos % (Auto) % Baso % (Auto) % Neut # (Auto) (1.8-7.7) 10^3/u L Lymph # (Auto) (0.8-4.8) 10^3/u L [place] # (Auto) (0.2-0.9) 10^3/u L Eos # (Auto) (0.0-0.8) 10^3/u L Baso # (Auto) (0.0-0.1) 10^3/u L Nucleated RBC % (a uto) % Nucleated RBCs # /100WBC Sodium (136-145) mmol/L Potassium (3.5-5.1) mmol/L Chloride (98-107) mmol/L Carbon Dioxide (22-29) mmol/L Anion Gap (5-19) BUN (8-23) mg/dL Creatinine (0.7-1.2) mg/dL Glucose (65-115) mg/dL Calculated Osmolal ity (285-295) mOsm/k g Calcium (8.5-10.5) mg/dL Total Bilirubin (0.15-1.2) mg/dL AST (0-40) U/L ALT (0-41) U/L Alkaline Phosphata se (40-130) IU/L Troponin T Baselin e (0-15) ng/L Troponin T 120 Min [place] 17.18 H (0-15) ng/L Delta Troponin T -0.82 L (0-10) ABS# NT-Pro-B Natriuret Pep (0-450) pg/mL Total Protein (6.6-8.7) g/dL Albumin (3.5-5.2) g/dL Globulin (1.3-4.6) g/dL Discharge Plan Discharge Patient Disposition: Home, Self-Care Clinical Impression: Chest pain Qualifiers: Chest pain type: unspecified Qualified Code(s): R07.9 - Chest pain, unspecified Condition: Stable Prescriptions: No Action potassium chloride 20 mEq/15 mL liquid See Rx Instructions .ROUTE .COMPLEX RF: 0 aspirin [Adult Low Dose Aspirin] 81 mg tablet,delayed release (DR/EC) 81 mg PO DAILY RF: 0 multivitamin Tablet 1 tab PO DAILY RF: 0 docusate sodium 100 mg capsule 100 mg PO BID PRN (Reason: Constipation) RF: 0 trazodone 100 mg tablet 100 mg PO BEDTIME PRN (Reason: Sleep) RF: 0 furosemide 80 mg tablet 40 mg PO BID RF: 0 lisinopril 5 mg Tablet 5 mg PO DAILY Qty: 30 RF: 0 simethicone 80 mg Tablet,Chewable 80 mg PO QID PRN (Reason: Flatulence) Qty: 10 RF: 0 metoprolol tartrate 25 mg Tablet 25 mg PO BID Qty: 60 RF: 0 Pradaxa 150 mg Capsule 150 mg PO BID Qty: 60 RF: 0 carvedilol 25 mg Tablet 12.5 mg PO BID RF: 0 Tylenol 325 mg Tablet 325 - 650 mg PO PRN RF: 0 Tylenol-Codeine #3 300-30 mg Tablet 2 tab PO TID PRN (Reason: Pain) RF: 0 Ultram 50 mg Tablet 50 mg PO QID PRN (Reason: Pain) RF: 0 simvastatin 40 mg Tablet 20 mg PO BEDTIME RF: 0 Flomax 0.4 mg Capsule 0.8 mg PO DAILY RF: 0 Aleve 220 mg Tablet 220 mg PO PRN RF: 0 hydroxyzine HCl 10 mg Tablet 10 mg PO Q6H PRN (Reason: UNKNOWN) RF: 0 Proscar 5 mg Tablet 5 mg PO BEDTIME RF: 0 glipizide 5 mg Tablet 5 mg PO BID RF: 0 Prilosec 10 mg Susp,Delayed Release For Recon 20 mg PO BID RF: 0 Myrbetriq 25 mg Tablet Extended Release 24 Hr 25 mg PO DAILY RF: 0 Discharge Orders: Discharge Order (Routine); Ordered 08/03/19 Ordered By: Porfirio Angela Referrals: Mei Flores, CHARTER BOAT CAPTAIN [Primary Care Provider] - Coding Level of Care Code ED [employer]ial Vault Deliverer And Installer for Chg Fwd Exam Comprehensive
--- NOTE | 2019-08-03 11:36 | XRR_ITS ---
PROCEDURE INFORMATION: Exam: XR Chest, 1 View Exam date and time: 08/03/2019 11:42 AM Age: 84 years old Clinical indication: Left-sided chest pain; Prior surgery; Surgery type: Stents TECHNIQUE: Imaging protocol: XR of the chest Views: 1 view. COMPARISON: CR XR chest 1V portable [id number] 07/24/2019 7:12 PM FINDINGS: Lungs: Low lung volumes seen. Atelectasis is present in the bilateral lower lobes. Compared to prior examination the lower lobes show improved aeration. . The lungs are otherwise clear Pleural space: Unremarkable. No pleural effusion. No pneumothorax. Heart/Mediastinum: Unremarkable. No cardiomegaly. Bones/joints: Unremarkable. XR/XR chest 1V portable [id number] IMPRESSION: 1. Low lung volumes with bilateral lower lobe atelectasis 2. Otherwise No acute findings.
[2019-08-03 11:56] LABS: Basophils % 0.4 %; Eosinophils # 0.2 10^3/uL (0.0-0.8); Hemoglobin 13.3 g/dL (11.7-16.6); Lymphocytes # 1.6 10^3/uL (0.8-4.8); Lymphocytes % 17.3 %; Mean Corpuscular HGB Conc 33.3 g/dL (30.0-36.0); Mean Corpuscular Hemoglobin 31.8 pg (28.0-34.0); Mean Corpuscular Volume 95.7 fL (80-94); Mean Platelet Volume 10.4 fL (7.4-10.4); Monocytes # 1.3 10^3/uL (0.2-0.9); Monocytes % 13.6 %; Neutrophils # 6.1 10^3/uL (1.8-7.7); Neutrophils % 65.7 %; Nucleated Red Blood Cells % 0 %; Platelet Count 233 10^3/cmm (130-400); Red Blood Count 4.18 10^6/uL (4.1-5.3); White Blood Count 9.2 10^3/uL (4.0-10.0)
[2019-08-03 12:13] LABS: Troponin(5th) Baseline 18 ng/L (0-15)
[2019-08-03 12:21] LABS: Alanine Aminotransferase 12 U/L (0-41); Albumin Level 3.7 g/dL (3.5-5.2); Alkaline Phosphatase 99 IU/L (40-130); Anion Gap 15.7 (5-19); Aspartate Amino Transferase 13 U/L (0-40); Blood Urea Nitrogen 25 mg/dL (8-23); Calcium 8.2 mg/dL (8.5-10.5); Carbon Dioxide 26 mmol/L (22-29); Chloride 98 mmol/L (98-107); Globulin 2.4 g/dL (1.3-4.6); Glucose 108 mg/dL (65-115); NT Pro B Type Natriuretic Pept 1504 pg/mL (0-450); Osmolality Calculated 277 mOsm/kg (285-295); Potassium 4.7 mmol/L (3.5-5.1); Sodium 135 mmol/L (136-145); Total Bilirubin 0.6 mg/dL (0.15-1.2); Total Protein 6.1 g/dL (6.6-8.7)
--- NOTE | 2019-08-03 13:37 | ECG_ITS ---
Measurements Intervals [place] Rate: 54 P: [place]: 0 QRS: -82 QRSD: 160 T: 29 QT: 516 QTc: 493 ATRIAL FIBRILLATION WITH SLOW VENTRICULAR RESPONSE INDETERMINATE AXIS RIGHT BUNDLE BRANCH BLOCK [120+ ms QRS DURATION, UPRIGHT V1, 40+ ms S IN I/aVL/V4/V5/V6] LEFT ANTERIOR FASCICULAR BLOCK [QRS AXIS <= -45, QR IN I, RS IN II] Compared to ECG 07/25/2019 01:54:16 Left anterior fascicular block now present Ventricular premature complex(es) no longer present Aberrant conduction of supraventricular beat(s) no longer present Electronically Signed On 08-03-2019 19:07:35 CDT by Tai Tello M.D. [id number]
[2019-08-03 14:09] LABS: Troponin 5 2HR 17.18 ng/L (0-15)
[2019-08-03 14:10] LABS: Troponin 5 2HR Delta -0.82 ABS# (0-10)
[2019-08-03 15:00] VITALS: BP 145/85; PULSE 75; RESP 16; O2SAT 97
== END 2019-08-03 15:01 | disposition home or self-care (01) ==
PROVIDERS: Emergency Provider Family Medicine; PCP Nurse Practitioner
DX: R07.9 Chest pain, unspecified (principal); Z79.82 Long term (current) use of aspirin; Z87.891 Personal history of nicotine dependence; I48.91 Unspecified atrial fibrillation; I50.9 Heart failure, unspecified; Z86.73 Personal history of transient ischemic attack (TIA), and cerebral infarction without residual deficits; E11.9 Type 2 diabetes mellitus without complications
CPT/HCPCS: 12345; 36415; 71045; 80053; 83880; 84484; 85025; 93005; 99282; 99284

== ENCOUNTER 2019-08-22 15:38 | Emergency (ER) | payer OTHER, MEDICARE, SELFPAY ==
[2019-08-22 15:56] VITALS: BP 132/56; PULSE 67; RESP 14; TEMP 36.8; O2SAT 97; BMI 35.8
--- NOTE | 2019-08-22 16:24 | XRR_ITS ---
PROCEDURE INFORMATION: Exam: XR Chest, 1 View Exam date and time: 08/22/2019 4:58 PM Age: 84 years old Clinical indication: Patient HX: Dyspnea/cough TECHNIQUE: Imaging protocol: XR of the chest Views: 1 view. COMPARISON: CR (CHEST, ) 08/03/2019 11:54 AM FINDINGS: Lungs: Unremarkable. No consolidation. Pleural space: Right lower lobe pleural effusion. No pneumothorax. Heart/Mediastinum: Unremarkable. No cardiomegaly. Bones/joints: Unremarkable. XR/XR chest 1V portable [id number] IMPRESSION: Right lower lobe pleural effusion. Otherwise negative examination
--- NOTE | 2019-08-22 16:43 | W.ED.CHESTPA ---
HPI - Chest Pain General: Chief Complaint: Chest Pain Stated Complaint: EDEMA Time Seen by Provider: 08/22/19 16:42 History of Present Illness: HPI narrative: 84-year-old male comes in complaining of chest pain he said his left upper chest pain is actually had over the last couple days seem to be set off by some stress radiates into his left shoulder left side of his neck he had seen Dr. Laurent for it he also swelling in his lower extremities had last had for the last several months he is on Lasix for that. He states he has really noticed anything that makes the chest pain better or worse he has had dyspnea as well with any exertion he was sent over by the nurse practitioner from the [place] because of concern of the blood clot in his legs however he was recently in the hospital within the last month for a week at that time he was found to have a DVT and was started on Eliquis and he continues to take his Eliquis he is not noticed a significant change since then. MD complaint: chest heaviness and chest discomfort Pertinent past history: coronary artery disease and prior HI Onset (ago): day(s) Timing of current episode: constant Prior episodes: Yes Onset: during rest and during exertion Pain location: substernal and left chest Pain radiation: neck, jaw/teeth and left shoulder Severity: moderate Quality: heaviness Relieving factors: nothing Exacerbating factors: nothing Context: other (Recent HI known DVT) Associated symptoms: Reports leg edema; Deny abdominal pain, dyspnea, fever(s), nausea or vomiting Treatment prior to arrival: none Review of Systems Const: Denies: fever(s), chills, body aches, change in appetite, fatigue or malaise ENMT: Denies: throat pain, ear or mastoid pain, nasal discharge or nasal congestion Card: Denies: chest pain, edema, dyspnea on exertion or orthopnea Resp: Denies: dyspnea, productive cough or non-productive cough GI: Denies: abdominal pain, nausea, vomiting, hematemesis, coffee ground emesis, diarrhea, constipation, bloating, hematochezia or melena : Denies: flank pain, dysuria, urinary frequency or urinary urgency Skin/Breast: Denies: rash or pruritus PFS ED PFSH: Medical History Atherosclerosis of [place] arteries of extremity with intermittent claudication Nonobstructive coronary artery disease Atrial fibrillation BPH (benign prostatic hyperplasia) CHF (congestive heart failure) CVA (cerebral vascular accident) 2019 Diabetes mellitus Borderline diabetes Osteoarthritis Right bundle branch block Surgical History S/P eye surgery S/P knee surgery S/P tonsillectomy and adenoidectomy Family History Mother CHF (congestive heart failure) Pneumonia Father CHF (congestive heart failure) Stroke Other Diabetes Hypertension Social History Smoking and tobacco status: never smoked Alcohol intake: never Lives independently: Yes 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, [employer] service History of recent travel: No Physical Exam Const: COMMON NORMALS: average body habitus, patient oriented x3 and alert GENERAL APPEARANCE: cooperative, comfortable, well kempt and well developed NUTRITIONAL APPEARANCE: obese ORIENTATION/CONSCIOUSNESS: Yes awake, Yes oriented to person and Yes oriented to place Eye: COMMON NORMALS: Equal, round and reactive pupils present, EOMs intact bilaterally, conjunctivae normal and no scleral icterus CONJUNCTIVA: Yes conjunctivae normal PUPIL: Yes Equal, round and reactive pupils present Neck/C-Spine: COMMON NORMALS: full ROM, no lymphadenopathy, supple, no meningeal signs and Thyroid normal THYROID: Thyroid normal and asymmetrical Lymph: LYMPHATIC: no lymphadenopathy noted Resp: COMMON NORMALS: normal respiratory effort, No retractions, No use of accessory muscles and clear to auscultation bilaterally AUSCULTATION: clear to auscultation bilaterally Cardio: COMMON NORMALS: regular rate and regular rhythm RATE: regular rate RHYTHM: regular rhythm HEART SOUNDS: no murmurs GI: COMMON NORMALS: Normal to inspection, nondistended, normoactive bowel sounds present, Soft to palpation and No hepatosplenomegaly present PALPATION: Yes Soft to palpation and Yes No hepatosplenomegaly present : COMMON NORMALS: Yes no CVA tenderness BLADDER/KIDNEY EXAM: Yes no CVA tenderness Back/Pelvis: COMMON NORMALS: no CVA tenderness LUMBAR SPINE/LOWER BACK: Yes normal to inspection Extremity: COMMON NORMALS: no clubbing, cyanosis or edema, no calf tenderness and no pedal edema Neuro: COMMON NORMALS: patient oriented x3 SENSORIUM/ORIENTATION: Yes alert, Yes oriented to person and Yes oriented to place MENINGEAL SIGNS: Yes no meningeal signs Psych: APPEARANCE: Yes well kempt Skin: COMMON NORMALS: no rashes or lesions noted and turgor normal GENERAL SKIN EXAM: no rashes or lesions noted and turgor normal Course Vital Signs: Vital signs: Vital Signs Temperature 98.3 F 08/22/19 15:56 Pulse Rate 65 08/22/19 18:40 Respiratory Rate 22 H 08/22/19 18:40 Blood Pressure 129/67 08/22/19 18:40 Pulse Oximetry 95 08/22/19 18:40 MDM - Chest Pain MDM Narrative: Medical decision making narrative: Reviewed previous notes. Patient was recently diagnosed with atrial fibrillation and PE. He is already on Pradaxa there is no changes he is well controlled. He has no worsening of symptoms at this time and appears on his labs to and x-ray to be well controlled despite multiple medical problems. Reviewed this with him he is feeling fine would like to go home I strongly suggest he follow-up with his primary care doctor next week and review as well. If he has any further problems he can return to the emergency room. Lab Data: Labs: Lab Results 08/22/19 08/22/19 08/22/19 Range/Units 17:25 17:25 17:25 WBC 6.4 (4.0-10.0) 10^3/ uL RBC 4.17 (4.1-5.3) 10^6/u L Hgb 12.9 (11.7-16.6) g/dL Hct 40.7 L (42.0-52.0) % MCV 97.6 H (80-94) fL MCH 30.9 (28.0-34.0) pg MCHC 31.7 (30.0-36.0) g/dL RDW 14.3 (12.1-15.1) % Plt Count 173 (130-400) 10^3/c mm MPV 10.6 H (7.4-10.4) fL Neut % (Auto) 58.0 % Lymph % (Auto) 23.7 % [place] % (Auto) 15.0 % Eos % (Auto) 2.3 % Baso % (Auto) 0.5 % Neut # (Auto) 3.7 (1.8-7.7) 10^3/u L Lymph # (Auto) 1.5 (0.8-4.8) 10^3/u L [place] # (Auto) 1.0 H (0.2-0.9) 10^3/u L Eos # (Auto) 0.2 (0.0-0.8) 10^3/u L Baso # (Auto) 0.0 (0.0-0.1) 10^3/u L Nucleated RBC % (a uto) 0 % Nucleated RBCs # 0.0 /100WBC Sodium 137 (136-145) mmol/L Potassium 4.5 (3.5-5.1) mmol/L Chloride 97 L (98-107) mmol/L Carbon Dioxide 30 H (22-29) mmol/L Anion Gap 14.5 (5-19) BUN 27 H (8-23) mg/dL Creatinine 1.0 (0.7-1.2) mg/dL Glucose 146 H (65-115) mg/dL Calculated Osmolal ity 284 L (285-295) mOsm/k g Calcium 8.5 (8.5-10.5) mg/dL Total Bilirubin 0.3 (0.15-1.2) mg/dL AST 15 (0-40) U/L ALT 11 (0-41) U/L Alkaline Phosphata se 100 (40-130) IU/L Troponin T Baselin e 17 H (0-15) ng/L NT-Pro-B Natriuret Pep (0-450) pg/mL Total Protein 5.6 L (6.6-8.7) g/dL Albumin 3.8 (3.5-5.2) g/dL Globulin 1.8 (1.3-4.6) g/dL 08/22/19 Range/Units 17:25 WBC (4.0-10.0) 10^3/ uL RBC (4.1-5.3) 10^6/u L Hgb (11.7-16.6) g/dL Hct (42.0-52.0) % MCV (80-94) fL MCH (28.0-34.0) pg MCHC (30.0-36.0) g/dL RDW (12.1-15.1) % Plt Count (130-400) 10^3/c mm MPV (7.4-10.4) fL Neut % (Auto) % Lymph % (Auto) % [place] % (Auto) % Eos % (Auto) % Baso % (Auto) % Neut # (Auto) (1.8-7.7) 10^3/u L Lymph # (Auto) (0.8-4.8) 10^3/u L [place] # (Auto) (0.2-0.9) 10^3/u L Eos # (Auto) (0.0-0.8) 10^3/u L Baso # (Auto) (0.0-0.1) 10^3/u L Nucleated RBC % (a uto) % Nucleated RBCs # /100WBC Sodium (136-145) mmol/L Potassium (3.5-5.1) mmol/L Chloride (98-107) mmol/L Carbon Dioxide (22-29) mmol/L Anion Gap (5-19) BUN (8-23) mg/dL Creatinine (0.7-1.2) mg/dL Glucose (65-115) mg/dL Calculated Osmolal ity (285-295) mOsm/k g Calcium (8.5-10.5) mg/dL Total Bilirubin (0.15-1.2) mg/dL AST (0-40) U/L ALT (0-41) U/L Alkaline Phosphata se (40-130) IU/L Troponin T Baselin e (0-15) ng/L NT-Pro-B Natriuret Pep 1386 H (0-450) pg/mL Total Protein (6.6-8.7) g/dL Albumin (3.5-5.2) g/dL Globulin (1.3-4.6) g/dL Discharge Plan Discharge Patient Disposition: Home, Self-Care Clinical Impression: CHF (congestive heart failure), Atrial fibrillation, Acute pulmonary embolism Condition: Stable Prescriptions: No Action furosemide 80 mg tablet 80 mg PO DIRECTED RF: 0 metolazone 2.5 mg tablet 2.5 mg PO DAILY Qty: 7 RF: 0 potassium chloride 20 mEq/15 mL liquid See Rx Instructions .ROUTE .COMPLEX RF: 0 aspirin [Adult Low Dose Aspirin] 81 mg tablet,delayed release (DR/EC) 81 mg PO DAILY RF: 0 multivitamin Tablet 1 tab PO DAILY RF: 0 docusate sodium 100 mg capsule 100 mg PO BID PRN (Reason: Constipation) RF: 0 trazodone 100 mg tablet 100 mg PO BEDTIME PRN (Reason: Sleep) RF: 0 lisinopril 5 mg Tablet 5 mg PO DAILY Qty: 30 RF: 0 simethicone 80 mg Tablet,Chewable 80 mg PO QID PRN (Reason: Flatulence) Qty: 10 RF: 0 metoprolol tartrate 25 mg Tablet 25 mg PO BID Qty: 60 RF: 0 Pradaxa 150 mg Capsule 150 mg PO BID Qty: 60 RF: 0 Tylenol 325 mg Tablet 325 - 650 mg PO PRN RF: 0 Tylenol-Codeine #3 300-30 mg Tablet 2 tab PO TID PRN (Reason: Pain) RF: 0 Ultram 50 mg Tablet 50 mg PO QID PRN (Reason: Pain) RF: 0 simvastatin 40 mg Tablet 20 mg PO BEDTIME RF: 0 Flomax 0.4 mg Capsule 0.8 mg PO DAILY RF: 0 Proscar 5 mg Tablet 5 mg PO BEDTIME RF: 0 glipizide 5 mg Tablet 5 mg PO BID RF: 0 Prilosec 10 mg Susp,Delayed Release For Recon 20 mg PO BID RF: 0 hydroxyzine HCl 10 mg tablet 10 mg PO Q6H PRN (Reason: UNKNOWN) RF: 0 Myrbetriq 25 mg tablet extended release 24 hr 25 mg PO DAILY RF: 0 Aleve 220 mg tablet 220 mg PO PRN RF: 0 Discharge Orders: Discharge Order (Routine); Ordered 08/22/19 Ordered By: Charan Redmond Referrals: Mei Flores, FRUCTOSE LOADER [Primary Care Provider] - Discharge Diet: Usual diet Discharge Activity: Resume usual activity Activity Restrictions/Additional Instructions: No change in medications. Continue all your current medications and follow-up with Dr. Tello as needed. Discharge Date/Time: 08/22/19 18:40 Coding Level of Care Code ED Compounder Flavorings for Chg Fwd Exam Comprehensive
[2019-08-22 17:06] VITALS: BP 170/76; PULSE 70; RESP 16; O2SAT 98
[2019-08-22 17:39] LABS: Basophils % 0.5 %; Eosinophils # 0.2 10^3/uL (0.0-0.8); Eosinophils % 2.3 %; Hematocrit 40.7 % (42.0-52.0); Hemoglobin 12.9 g/dL (11.7-16.6); Lymphocytes # 1.5 10^3/uL (0.8-4.8); Lymphocytes % 23.7 %; Mean Corpuscular HGB Conc 31.7 g/dL (30.0-36.0); Mean Corpuscular Hemoglobin 30.9 pg (28.0-34.0); Mean Corpuscular Volume 97.6 fL (80-94); Mean Platelet Volume 10.6 fL (7.4-10.4); Neutrophils # 3.7 10^3/uL (1.8-7.7); Nucleated Red Blood Cells % 0 %; Platelet Count 173 10^3/cmm (130-400); Red Blood Count 4.17 10^6/uL (4.1-5.3); Red Cell Distribution Width 14.3 % (12.1-15.1); White Blood Count 6.4 10^3/uL (4.0-10.0)
[2019-08-22 17:57] LABS: Troponin(5th) Baseline 17 ng/L (0-15)
[2019-08-22 18:23] LABS: Alanine Aminotransferase 11 U/L (0-41); Albumin Level 3.8 g/dL (3.5-5.2); Alkaline Phosphatase 100 IU/L (40-130); Anion Gap 14.5 (5-19); Aspartate Amino Transferase 15 U/L (0-40); Blood Urea Nitrogen 27 mg/dL (8-23); Calcium 8.5 mg/dL (8.5-10.5); Carbon Dioxide 30 mmol/L (22-29); Chloride 97 mmol/L (98-107); Globulin 1.8 g/dL (1.3-4.6); Glucose 146 mg/dL (65-115); Osmolality Calculated 284 mOsm/kg (285-295); Potassium 4.5 mmol/L (3.5-5.1); Sodium 137 mmol/L (136-145); Total Bilirubin 0.3 mg/dL (0.15-1.2); Total Protein 5.6 g/dL (6.6-8.7)
[2019-08-22 18:31] LABS: NT Pro B Type Natriuretic Pept 1386 pg/mL (0-450)
[2019-08-22 18:40] VITALS: BP 129/67; PULSE 65; RESP 22; O2SAT 95
== END 2019-08-22 18:40 | disposition home or self-care (01) ==
PROVIDERS: Emergency Provider Family Medicine; PCP Nurse Practitioner
DX: I50.9 Heart failure, unspecified (principal); I48.91 Unspecified atrial fibrillation; I26.99 Other pulmonary embolism without acute cor pulmonale; Z79.82 Long term (current) use of aspirin; Z86.73 Personal history of transient ischemic attack (TIA), and cerebral infarction without residual deficits; E11.9 Type 2 diabetes mellitus without complications
CPT/HCPCS: 12345; 36415; 71045; 80053; 83880; 84484; 85025; 99281; 99283

== ENCOUNTER 2019-12-05 12:09 | Inpatient (IN) | payer OTHER, MEDICARE, SELFPAY ==
[2019-12-05] VITALS (14 sets, daily range): BP systolic 124–155; BP diastolic 65–90; PULSE 58–101; RESP 13–27; TEMP 36.7; O2SAT 93–98; BMI 30.8
--- NOTE | 2019-12-05 12:21 | XR_ITS ---
WS: [id number] PORTABLE CHEST HISTORY: short of breath, CP COMPARISON: 08/22/2019 Increasing RIGHT hilar consolidation and RIGHT lower lobe atelectasis and/or pneumonia. Small amount of atelectasis at the LEFT lung base. Small bilateral pleural effusions. Cardiac size: Mildly enlarged cardiac silhouette. Mediastinum/Aorta: Mild atherosclerosis aorta. No osseous abnormality seen. XR/XR chest 1V portable [id number] IMPRESSION: 1. Increasing RIGHT hilar consolidation and atelectasis at the RIGHT lung base . Consider follow-up chest CT with IV contrast for further evaluation and possi ble neoplasm or adenopathy. 2. Small bilateral pleural effusions and LEFT basilar atelectasis. 3. Cardiomegaly.
--- NOTE | 2019-12-05 12:21 | ECG_ITS ---
[facility] Test Date: 2019-12-05 Pat Name: Rober Smiley Department: Room: Gender: Male Lung Splitter: : 1935 Requested By: Kamille Garay Order Number: [id number] Wero MD: Andi Moya M.D. Measurements Intervals [place] Rate: 75 P: [place]: -1 QRS: -70 QRSD: 169 T: 31 QT: 440 QTc: 492 Interpretive Statements ATRIAL FIBRILLATION WITH ABERRANT CONDUCTION OR VENTRICULAR PREMATURE COMPLEXES INDETERMINATE AXIS RIGHT BUNDLE BRANCH BLOCK [120+ ms QRS DURATION, UPRIGHT V1, 40+ ms S IN I/aVL/V4/V5/V6] LEFT ANTERIOR FASCICULAR BLOCK [QRS AXIS <= -45, QR IN I, RS IN II] Compared to ECG 08/03/2019 14:00:26 Ventricular premature complex(es) now present Aberrant conduction of supraventricular beat(s) now present Electronically Signed On 12-05-2019 18:47:33 CDT by Andi Moya M.D. [email or web address]
[2019-12-05 12:37] LABS: Basophils % 0.2 %; Eosinophils # 0.1 10^3/uL (0.0-0.8); Eosinophils % 1.1 %; Hematocrit 37.6 % (42.0-52.0); Hemoglobin 13.2 g/dL (11.7-16.6); Lymphocytes # 1.8 10^3/uL (0.8-4.8); Lymphocytes % 27.5 %; Mean Corpuscular HGB Conc 35.1 g/dL (30.0-36.0); Mean Corpuscular Hemoglobin 34.6 pg (28.0-34.0); Mean Corpuscular Volume 98.4 fL (80-94); Monocytes # 0.9 10^3/uL (0.2-0.9); Monocytes % 14.6 %; Neutrophils # 3.57 10^3/uL (1.8-7.7); Neutrophils % 56.1 %; Nucleated Red Blood Cells % 0 %; Platelet Count 173 10^3/cmm (130-400); Red Blood Count 3.82 10^6/uL (4.1-5.3); Red Cell Distribution Width 13.4 % (12.1-15.1); White Blood Count 6.4 10^3/uL (4.0-10.0)
[2019-12-05] MEDS: acetaminophen 500 mg Tablet 1000 MG PO (12:50)
[2019-12-05] MEDS: nitroglycerin 1 gm/inch oint Pkt 0.5 INCH TOPICAL (12:50)
[2019-12-05 12:58] LABS: INR 0.98 (0.8-1.2)
[2019-12-05 12:59] LABS: Ketone (Acetest) Serum Negative (Negative)
[2019-12-05 13:01] LABS: D Dimer 0.38 ug/mIFEU (0-0.59)
[2019-12-05 13:05] LABS: Troponin(5th) Baseline 15 ng/L (0-15)
[2019-12-05 13:14] LABS: Alanine Aminotransferase 7 U/L (0-41); Albumin Level 3.7 g/dL (3.5-5.2); Alkaline Phosphatase 90 IU/L (40-130); Anion Gap 14.2 (5-19); Aspartate Amino Transferase 11 U/L (0-40); Blood Urea Nitrogen 19 mg/dL (8-23); Carbon Dioxide 25 mmol/L (22-29); Chloride 99 mmol/L (98-107); Globulin 2.5 g/dL (1.3-4.6); Glucose 120 mg/dL (65-115); Lipase 19 U/L (13-60); Magnesium 2.2 mg/dL (1.7-2.3); NT Pro B Type Natriuretic Pept 1216 pg/mL (0-450); Osmolality Calculated 281 mOsm/kg (285-295); Potassium 4.2 mmol/L (3.5-5.1); Sodium 134 mmol/L (136-145); Total Bilirubin 0.7 mg/dL (0.15-1.2); Total Protein 6.2 g/dL (6.6-8.7)
[2019-12-05 13:16] LABS: Add Urine Microscopic? NO
[2019-12-05 13:17] LABS: Lactic Sepsis W/Reflex 0.7 mmol/L (0.5-2.2)
[2019-12-05 13:24] LABS: Bilirubin Urine Neg (Negative); Blood Urine Neg (Negative); Glucose Urine UA Norm (Normal); Ketones Urine Negative (Negative); Leukocyte Esterase Urine Negative (Negative); Nitrate Urine Negative (Negative); Protein Urine Neg (Negative); Urine Appearance Clear (CLEAR); Urine Color Yellow (Yellow); Urobilinogen Urine Neg (Negative); pH Urine 7 (5-7)
[2019-12-05 13:39] LABS: Procalcitonin 0.07 ng/mL (0-0.5)
--- NOTE | 2019-12-05 14:17 | CT_ITS ---
WS: [id number] CTA scan of the chest with IV contrast. Additional two-dimensional coronal and sagittal reconstructio n and MIP images was performed. 12/05/2019 Clinical Data: SOB, abnormal CXR Comparison: None. DLP: 625.[address] scans at [facility] use at least one of these dose optimization techniques: automat ed exposure control; mA and/or kV adjustment per patient size (includes targeted exams where dose is matched to clinical indication); or iterative reconstruction. Findings: The central pulmonary arteries and peripheral pulmonary arteries fill normally with no evidence of in termittent luminal filling defects. No pulmonary embolic disease is noted. There is a moderate right pleural effusion, right basilar atelectasis and minimal basilar atelectasis on the left. No pneumonia is seen. The heart size is enlarged with no pericardial effusion. The pulm onary artery is enlarged to 3.36 cm. The thoracic aorta demonstrates minimal calcification in the wal l but no aneurysm.. There is no axillary or significant mediastinal adenopathy. The thyroid gland teodoro ws normal enhancement. The trachea bifurcates into the bronchi. No pneumonia or pneumothorax is seen. The upper abdomen shows no abnormalities. The visualized liver, spleen, pancreas, gallbladder, adrena l glands and superior poles of the kidneys are not remarkable. The thoracic vertebral bodies show osteoarthritis. CT/CT angio chest PE protcl [id number] Impression: 1. Negative for pulmonary embolic disease. 2. Cardiomegaly, right lower lobe atelectasis and minimal left basilar atelecta sis. 3. Right pleural effusion
[2019-12-05 14:19] LABS: Troponin 5 2HR 13.12 ng/L (0-15)
[2019-12-05 14:20] LABS: Troponin 5 2HR Delta -1.88 ABS# (0-10)
--- NOTE | 2019-12-05 14:21 | ECG_ITS ---
[facility] Test Date: 2019-12-05 Pat Name: Rober Smiley Department: Room: Gender: Male Product Development Consultant: : 1935 Requested By: Kamille Garay Order Number: [id number] Wero MD: Andi Moya M.D. Measurements Intervals [place] Rate: 63 P: GA: -1 QRS: -76 QRSD: 175 T: 35 QT: 478 QTc: 490 Interpretive Statements ATRIAL FIBRILLATION WITH ABERRANT CONDUCTION OR VENTRICULAR PREMATURE COMPLEXES INDETERMINATE AXIS RIGHT BUNDLE BRANCH BLOCK [120+ ms QRS DURATION, UPRIGHT V1, 40+ ms S IN I/aVL/V4/V5/V6] LEFT ANTERIOR FASCICULAR BLOCK [QRS AXIS <= -45, QR IN I, RS IN II] Compared to ECG 12/05/2019 12:43:37 No significant changes Electronically Signed On 12-05-2019 19:17:00 CDT by Andi Moya M.D. [id number]
[2019-12-05 14:49] LABS: SARS Covid-2 Antigen Positive (Negative)
[2019-12-05] MEDS: iohexol 350 mg/mL 100 mL Btl IV (15:36)
[2019-12-05] MEDS: dexamethasone 4 mg/mL INJ 6 MG IVP (18:11)
[2019-12-05] MEDS: enoxaparin 100 mg/mL Syringe SUBCUT (18:11)
--- NOTE | 2019-12-05 18:21 | ECG_ITS ---
[facility] Test Date: 2019-12-05 Pat Name: Rober Smiley Department: Room: Gender: Male Central Supply Assistant: : 1935 Requested By: Kamille Garay Order Number: [id number] Wero MD: Andi Moya M.D. Measurements Intervals [place] Rate: 75 P: ME: -1 QRS: 257 QRSD: 160 T: 39 QT: 439 QTc: 492 Interpretive Statements ATRIAL FIBRILLATION WITH ABERRANT CONDUCTION OR VENTRICULAR PREMATURE COMPLEXES INDETERMINATE AXIS RIGHT BUNDLE BRANCH BLOCK [120+ ms QRS DURATION, UPRIGHT V1, 40+ ms S IN I/aVL/V4/V5/V6] Compared to ECG 12/05/2019 14:20:30 Left anterior fascicular block no longer present Electronically Signed On 12-05-2019 18:55:21 CDT by Andi Moya M.D. [id number]
--- NOTE | 2019-12-05 18:27 | W.ED.AMS ---
HPI - Altered Mental Status General: Chief Complaint: Altered Mental Status Stated Complaint: LETHARGIC Time Seen by Provider: 12/05/19 12:12 History of Present Illness: HPI narrative: This patient is an 84-year-old male who is brought in today by family. They are concerned about altered mental status. He has been confused and overly sedated for the past couple of days. He has had some chest pain and some shortness of breath. He has had no known exposure to COVID. He does have a history of cardiac disease and hypertension. MD complaint: altered mental status and decreased responsiveness Onset (ago): day(s) (2) Timing confirmed by: family member Severity: moderate Consistency of symptoms: Waxing and Waning Review of Systems General: Reports: ROS unobtainable due to mental status PFSH ED PFSH: Medical History Atherosclerosis of [place] arteries of extremity with intermittent claudication Nonobstructive coronary artery disease Atrial fibrillation -telemetry monitoring -continue AC with pradaxa -continue metoprolol BPH (benign prostatic hyperplasia) CHF (congestive heart failure) -Echo (06/2019): EF=25-30%, G3DD, severe global hypokinesis, mild pulmonary HTN, mild MR, mild AR, mild TR -f/u with Dr. 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, [email or web address]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 History of recent travel: No Physical Exam Const: COMMON NORMALS: no acute distress and no limitations GENERAL APPEARANCE: cooperative and comfortable HENMT: HEAD & SCALP: normal to inspection FACE & SINUS: normal facial exam Eye: GENERAL EYE: appearance normal, both eyes and all related structures Neck/C-Spine: COMMON NORMALS: supple, no meningeal signs and no JVD Chest: COMMONS NORMALS: normal inspection of the chest Resp: COMMON NORMALS: normal respiratory effort, No use of accessory muscles and clear to auscultation bilaterally AUSCULTATION: clear to auscultation bilaterally Cardio: COMMON NORMALS: no JVD, regular rate, regular rhythm and No murmurs present (Cardio) RATE: regular rate RHYTHM: regular rhythm GI: COMMON NORMALS: Normal to inspection, nondistended, normoactive bowel sounds present, Soft to palpation and non-tender INSPECTION: Yes normal to inspection AUSCULTATION: Yes normoactive bowel sounds PALPATION: Yes Soft to palpation Back/Pelvis: COMMON NORMALS: thoracic and lumbar spine normal to inspection Extremity: COMMON NORMALS: normal to inspection Neuro: COMMON NORMALS: moves all extremities, no focal motor deficits and no sensory deficits noted MENINGEAL SIGNS: Yes no meningeal signs CRANIAL NERVES: Yes CN normal except as noted Psych: COMMON NORMALS: mental status grossly normal, cooperative and normal affect Skin: COMMON NORMALS: no rashes or lesions noted and turgor normal GENERAL SKIN EXAM: no rashes or lesions noted and turgor normal Course ED course: Patient with decreased mental status. He was able to give me some very simple answers. His oxygen saturation was low and he required supplemental oxygen. The COVID test was done and turned out positive. He will be admitted to the viral ICU for further treatment due to his oxygen requirement and concern for his change in mental status. Vital Signs: Vital signs: Vital Signs Temperature 97.1 F L 12/07/19 11:00 Pulse Rate 90 12/07/19 11:00 Respiratory Rate 18 12/07/19 11:00 Blood Pressure 162/68 12/07/19 11:00 Pulse Oximetry 97 12/07/19 11:00 MDM - Altered Mental Status Lab Data: Labs: Lab Results 12/05/19 12/05/19 12/05/19 Range/Units 11:23 11:23 11:23 WBC 6.4 (4.0-10.0) 10^3/ uL RBC 3.82 L (4.1-5.3) 10^6/u L Hgb 13.2 (11.7-16.6) g/dL Hct 37.6 L (42.0-52.0) % MCV 98.4 H (80-94) fL MCH 34.6 H (28.0-34.0) pg MCHC 35.1 (30.0-36.0) g/dL RDW 13.4 (12.1-15.1) % Plt Count 173 (130-400) 10^3/c mm MPV 10.0 (7.4-10.4) fL Neut % (Auto) 56.1 % Lymph % (Auto) 27.5 % [place] % (Auto) 14.6 % Eos % (Auto) 1.1 % Baso % (Auto) 0.2 % Neut # (Auto) 3.57 (1.8-7.7) 10^3/u L Lymph # (Auto) 1.8 (0.8-4.8) 10^3/u L [place] # (Auto) 0.9 (0.2-0.9) 10^3/u L Eos # (Auto) 0.1 (0.0-0.8) 10^3/u L Baso # (Auto) 0.0 (0.0-0.1) 10^3/u L Nucleated RBC % (a uto) 0 % Nucleated RBCs # 0.0 /100WBC PT 13.30 (12.1-14.9) SECO NDS INR 0.98 (0.8-1.2) D-Dimer 0.38 (0-0.59) ug/mIFE U Sodium (136-145) mmol/L Potassium (3.5-5.1) mmol/L Chloride (98-107) mmol/L Carbon Dioxide (22-29) mmol/L Anion Gap (5-19) BUN (8-23) mg/dL Creatinine (0.7-1.2) mg/dL GFR Calculation Glucose (65-115) mg/dL Calculated Osmolal ity (285-295) mOsm/k g Lactic Acid (0.5-2.2) mmol/L Calcium (8.5-10.5) mg/dL Magnesium (1.7-2.3) mg/dL Total Bilirubin (0.15-1.2) mg/dL AST (0-40) U/L ALT (0-41) U/L Alkaline Phosphata se (40-130) IU/L Troponin T Baselin e 15 (0-15) ng/L Troponin T 120 Min [place] (0-15) ng/L Delta Troponin T (0-10) ABS# NT-Pro-B Natriuret Pep (0-450) pg/mL Total Protein (6.6-8.7) g/dL Albumin (3.5-5.2) g/dL Globulin (1.3-4.6) g/dL Lipase (13-60) U/L Procalcitonin (0-0.5) ng/mL Urine Color (Yellow) Urine Appearance (CLEAR) Urine pH (5-7) Ur Specific Gravit y (1.005-1.030) Urine Protein (Negative) Urine Glucose (UA) (Normal) Urine Ketones (Negative) Urine Blood (Negative) Urine Nitrate (Negative) Urine Bilirubin (Negative) Urine Urobilinogen (Negative) mg/dL Ur Leukocyte Geetha ase (Negative) Serum Ketones (Negative) SARS-CoV-2 Ag (Rap id) (Negative) 12/05/19 12/05/19 12/05/19 Range/Units 11:23 12:42 12:53 WBC (4.0-10.0) 10^3/ uL RBC (4.1-5.3) 10^6/u L Hgb (11.7-16.6) g/dL Hct (42.0-52.0) % MCV (80-94) fL MCH (28.0-34.0) pg MCHC (30.0-36.0) g/dL RDW (12.1-15.1) % Plt Count (130-400) 10^3/c mm MPV (7.4-10.4) fL Neut % (Auto) % Lymph % (Auto) % [place] % (Auto) % Eos % (Auto) % Baso % (Auto) % Neut # (Auto) (1.8-7.7) 10^3/u L Lymph # (Auto) (0.8-4.8) 10^3/u L [place] # (Auto) (0.2-0.9) 10^3/u L Eos # (Auto) (0.0-0.8) 10^3/u L Baso # (Auto) (0.0-0.1) 10^3/u L Nucleated RBC % (a uto) % Nucleated RBCs # /100WBC PT (12.1-14.9) SECO NDS INR (0.8-1.2) D-Dimer (0-0.59) ug/mIFE U Sodium 134 L (136-145) mmol/L Potassium 4.2 (3.5-5.1) mmol/L Chloride 99 (98-107) mmol/L Carbon Dioxide 25 (22-29) mmol/L Anion Gap 14.2 (5-19) BUN 19 (8-23) mg/dL Creatinine 0.9 (0.7-1.2) mg/dL GFR Calculation Not Reportable Glucose 120 H (65-115) mg/dL Calculated Osmolal ity 281 L (285-295) mOsm/k g Lactic Acid 0.7 (0.5-2.2) mmol/L Calcium 9.0 (8.5-10.5) mg/dL Magnesium 2.2 (1.7-2.3) mg/dL Total Bilirubin 0.7 (0.15-1.2) mg/dL AST 11 (0-40) U/L ALT 7 (0-41) U/L Alkaline Phosphata se 90 (40-130) IU/L Troponin T Baselin e (0-15) ng/L Troponin T 120 Min [place] (0-15) ng/L Delta Troponin T (0-10) ABS# NT-Pro-B Natriuret Pep 1216 H (0-450) pg/mL Total Protein 6.2 L (6.6-8.7) g/dL Albumin 3.7 (3.5-5.2) g/dL Globulin 2.5 (1.3-4.6) g/dL Lipase 19 (13-60) U/L Procalcitonin 0.07 (0-0.5) ng/mL Urine Color Yellow (Yellow) Urine Appearance Clear (CLEAR) Urine pH 7 (5-7) Ur Specific Gravit y 1.010 (1.005-1.030) Urine Protein Neg (Negative) Urine Glucose (UA) Norm (Normal) Urine Ketones Negative (Negative) Urine Blood Neg (Negative) Urine Nitrate Negative (Negative) Urine Bilirubin Neg (Negative) Urine Urobilinogen Neg (Negative) mg/dL Ur Leukocyte Geetha ase Negative (Negative) Serum Ketones Negative (Negative) SARS-CoV-2 Ag (Rap id) (Negative) 12/05/19 12/05/19 Range/Units 13:37 14:06 WBC (4.0-10.0) 10^3/ uL RBC (4.1-5.3) 10^6/u L Hgb (11.7-16.6) g/dL Hct (42.0-52.0) % MCV (80-94) fL MCH (28.0-34.0) pg MCHC (30.0-36.0) g/dL RDW (12.1-15.1) % Plt Count (130-400) 10^3/c mm MPV (7.4-10.4) fL Neut % (Auto) % Lymph % (Auto) % [place] % (Auto) % Eos % (Auto) % Baso % (Auto) % Neut # (Auto) (1.8-7.7) 10^3/u L Lymph # (Auto) (0.8-4.8) 10^3/u L [place] # (Auto) (0.2-0.9) 10^3/u L Eos # (Auto) (0.0-0.8) 10^3/u L Baso # (Auto) (0.0-0.1) 10^3/u L Nucleated RBC % (a uto) % Nucleated RBCs # /100WBC PT (12.1-14.9) SECO NDS INR (0.8-1.2) D-Dimer (0-0.59) ug/mIFE U Sodium (136-145) mmol/L Potassium (3.5-5.1) mmol/L Chloride (98-107) mmol/L Carbon Dioxide (22-29) mmol/L Anion Gap (5-19) BUN (8-23) mg/dL Creatinine (0.7-1.2) mg/dL GFR Calculation Glucose (65-115) mg/dL Calculated Osmolal ity (285-295) mOsm/k g Lactic Acid (0.5-2.2) mmol/L Calcium (8.5-10.5) mg/dL Magnesium (1.7-2.3) mg/dL Total Bilirubin (0.15-1.2) mg/dL AST (0-40) U/L ALT (0-41) U/L Alkaline Phosphata se (40-130) IU/L Troponin T Baselin e (0-15) ng/L Troponin T 120 Min [place] 13.12 (0-15) ng/L Delta Troponin T -1.88 L (0-10) ABS# NT-Pro-B Natriuret Pep (0-450) pg/mL Total Protein (6.6-8.7) g/dL Albumin (3.5-5.2) g/dL Globulin (1.3-4.6) g/dL Lipase (13-60) U/L Procalcitonin (0-0.5) ng/mL Urine Color (Yellow) Urine Appearance (CLEAR) Urine pH (5-7) Ur Specific Gravit y (1.005-1.030) Urine Protein (Negative) Urine Glucose (UA) (Normal) Urine Ketones (Negative) Urine Blood (Negative) Urine Nitrate (Negative) Urine Bilirubin (Negative) Urine Urobilinogen (Negative) mg/dL Ur Leukocyte Geetha ase (Negative) Serum Ketones (Negative) SARS-CoV-2 Ag (Rap id) Positive H (Negative) Discharge Plan Discharge Patient Disposition: Admitted As Inpatient Admit Provider: [place] Condition: Stable Referrals: Mei Flores FNP [Primary Care Provider] - 4-7 days (Post hospital discharge follow up. Unable to make appointment due to it being a weekend.) Discharge Diet: Cardiac and Diabetic Discharge Activity: Increase activity as tolerated Patient Instructions: Prednisone (By mouth), Zinc Sulfate (By mouth), Azithromycin (By mouth), Ascorbic Acid (Vitamin C) (By mouth), Fluticasone/Salmeterol (By breathing), Heart Healthy Diet, Basic Carbohydrate Counting (DC) Additional Instructions: -Please continue self isolation precautions, frequent handwashing, social distancing and mask wearing. -Please continue to monitor your symptoms and if noted worsening, fever, low oxygen levels, inability to eat or drink; please seek medical attention immediately Discharge Date/Time: 12/05/19 19:23 Coding Level of Care Code ED [place] Inspector for Antoinette Stovall
--- NOTE | 2019-12-05 21:43 | P.HP_ITS ---
Providers/Chief Complaint Admitting Physician: Yuli River MD Primary Care Provider: WILFREDO Brandt Chief Complaint: LETHARGIC History of Present Illness Rober Smiley is a 84 year old male with PMHx noted below presents accompanied by family secondary to noted generalized weakness, confusion earlier this morning, complaints of chest pain, shortness of breath and productive cough for at least 2 days. He lives alone and family checks on him as needed. Due to the COVID-19 pandemic he has been trying to self isolate at home as much as possible. He is able to provide his own history and additional information is obtained from review of medical record. He is currently on 2 L nasal cannula and has just been found to be positive for COVID-19 via rapid testing. He is already on isolation precautions in the ER. He relays having had gradually worsening symptoms particularly over the past 1 to 2 days and seems especially bothered by productive cough with yellow sputum production and shortness of breath. He has had some substernal chest discomfort which is not new to him and has previously been evaluated including during his last admission in the hospital during which time he had a nuclear stress test that was negative. He follows up with Dr. Tello. He is unsure where he may have been exposed to the virus. So far he has already received a dose of dexamethasone and a loading dose of remdesevir. CBC and chemistry are within normal limits, BNP is 1216, urinalysis is negative, Chest x-ray was noted to have increasing right hilar consolidation and atele ctasis at the right lung base and small bilateral pleural effusions, CTA is reported as right pleural effusion, right lower lobe atelectasis. Due to need for supplemental oxygen support, advanced age and risk of further deterioration he will be admitted to the viral ICU for continued antiviral treatment and close monitoring of his respiratory status. I attempted to reach his daughter but unfortunately she has already left the waiting area. Review of Systems Const: Reports: fatigue; Denies: fever(s) or chills Eyes: Denies: change in vision ENMT: Denies: odynophagia Card: Reports: chest pain, swelling of feet/ankles and dyspnea on exertion; Denies: lightheadedness Resp: Reports: dyspnea and productive cough (yellowish sputum) GI: Denies: abdominal pain, nausea, vomiting, hematemesis or hematochezia : Denies: dysuria or hematuria Musc: Denies: back pain Skin/Breast: Denies: rash Neuro: Reports: weakness in extremities and confusion; Denies: numbness in extremities or frequent falls Psych: Denies: anxiety Medications/Allergies Home Medications Medication Instructions Recorded Confirmed Last Taken Type aspirin 81 mg tablet,delayed 81 mg PO DAILY 05/05/19 12/05/19 12/04/19 History release docusate sodium 100 mg capsule 100 mg PO BID PRN 05/05/19 12/05/19 12/04/19 History multivitamin 1 tab PO DAILY 05/05/19 12/05/19 12/04/19 History potassium chloride 20 mEq/15 mL See Rx Instructions .ROUTE .COMPLEX 05/05/19 12/05/19 12/04/19 History oral liquid trazodone 100 mg tablet 100 mg PO BEDTIME PRN 05/05/19 12/05/19 12/04/19 History dabigatran etexilate [Pradaxa] 150 mg PO BID #60 cap 07/29/19 12/05/19 12/04/19 Rx lisinopril 5 mg PO DAILY #30 tab 07/29/19 12/05/19 12/04/19 Rx metoprolol tartrate 25 mg PO BID #60 tab 07/29/19 12/05/19 12/04/19 Rx simethicone 80 mg PO QID PRN #10 tab 07/29/19 12/05/19 08/03/19 Rx acetaminophen [Tylenol] 325 - 650 mg PO PRN PRN 08/03/19 12/05/19 Unknown History finasteride [Proscar] 5 mg PO BEDTIME 08/03/19 12/05/19 12/04/19 History glipizide 5 mg PO BID 08/03/19 12/05/19 12/04/19 History omeprazole magnesium [Prilosec] 40 mg PO BEDTIME 08/03/19 12/05/19 12/04/19 History simvastatin 20 mg PO BEDTIME 08/03/19 12/05/19 12/04/19 History tamsulosin [Flomax] 0.8 mg PO DAILY 08/03/19 12/05/19 12/04/19 History hydroxyzine HCl 10 mg tablet 10 mg PO Q6H PRN 08/12/19 12/05/1912/03/20 History mirabegron 25 mg tablet,extended 25 mg PO DAILY 08/12/19 12/05/19 12/04/19 History release 24 hr furosemide 80 mg tablet 80 mg PO DIRECTED tab 08/20/19 12/05/19 12/04/19 History naproxen sodium 220 mg tablet 220 mg PO PRN PRN 08/20/19 12/05/19 Unknown History metolazone 2.5 mg tablet 2.5 mg PO DAILY #7 tab 08/27/19 12/05/19 12/04/19 Rx albuterol sulfate 2 puff INHALATION Q6H PRN 12/05/19 12/05/19 Unknown History gabapentin 1,200 mg PO BEDTIME 12/05/19 12/05/19 12/04/19 History ropinirole 0.25 mg PO BID 12/05/19 12/05/19 12/04/19 History tramadol 50 mg PO QID PRN 12/05/19 12/05/19 Unknown History Allergies Allergy/AdvReac Type Severity Reaction Status Date / Time digoxin Allergy Unknown ALGY-Rash Verified 08/03/19 12:52 PFSH Acute PFSH: Medical History Atherosclerosis of [place] arteries of extremity with intermittent claudication Nonobstructive coronary artery disease Atrial fibrillation BPH (benign prostatic hyperplasia) CHF (congestive heart failure) CVA (cerebral vascular accident) 2019 Diabetes mellitus Borderline diabetes Osteoarthritis Right bundle branch block Surgical History S/P eye surgery S/P knee surgery S/P tonsillectomy and adenoidectomy Family History Mother CHF (congestive heart failure) Pneumonia Father CHF (congestive heart failure) Stroke Other Diabetes Hypertension Social History Smoking and tobacco status: never smoked Alcohol intake: never Lives independently: Yes 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, [email or web address] History of recent travel: No Vitals/I&O/Wt Last Vital Signs Temp 98.0 F 12/05/19 12:11 Pulse 94 12/05/19 20:08 Resp 17 12/05/19 20:08 BP 155/83 12/05/19 20:08 Pulse Ox 94 12/05/19 20:08 12/05/19 12/05/19 12/05/19 06:59 14:59 22:59 Intake Total 100 / 100 Balance 100 / 100 Weight last 48 hrs Weight 108.862 kg Physical Exam Const: COMMON NORMALS: no acute distress, patient oriented x3 and alert GENERAL APPEARANCE: cooperative and comfortable ORIENTATION/CONSCIOUSNESS: Yes awake OTHER: -looks appropriate for age, very pleasant HENMT: COMMON NORMALS: normocephalic, atraumatic and hearing grossly normal bilaterally HEAD & SCALP: normocephalic and atraumatic GENERAL EAR: hearing grossly impaired MOUTH: moist mucous membranes abnormal Details: parched Eye: COMMON NORMALS: Equal, round and reactive pupils present, EOMs intact bilaterally and conjunctivae normal CONJUNCTIVA: Yes conjunctivae normal PUPIL: Yes Equal, round and reactive pupils present Neck/C-Spine: COMMON NORMALS: full ROM GENERAL: Yes normal visual inspection and Yes trachea midline Resp: COMMON NORMALS: normal respiratory effort, No retractions, No use of accessory muscles and clear to auscultation bilaterally EFFORT & INSPECTION: Yes able to speak in complete sentences, Yes symmetric chest movement and No tachypneic AUSCULTATION: diminished lung sounds OTHER: -on 2 L NC Cardio: COMMON NORMALS: regular rate, regular rhythm, S1 normal heart sound present, S2 normal heart sound present and No murmurs present (Cardio) RATE: regular rate RHYTHM: regular rhythm HEART SOUNDS: S1 normal heart sound present and S2 normal heart sound present GI: COMMON NORMALS: Normal to inspection, nondistended, normoactive bowel sounds present, Soft to palpation and non-tender PALPATION: Yes Soft to palpation Extremity: COMMON NORMALS: normal to inspection and full ROM GENERAL: Yes edema (non-pitting, bilateral LE) Neuro: COMMON NORMALS: patient oriented x3, moves all extremities, no focal motor deficits and no sensory deficits noted Psych: COMMON NORMALS: mental status grossly normal, Normal thought process present, cooperative, normal affect and speech normal SPEECH: Yes normal speech THOUGHT PROCESS: Normal thought process present Skin: COMMON NORMALS: no rashes or lesions noted, no jaundice, no petechiae and no mottling GENERAL SKIN EXAM: no rashes or lesions noted Data : 10/09/20 11:23 12/05/19 11:23 A&P Assessment and plan (1) COVID-19 virus infection: -COVID-19 positive per rapid testing -Currently requiring 2 L nasal cannula, continue to monitor respiratory status closely. Not oxygen dependent at baseline -Started on IV steroids and remdesevir, continue these -Start on zinc, vitamin C, inhaler treatments as needed, incentive spirometry, pulmonary toilet -telemetry monitoring -monitor vital signs -imaging reviewed -trend inflammatory markers Status: Acute (2) Chest pain: -has had prior episodes of chest pain, typically stress-related -does have known CAD, f/u with cardiology -trend troponins, ECG; telemetry monitoring -likely atypical -LANI -Had nuclear stress testing done in July which showed changes suggestive of old VA versus scarring, negative for acute ischemia Status: Acute Qualifiers: Chest pain type: unspecified Qualified Code(s): R07.9 - Chest pain, unspecified (3) CHF (congestive heart failure): -Echo (06/2019): EF=25-30%, G3DD, severe global hypokinesis, mild pulmonary HTN, mild MR, mild AR, mild TR -f/u with Dr. Tello -resume diuretics -monitor closely for fluid overload particularly with acute infection -monitor vital signs Status: Chronic Qualifiers: Heart failure type: combined systolic and diastolic Heart failure chronicity: chronic Qualified Code(s): I50.42 - Chronic combined systolic (congestive) and diastolic (congestive) heart failure (4) Atrial fibrillation: -telemetry monitoring -resume AC with pradaxa -resume metoprolol Status: Chronic Qualifiers: Atrial fibrillation type: unspecified chronic Qualified Code(s): I48.20 - Chronic atrial fibrillation, unspecified Additional A&P Information -hx of non-obstructive CAD; resume ASA, statin, BB, ACEi -hx of CVA x 2 -hx of PE (06/2019): on AC -Generalized weakness, likely secondary to infection; PT evaluation, fall precautions; typically ambulates with walker/WC -BPH; resume meds -DVT ppx not needed as on Pradaxa -GI ppx with PPI -Dispo: home -Code status: FULL code, discussed with patient -[facility] Necessity Statement*: Rober R Smiley's hospital stay will require greater than 2 midnights for management of COVID-19 infection, currently requiring supplemental oxygen support and close monitoring of respiratory status. Time Spent in Patient Care: Greater than 35 minutes (>than 50% of time spent in counselling and/or direct pt care on unit) . Coding Level of Care Code Acute Research Psychologist for g Fwd Diagnoses COVID-19 virus infection U07.1 Chest pain R07.9 Chest pain type: unspecified CHF (congestive heart failure) I50.42 Heart failure type: combined systolic and diastolic Heart failure chronicity: chronic Atrial fibrillation I48.20 Atrial fibrillation type: unspecified chronic
[2019-12-05] MEDS: azithromycin 500 MG in sodium chloride 0.9% 250 ML 250 MG IV (23:37)
[2019-12-05] MEDS: gabapentin 400 mg Capsule 1200 MG PO (23:38)
[2019-12-05] MEDS: finasteride 5 mg Tablet PO (23:38)
[2019-12-05] MEDS: atorvastatin 40 mg Tablet 20 MG PO (23:38)
[2019-12-05] MEDS: acetaminophen 325 mg Tablet 650 MG PO (23:39)
[2019-12-05] MEDS: TRAMadol 50 mg Tablet PO (23:40)
[2019-12-06] VITALS (28 sets, daily range): BP systolic 104–147; BP diastolic 44–101; PULSE 40–100; RESP 12–29; TEMP 36.6; O2SAT 90–96; BMI 37.2
[2019-12-06 05:46] LABS: Fibrinogen 411 mg/dL (174-498)
[2019-12-06 05:49] LABS: D Dimer <= 0.27 ug/mIFEU (0-0.59)
[2019-12-06 05:51] LABS: Anion Gap 12.3 (5-19); Blood Urea Nitrogen 16 mg/dL (8-23); Calcium 8.7 mg/dL (8.5-10.5); Carbon Dioxide 25 mmol/L (22-29); Chloride 103 mmol/L (98-107); Glucose 149 mg/dL (65-115); Magnesium 2.1 mg/dL (1.7-2.3); Osmolality Calculated 286 mOsm/kg (285-295); Potassium 4.3 mmol/L (3.5-5.1); Sodium 136 mmol/L (136-145)
[2019-12-06 05:52] LABS: C Reactive Protein 7.1 mg/L (0.0-4.9); Creatine Phosphokinase 30 U/L (39-308); Ferritin 116 ng/mL (30-400); Lactate Dehydrogenase 131 U/L (135-225)
[2019-12-06 07:13] LABS: Basophils % 0.2 %; Hematocrit 38.8 % (42.0-52.0); Hemoglobin 12.6 g/dL (11.7-16.6); Lymphocytes # 0.7 10^3/uL (0.8-4.8); Lymphocytes % 12.5 %; Mean Corpuscular HGB Conc 32.5 g/dL (30.0-36.0); Mean Corpuscular Volume 95.3 fL (80-94); Mean Platelet Volume 11.8 fL (7.4-10.4); Monocytes # 0.2 10^3/uL (0.2-0.9); Monocytes % 2.6 %; Neutrophils # 4.85 10^3/uL (1.8-7.7); Neutrophils % 84.4 %; Nucleated Red Blood Cells % 0 %; Platelet Count 193 10^3/cmm (130-400); Red Blood Count 4.07 10^6/uL (4.1-5.3); Red Cell Distribution Width 13.2 % (12.1-15.1); White Blood Count 5.8 10^3/uL (4.0-10.0)
[2019-12-06] MEDS: FUROsemide 40 mg Tablet 80 MG PO (10:08)
[2019-12-06] MEDS: aspirin 81 mg EC Tablet PO (10:08)
[2019-12-06] MEDS: metoprolol tartrate 25 mg Tablet PO (10:09)
[2019-12-06] MEDS: pantoprazole DR 40 mg Tablet PO (10:09)
[2019-12-06] MEDS: tamsulosin 0.4 mg Capsule 0.8 MG PO (10:10)
[2019-12-06] MEDS: ascorbic acid 500 mg Tablet PO ×2 (10:10→18:25)
[2019-12-06] MEDS: zinc gluconate 50 mg Tablet PO (10:10)
[2019-12-06] MEDS: multivitamin therapeutic Tablet 1 TAB PO (10:11)
[2019-12-06] MEDS: dexamethasone 4 mg/mL INJ 6 MG IVP (10:11)
[2019-12-06] MEDS: potassium chloride ER 10 mEq Tablet 20 MEQ PO (10:11)
[2019-12-06] MEDS: lisinopril 5 mg Tablet PO (10:12)
[2019-12-06] MEDS: metOLazone 5 MG Tablet 2.5 MG PO (10:13)
[2019-12-06] MEDS: ropinirole 0.25 mg Tablet PO ×2 (10:13→18:26)
--- NOTE | 2019-12-06 14:00 | PC.NURSE ---
Pt heart rate was SR with occasional PVC's earlier, currently running SB, junctional rhythm. Dr. Roldan on the floor and let her know, she states that it is a side effect of Remdezavir and is very transient and stops after medication therapy stops. No new orders at this time.
--- NOTE | 2019-12-06 15:48 | PM.PN ---
Subjective Subjective: Interval history: Hemodynamically stable, has been weaned to room air, labs appropriate with minimal elevation of some inflammatory markers. On day 2 of remdesevir. Worked quite well with PT this morning and did his own exercises as well. In good spirits, feels better today. Discussed possibility of discharge home tomorrow if continued improvement which he is quite excited about. Medications: Reviewed: Yes Medication Review Details: Active Medications Generic Name Dose Route Start Last Admin Trade Name Freq PRN Reason Stop Dose Admin Acetaminophen 650 mg 12/05/19 21:54 12/05/19 23:39 Tylenol PO 650 mg Q6H PRN Administration MILD PAIN Albuterol Sulfate 2 puff 12/06/19 00:11 Ventolin INHALATION Q4H.RESPIRATORY P RN SHORTNESS OF LEIDA TH Ascorbic Acid 500 mg 12/06/19 09:00 12/06/19 10:10 Vitamin C PO 500 mg BID VIKTORIA Administration Aspirin 81 mg 12/06/19 09:00 12/06/19 10:08 Aspirin Ec PO 81 mg DAILY VIKTORIA Administration Atorvastatin Calci um 20 mg 12/05/19 22:15 12/05/19 23:38 Lipitor PO 20 mg BEDTIME VIKTORIA Administration Dabigatran 150 mg 12/06/19 09:00 12/06/19 10:13 Pradaxa PO 150 mg BID VIKTORIA Administration Dexamethasone 6 mg 12/06/19 09:00 12/06/19 10:11 Decadron IVP 6 mg Q24H VIKTORIA Administration Docusate Sodium 100 mg 12/05/19 21:59 Colace PO BID PRN Constipation Finasteride 5 mg 12/05/19 22:15 12/05/19 23:38 Proscar PO 5 mg BEDTIME VIKTORIA Administration Furosemide 80 mg 12/06/19 09:00 12/06/19 10:08 Lasix PO 80 mg DAILY VIKTORIA Administration Furosemide 40 mg 12/06/19 18:00 Lasix PO QPM VIKTORIA Gabapentin 1,200 mg 12/05/19 22:45 12/05/19 23:38 Neurontin PO 1,200 mg BEDTIME VIKTORIA Administration Guaifenesin/Dextro methorphan 10 ml 12/05/19 22:09 Robitussin Dm Or al Liq PO Q4H PRN COUGH remdesivir (EUA) 1 00 mg/ 100 mls @ 100 mls /hr 12/06/19 16:30 Sodium Chloride IV 12/09/19 17:29 Q24H VIKTORIA Azithromycin 500 m g/ Sodium 250 mls @ 250 mls /hr 12/05/19 22:00 12/05/19 23:37 Chloride IV 250 mls/hr Q24H VIKTORIA Administration Protocol Lisinopril 5 mg 12/06/19 09:00 12/06/19 10:12 Prinivil PO 5 mg DAILY VIKTORIA Administration Metolazone 2.5 mg 12/06/19 09:00 12/06/19 10:13 Zaroxolyn PO 2.5 mg DAILY VIKTORIA Administration Metoprolol Tartrat e 25 mg 12/06/19 09:00 12/06/19 10:09 Lopressor PO 25 mg BID VIKTORIA Administration Multivitamins Ther apeutic 1 tab 12/06/19 09:00 12/06/19 10:11 Multivitamin Tab PO 1 tab DAILY VIKTORIA Administration Ondansetron HCl 4 mg 12/05/19 21:54 Zofran IVP Q6H PRN NAUSEA AND VOMITI NG Pantoprazole Sodiu m 40 mg 12/06/19 09:00 12/06/19 10:09 Protonix PO 40 mg DAILY [facility] Administration Potassium Chloride 20 meq 12/06/19 09:00 12/06/19 10:11 Klor-Con 10 PO 20 meq DAILY VIKTORIA Administration Ropinirole HCl 0.25 mg 12/06/19 09:00 12/06/19 10:13 Requip PO 0.25 mg BID VIKTORIA Administration Fluticasone/Salmet nusrat 1 puff 12/06/19 08:00 12/06/19 09:50 Advair Diskus 25 0-50 INHALATION 1 puff BID.RESPIRATORY S CH Administration Simethicone 80 mg 12/05/19 21:59 Mylicon Tab PO QID PRN Flatulence Tamsulosin HCl 0.8 mg 12/06/19 09:00 12/06/19 10:10 Flomax PO 0.8 mg DAILY VIKTORIA Administration Tramadol HCl 50 mg 12/05/19 21:59 12/05/19 23:40 Ultram PO 50 mg QID PRN Administration mild to moderate pain Trazodone HCl 100 mg 12/05/19 21:59 Desyrel PO BEDTIME PRN Sleep Zinc Gluconate 50 mg 12/06/19 09:00 12/06/19 10:10 Zinc Gluconate PO 50 mg DAILY VIKTORIA Administration digoxin Allergy (Unknown, Verified 08/03/19 12:52) ALGY-Rash Vitals/I&O/Wt Last Vital Signs Temp 97.9 F 12/06/19 10:30 Pulse 49 L 12/06/19 14:00 Resp 12 12/06/19 14:00 BP 104/44 12/06/19 14:00 Pulse Ox 94 12/06/19 14:00 12/06/19 12/06/19 12/06/19 06:59 14:59 22:59 Intake Total 200 / 660 120 / 120 Output Total 300 / 600 Balance -100 / 60 120 / 120 Weight last 48 hrs Weight 121.018 kg Weight 108.862 kg Physical Exam Const: COMMON NORMALS: no acute distress, patient oriented x3 and alert GENERAL APPEARANCE: cooperative and comfortable ORIENTATION/CONSCIOUSNESS: Yes awake OTHER: -looks appropriate for age, very pleasant HENMT: COMMON NORMALS: normocephalic, atraumatic and hearing grossly normal bilaterally HEAD & SCALP: normocephalic and atraumatic GENERAL EAR: hearing grossly impaired MOUTH: moist mucous membranes abnormal Details: parched Eye: COMMON NORMALS: Equal, round and reactive pupils present, EOMs intact bilaterally and conjunctivae normal CONJUNCTIVA: Yes conjunctivae normal PUPIL: Yes Equal, round and reactive pupils present Neck/C-Spine: COMMON NORMALS: full ROM GENERAL: Yes normal visual inspection and Yes trachea midline Resp: COMMON NORMALS: normal respiratory effort, No retractions, No use of accessory muscles and clear to auscultation bilaterally EFFORT & INSPECTION: Yes able to speak in complete sentences, Yes symmetric chest movement and No tachypneic AUSCULTATION: clear to auscultation bilaterally and diminished lung sounds OTHER: -on RA Cardio: COMMON NORMALS: regular rate, regular rhythm, S1 normal heart sound present, S2 normal heart sound present and No murmurs present (Cardio) RATE: regular rate RHYTHM: regular rhythm HEART SOUNDS: S1 normal heart sound present and S2 normal heart sound present GI: COMMON NORMALS: Normal to inspection, nondistended, normoactive bowel sounds present, Soft to palpation and non-tender PALPATION: Yes Soft to palpation Extremity: COMMON NORMALS: normal to inspection and full ROM GENERAL: Yes edema (non-pitting, bilateral LE) Neuro: COMMON NORMALS: patient oriented x3, moves all extremities, no focal motor deficits and no sensory deficits noted SENSORIUM/ORIENTATION: Yes alert Psych: COMMON NORMALS: mental status grossly normal, Normal thought process present, cooperative, normal affect and speech normal SPEECH: Yes normal speech THOUGHT PROCESS: Normal thought process present Skin: COMMON NORMALS: no rashes or lesions noted, no jaundice, no petechiae and no mottling GENERAL SKIN EXAM: no rashes or lesions noted Data : 12/06/19 04:20 12/06/19 04:20 Micro: Microbiology 12/06/19 04:20 Blood Culture - Preliminary Blood SPECIMEN COLLECTED 12/06/19 04:20 Blood Culture - Preliminary Blood SPECIMEN COLLECTED A&P Assessment and plan (1) COVID-19 virus infection: -COVID-19 positive per rapid testing -has been weaned to RA, continue to monitor respiratory status closely. Not oxygen dependent at baseline -on IV steroids and remdesevir (day 2), continue these -on zinc, vitamin C, inhaler treatments as needed, incentive spirometry, pulmonary toilet -telemetry monitoring -monitor vital signs -imaging reviewed -inflammatory markers are mostly wnl and those that are elevated are only minimally high Status: Acute (2) Chest pain: -has had prior episodes of chest pain, typically stress-related -does have known CAD, f/u with cardiology -trend troponins, ECG; telemetry monitoring -likely atypical -LANI -Had nuclear stress testing done in July which showed changes suggestive of old PR versus scarring, negative for acute ischemia Status: Acute Qualifiers: Chest pain type: unspecified Qualified Code(s): R07.9 - Chest pain, unspecified (3) CHF (congestive heart failure): -Echo (06/2019): EF=25-30%, G3DD, severe global hypokinesis, mild pulmonary HTN, mild MR, mild AR, mild TR -f/u with Dr. Tello -continue diuretics -continue to monitor closely for fluid overload particularly with acute infection -continue to monitor vital signs Status: Chronic Qualifiers: Heart failure chronicity: chronic Heart failure type: combined systolic and diastolic Qualified Code(s): I50.42 - Chronic combined systolic (congestive) and diastolic (congestive) heart failure (4) Atrial fibrillation: -telemetry monitoring -continue AC with pradaxa -continue metoprolol Status: Chronic Qualifiers: Atrial fibrillation type: unspecified chronic Qualified Code(s): I48.20 - Chronic atrial fibrillation, unspecified Additional A&P Information -hx of non-obstructive CAD; resume ASA, statin, BB, ACEi -hx of CVA x 2 -hx of PE (06/2019): on AC -Generalized weakness, likely secondary to infection; PT evaluation appreciated, fall precautions; typically ambulates with walker/WC -BPH; continue meds -DVT ppx not needed as on Pradaxa -GI ppx with PPI -Dispo: home -Code status: FULL code, discussed with patient -as he is clinically improving, stable off oxygen, may be able to discharge tomorrow if continued stability/improvement -attempted to reach daughter Emili Mccormick via phone, contact # is for [employer] Medical Necessity Statement*: Patient requires hospitalization for continued management of COVID-19 infection, on antiviral treatment. Time Spent in Patient Care: 16 - 35 minutes (>than 50% of time spent in counselling and/or direct pt care on unit). Coding Level of Care Code Acute Brown Stock Washer for [facility] Fwd Exam Comprehensive Diagnoses COVID-19 virus infection U07.1 Chest pain R07.9 Chest pain type: unspecified CHF (congestive heart failure) I50.42 Heart failure chronicity: chronic Heart failure type: combined systolic and diastolic Atrial fibrillation I48.20 Atrial fibrillation type: unspecified chronic
--- NOTE | 2019-12-06 16:35 | PC.NURSE ---
spoke to Dr. Roldan regarding pt HR getting in the 30's. She states for us to hold the Metoprolol for now.
[2019-12-06] MEDS: FUROsemide 40 mg Tablet PO (18:25)
[2019-12-06] MEDS: atorvastatin 40 mg Tablet 20 MG PO (21:19)
[2019-12-06] MEDS: azithromycin 500 MG in sodium chloride 0.9% 250 ML 250 MG IV (21:19)
[2019-12-06] MEDS: gabapentin 400 mg Capsule 1200 MG PO (21:19)
[2019-12-06] MEDS: finasteride 5 mg Tablet PO (21:19)
[2019-12-06] MEDS: acetaminophen 325 mg Tablet 650 MG PO (21:20)
[2019-12-06] MEDS: trazodone 100 mg Tablet PO (21:21)
[2019-12-06] MEDS: TRAMadol 50 mg Tablet PO (21:21)
[2019-12-07] VITALS (14 sets, daily range): BP systolic 98–182; BP diastolic 50–94; PULSE 40–90; RESP 6–28; TEMP 36.2–36.9; O2SAT 91–97; BMI 37.2
--- NOTE | 2019-12-07 01:08 | PC.NURSE ---
Patient was put on hold of metoprolol on dayshift today due to bradycardia. Patient has maintained 40-60 most of the shift mainly in the 40's VS WNL otherwise. Patient asymptomatic. Notified provider due to dips into the 30's as patient went into deeper sleep, Patient easily arousable and denies any symptoms. Patient maintaining adequate oxygenation in the 90-92 range on room air. Will continue to monitor and got order for symptomatic bradycardia of atropine.
[2019-12-07] MEDS: atropine 0.1 mg/mL Syr 10 mL 0.5 MG IVP ×2 (05:25→05:35)
--- NOTE | 2019-12-07 05:58 | PC.NURSE ---
Patient continues to be responsive to touch. Claims not to have any symptoms or ill feelings. VS continue to maintain adequate oxygenation and BP. Patient starting to have longer pauses and maintaining pulses in the low 30 to 40's with occassional dip to upper twenties. Two doses of atropine 0.5mg IVP given at 5 minutes apart first dose brought patient to upper 30's to 40's second dose given patient now maintaining in the 60's will continue to monitor and pass on in report to dayshift. Patient did still contend that the metoprolol stays in his system for usually over 24 hours before the bradycardia subsides.
[2019-12-07] MEDS: pantoprazole DR 40 mg Tablet PO (08:40)
[2019-12-07] MEDS: multivitamin therapeutic Tablet 1 TAB PO (08:40)
[2019-12-07] MEDS: aspirin 81 mg EC Tablet PO (08:40)
[2019-12-07] MEDS: FUROsemide 40 mg Tablet 80 MG PO (08:40)
[2019-12-07] MEDS: dexamethasone 4 mg/mL INJ 6 MG IVP (08:40)
[2019-12-07] MEDS: zinc gluconate 50 mg Tablet PO (08:40)
[2019-12-07] MEDS: tamsulosin 0.4 mg Capsule 0.8 MG PO (08:40)
[2019-12-07] MEDS: ascorbic acid 500 mg Tablet PO (08:40)
[2019-12-07] MEDS: potassium chloride ER 10 mEq Tablet 20 MEQ PO (08:40)
[2019-12-07] MEDS: lisinopril 5 mg Tablet PO (08:41)
[2019-12-07] MEDS: ropinirole 0.25 mg Tablet PO (08:41)
[2019-12-07] MEDS: metOLazone 5 MG Tablet 2.5 MG PO (08:41)
--- NOTE | 2019-12-07 09:23 | P.DS_ITS ---
Discharge Providers Date of Admission: 12/05/19 17:15 Date of Discharge: December 07, 2019 Attending Provider at Admission: Yuli River MD Attending Provider at Discharge: Yuli River MD Consults: None Primary Care Provider: WILFREDO Brandt Diagnoses at Discharge Discharge Diagnosis (1) COVID-19 virus infection: Status: Acute Problem details: -COVID-19 positive per rapid testing -has been weaned to RA, continue to monitor respiratory status closely. Not oxygen dependent at baseline -on IV steroids and remdesevir (day 3), continue these -on zinc, vitamin C, inhaler treatments as needed, incentive spirometry, pulmonary toilet -telemetry monitoring -monitor vital signs -imaging reviewed -inflammatory markers are mostly wnl and those that are elevated are only minimally high (2) Chest pain: Status: Resolved Problem details: -has had prior episodes of chest pain, typically stress-related -does have known CAD, f/u with cardiology -trend troponins, ECG; telemetry monitoring -likely atypical -LANI -Had nuclear stress testing done in July which showed changes suggestive of old IA versus scarring, negative for acute ischemia Qualifiers: Chest pain type: unspecified Qualified Code(s): R07.9 - Chest pain, unspecified (3) CHF (congestive heart failure): Status: Chronic Problem details: -Echo (06/2019): EF=25-30%, G3DD, severe global hypokinesis, mild pulmonary HTN, mild MR, mild AR, mild TR -f/u with Dr. Tello -continue diuretics -continue to monitor closely for fluid overload particularly with acute infection -continue to monitor vital signs Qualifiers: Heart failure type: combined systolic and diastolic Heart failure chronicity: chronic Qualified Code(s): I50.42 - Chronic combined systolic (congestive) and diastolic (congestive) heart failure (4) Atrial fibrillation: Status: Chronic Problem details: -telemetry monitoring -continue AC with pradaxa -continue metoprolol Qualifiers: Atrial fibrillation type: unspecified chronic Qualified Code(s): I48.20 - Chronic atrial fibrillation, unspecified Other Information Additional DC diagnoses/information: -hx of non-obstructive CAD; resume ASA, statin, BB, ACEi -hx of CVA x 2 -hx of PE (06/2019): on AC -Generalized weakness, likely secondary to infection; PT evaluation appreciated, fall precautions; typically ambulates with walker/WC; safe for discharge home per PT -BPH; continue meds Reason for Visit Reason for Visit: LETHARGIC Hospital Course Hospital Course: Patient was admitted to the viral ICU after having been found positive for COVID-19. Due to noted need for supplemental oxygen support he was started on IV steroids and remdesevir, which she has received a total of 3 doses with noted significant improvement in his symptoms and ability to be weaned off supplemental oxygen for >24 hrs. Chest x-ray was reported as unremarkable, inflammatory markers have improved though most of them were fairly normal. He is quite independent at baseline and has been cleared for discharge home by physical therapy. He lives independently and has good support from his family. He is not oxygen dependent at baseline and as he has been off supplemental oxygen support for over 24 hours will not require home oxygen evaluation at this time. Appropriate follow-up with his primary care provider will be arranged. He will be discharged home on continued antibiotic therapy to complete a short treatment course in addition to steroid taper. He was intermittently bradycardic which could be related to remdesevir and we did need to hold his beta-genia for some time to prevent further bradycardia. Patient was asymptomatic during this episodes. He has been consistently afebrile and otherwise hemodynamically stable. He was maintained on his diuretics. Per his own admission he is no longer taking tramadol as he has had some issues with slowing of his heart rate while on this medication so I have added to his allergy list and discontinued it on his home discharge medication list as well. His mental status has returned to baseline. He feels stronger and safe to return home this afternoon. Physical Exam Const: COMMON NORMALS: no acute distress, patient oriented x3 and alert GENERAL APPEARANCE: cooperative and comfortable ORIENTATION/CONSCIOUSNESS: Y es awake OTHER: -looks appropriate for age, very pleasant HENMT: COMMON NORMALS: normocephalic, atraumatic and hearing grossly normal bilaterally HEAD & SCALP: normocephalic and atraumatic GENERAL EAR: hearing grossly impaired MOUTH: moist mucous membranes abnormal Details: parched Eye: COMMON NORMALS: Equal, round and reactive pupils present, EOMs intact bilaterally and conjunctivae normal CONJUNCTIVA: Yes conjunctivae normal PUPIL: Yes Equal, round and reactive pupils present Neck/C-Spine: COMMON NORMALS: full ROM GENERAL: Yes normal visual inspection and Yes trachea midline Resp: COMMON NORMALS: normal respiratory effort, No retractions, No use of accessory muscles and clear to auscultation bilaterally EFFORT & INSPECTION: Yes able to speak in complete sentences, Yes symmetric chest movement and No tachypneic AUSCULTATION: clear to auscultation bilaterally and diminished lung sounds OTHER: -on RA Cardio: COMMON NORMALS: regular rate, regular rhythm, S1 normal heart sound present, S2 normal heart sound present and No murmurs present (Cardio) RATE: regular rate RHYTHM: regular rhythm HEART SOUNDS: S1 normal heart sound present and S2 normal heart sound present GI: COMMON NORMALS: Normal to inspection, nondistended, normoactive bowel sounds present, Soft to palpation and non-tender PALPATION: Yes Soft to palpation Extremity: COMMON NORMALS: normal to inspection and full ROM GENERAL: Yes edema (non-pitting, bilateral LE) Neuro: COMMON NORMALS: patient oriented x3, moves all extremities, no focal motor deficits and no sensory deficits noted SENSORIUM/ORIENTATION: Yes alert Psych: COMMON NORMALS: mental status grossly normal, Normal thought process present, cooperative, normal affect and speech normal SPEECH: Yes normal speech THOUGHT PROCESS: Normal thought process present Skin: COMMON NORMALS: no rashes or lesions noted, no jaundice, no petechiae and no mottling GENERAL SKIN EXAM: no rashes or lesions noted Discharge Data Data Completed and Pending: Completed Studies During Hospitalization Category Date Time Status CT angio chest PE protcl 91016 Urge nt Cat Scan 12/05/19 14:17 Completed XR chest 1V [place]rist[place] ble [id number] Stat Exams 12/05/19 12:21 Completed Pending at discharge Category Date Time Status Blood Culture Sta t Lab 12/05/19 21:54 Results Sputum Culture an d Gram Stain Routi ne Lab 12/05/19 21:54 Uncollected Vitals: Last Vital Signs Temp 98.1 F 12/07/19 05:00 Pulse 89 12/07/19 08:22 Resp 18 12/07/19 08:22 BP 142/70 12/07/19 06:00 Pulse Ox 93 12/07/19 08:22 Discharge Plan Discharge Patient Disposition: Home Condition: Stable Prescriptions: New Advair Diskus 250-50 mcg/dose Blister With Device 1 puff inhalation BID.RESPIRATORY Qty: 60 RF: 0 Vitamin C 500 mg Tablet 500 mg PO DAILY Qty: 30 RF: 0 zinc gluconate 50 mg Tablet 50 mg PO DAILY Qty: 30 RF: 0 prednisone 10 mg tablet See Rx Instructions .ROUTE .COMPLEX 12 Days Qty: 30 RF: 0 azithromycin 500 mg tablet 500 mg PO DAILY 3 Days Qty: 3 RF: 0 Continued furosemide 80 mg tablet 80 mg PO DIRECTED RF: 0 potassium chloride 20 mEq/15 mL liquid See Rx Instructions .ROUTE .COMPLEX RF: 0 aspirin [Adult Low Dose Aspirin] 81 mg tablet,delayed release (DR/EC) 81 mg PO DAILY RF: 0 multivitamin Tablet 1 tab PO DAILY RF: 0 docusate sodium 100 mg capsule 100 mg PO BID PRN (Reason: Constipation) RF: 0 trazodone 100 mg tablet 100 mg PO BEDTIME PRN (Reason: Sleep) RF: 0 lisinopril 5 mg Tablet 5 mg PO DAILY Qty: 30 RF: 0 simethicone 80 mg Tablet,Chewable 80 mg PO QID PRN (Reason: Flatulence) Qty: 10 RF: 0 Pradaxa 150 mg Capsule 150 mg PO BID Qty: 60 RF: 0 acetaminophen [Tylenol] 325 mg Tablet 325 - 650 mg PO PRN PRN (Reason: Pain) RF: 0 simvastatin 40 mg Tablet 20 mg PO BEDTIME RF: 0 tamsulosin [Flomax] 0.4 mg Capsule 0.8 mg PO DAILY RF: 0 finasteride [Proscar] 5 mg Tablet 5 mg PO BEDTIME RF: 0 glipizide 5 mg Tablet 5 mg PO BID RF: 0 Prilosec 10 mg Susp,Delayed Release For Recon 40 mg PO BEDTIME RF: 0 hydroxyzine HCl 10 mg tablet 10 mg PO Q6H PRN (Reason: UNKNOWN) RF: 0 Myrbetriq 25 mg tablet extended release 24 hr 25 mg PO DAILY RF: 0 Aleve 220 mg tablet 220 mg PO PRN PRN (Reason: Pain) RF: 0 gabapentin 600 mg Tablet 1,200 mg PO BEDTIME RF: 0 ropinirole 0.25 mg Tablet 0.25 mg PO BID RF: 0 albuterol sulfate 90 mcg/actuation Hfa Aerosol Inhaler 2 puff INHALATION Q6H PRN (Reason: Shortness Of Breath) RF: 0 metoprolol tartrate 25 mg Tablet 25 mg PO BID Qty: 60 RF: 0 Discontinued metolazone 2.5 mg tablet 2.5 mg PO DAILY Qty: 7 RF: 0 tramadol 50 mg Tablet 50 mg PO QID PRN (Reason: Pain) RF: 0 Discharge Orders: Discharge Order (Routine); Ordered 12/07/19 Ordered By: Yuli River Referrals: Mei Flores [facility] [facility] [Primary Care Provider] - 4-7 days (Post hospital discharge follow up. Unable to make appointment due to it being a weekend.) Discharge Diet: Cardiac and Diabetic Discharge Activity: Increase activity as tolerated Patient Instructions: Prednisone (By mouth), Zinc Sulfate (By mouth), Sera thromycin (By mouth), Ascorbic Acid (Vitamin C) (By mouth), Fluticasone/Salmeterol (By breathing), Heart Healthy Diet, Basic Carbohydrate Counting (DC) Activity Restrictions/Additional Instructions: -Please continue self isolation precautions, frequent handwashing, social distancing and mask wearing. -Please continue to monitor your symptoms and if noted worsening, fever, low oxygen levels, inability to eat or drink; please seek medical attention immediately Discharge Attestations Time Spent in Discharge Care*: greater than 30 min Specific Discharge Activities: Specific discharge activities: educating patient, educating and/or supporting family/caregiver, discussing with field nurse case manager/social workers/dc planners, documenting/other paperwork and evaluating patient/reviewing data Status at Discharge: Cognitive status at discharge: cognitively intact , Behavioral status at discharge: cooperative and independent in ADL's , Functional status at discharge: uses cane/walker Overall status at discharge: patient is progressing back to baseline Quality Metrics Clinical Quality Measures During this hospital stay, did patient experience: None Coding Level of Care Code Acute [facility] Brake Man for [facility] Fwd Diagnoses COVID-19 virus infection U07.1 Chest pain R07.9 Chest pain type: unspecified CHF (congestive heart failure) I50.42 Heart failure type: combined systolic and diastolic Heart failure chronicity: chronic Atrial fibrillation I48.20 Atrial fibrillation type: unspecified chronic
== END 2019-12-07 12:58 | disposition home or self-care (01) | DRG 178 ==
LOC: ER 17:25 → ICU 18:20
PROVIDERS: Admitting Provider Family Medicine; Emergency Provider Emergency Medicine; PCP Nurse Practitioner; Visit Provider Family Medicine
DX: U07.1 COVID-19 (principal); I48.20 Chronic atrial fibrillation, unspecified; I50.42 Chronic combined systolic (congestive) and diastolic (congestive) heart failure; I25.10 Atherosclerotic heart disease of native coronary artery without angina pectoris; N40.0 Benign prostatic hyperplasia without lower urinary tract symptoms; Z86.73 Personal history of transient ischemic attack (TIA), and cerebral infarction without residual deficits; E11.9 Type 2 diabetes mellitus without complications; M19.90 Unspecified osteoarthritis, unspecified site; I27.20 Pulmonary hypertension, unspecified; I08.3 Combined rheumatic disorders of mitral, aortic and tricuspid valves; Z79.01 Long term (current) use of anticoagulants; Z86.711 Personal history of pulmonary embolism; R07.89 Other chest pain; Z79.82 Long term (current) use of aspirin; Z79.84 Long term (current) use of oral hypoglycemic drugs
CPT/HCPCS: 12345; 36415; 71045; 71275; 80048; 80053; 81003; 82009; 82550; 82728; 83605; 83615; 83690; 83735; 83880; 84145; 84484; 85025; 85378; 85384; 85610; 86140; 87040; 87205; 87426; 93005; 94640; 96375; 97110; 97161; 99283; J0456; J0461; J1100; J1650; J7050; Q9967

== ENCOUNTER 2019-12-15 08:10 | Emergency (ER) | payer OTHER, MEDICARE, SELFPAY ==
[2019-12-15 08:10] VITALS: BP 150/70; PULSE 124; RESP 28; TEMP 39.4; O2SAT 96; BMI 35.5
--- NOTE | 2019-12-15 08:15 | XRR_ITS ---
PROCEDURE INFORMATION: Exam: XR Chest, 1 View Exam date and time: 12/15/2019 8:23 AM Age: 84 years old Clinical indication: Dyspnea and fever and shortness of breath; Patient HX: Covid + TECHNIQUE: Imaging protocol: XR of the chest Views: 1 view. COMPARISON: CR XR chest 1V portable [id number] 12/05/2019 12:29 PM FINDINGS: Lungs: There are bibasilar pulmonary infiltrates especially on the right side. There is also right basilar atelectasis with a right pleural effusion. These pulmonary findings have worsened since the previous study from 12/05/2019. Pleural space: Small right pleural effusion no pneumothorax. Heart/Mediastinum: The cardiac silhouette is enlarged but unchanged. Bones/joints: Unremarkable. XR/XR chest 1V portable [id number] IMPRESSION: Worsening bilateral pulmonary infiltrates and effusion especially on the right side.
[2019-12-15 08:17] VITALS: BP 150/70; PULSE 120; RESP 26; TEMP 39.4; O2SAT 96
--- NOTE | 2019-12-15 08:18 | W.ED.COVID ---
HPI - COVID General: Chief Complaint: COVID symptoms Stated Complaint: SOB, COVID + Time Seen by Provider: 12/15/19 08:14 Triage information: Has fever, cough or shortness of breath. Exposure to COVID + person last 14 days History of Present Illness: HPI Narrative: 84 yo male present with dyspnea. known COVID + that tested 12/04. [place] [facility] [place] had a visit to the ER at [facility]. At that time he was having urinary retention and a Chavez was placed that is still in place today. Over the last couple of days patient has had increasing productive cough of clear sputum. He has abdominal discomfort but he relates that is being secondary to coughing fits. He has a known history of atrial fibrillation has not stopped any of his medications. He has been started on dexamethasone he does not feel like the dexamethasone of the albuterol inhaler has really helped that much. He is running a fever as well he denies diarrhea or vomiting. EMS reports 70% on room air at the scene on 15 L by nonrebreather patient is maintaining sats in the upper 90s. MD complaint: known COVID positive Prior covid testing: yes, results known COVID 19 common symptoms: positive dyspnea, fatigue, body aches and nasal congestion; negative nausea, vomiting or diarrhea COVID 19 other sytmptoms: positive requiring oxygen and requiring more oxygen; negative chest pain Onset (ago): day(s) Severity: severe Pertinent comorbid conditions: diabetes, hypertension and obesity Treatment prior to arrival: oxygen COVID Results: SARS-CoV-2 Antigen (Rapid) Positive (Negative) H 12/05/19 14:06 12/05/19 Review of Systems Const: Reports: body aches and fatigue ENMT: Reports: nasal congestion Card: Denies: chest pain, edema, dyspnea on exertion or orthopnea Resp: Reports: dyspnea GI: Denies: abdominal pain, nausea, vomiting, hematemesis, coffee ground emesis, diarrhea, constipation, bloating, hematochezia or melena : Denies: flank pain, dysuria, urinary frequency or urinary urgency Skin/Breast: Denies: rash or pruritus [facility] ED PFSH: Medical History Atherosclerosis of [place] arteries of extremity with intermittent claudication Nonobstructive coronary artery disease Atrial fibrillation -telemetry monitoring -continue AC with pradaxa -continue metoprolol BPH (benign prostatic hyperplasia) CHF (congestive heart failure) -Echo (06/2019): EF=25-30%, G3DD, severe global hypokinesis, mild pulmonary HTN, mild MR, mild AR, mild TR -f/u with Dr. 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, [email or web address] History of recent travel: No Physical Exam Const: COMMON NORMALS: no acute distress GENERAL APPEARANCE: cooperative and comfortable ORIENTATION/CONSCIOUSNESS: Yes awake, Yes oriented to person, Yes oriented to place and Yes oriented to time HENMT: COMMON NORMALS: normocephalic, atraumatic and hearing grossly normal bilaterally HEAD & SCALP: normocephalic and atraumatic Eye: COMMON NORMALS: Equal, round and reactive pupils present, EOMs intact bilaterally, conjunctivae normal and no scleral icterus CONJUNCTIVA: Yes conjunctivae normal PUPIL: Yes Equal, round and reactive pupils present Neck/C-Spine: COMMON NORMALS: full ROM, no lymphadenopathy, supple and no JVD Lymph: LYMPHATIC: no lymphadenopathy noted and no lymphedema noted Resp: AUSCULTATION: rhonchi and wheezes Cardio: COMMON NORMALS: no JVD, regular rate, regular rhythm and No murmurs present (Cardio) RATE: regular rate RHYTHM: regular rhythm GI: COMMON NORMALS: Soft to palpation and No hepatosplenomegaly present AUSCULTATION: Yes normoactive bowel sounds PALPATION: Yes Soft to palpation, No Tenderness to palpation present (GI), No Guarding due to palpation present (GI) and Yes No hepatosplenomegaly present Extremity: COMMON NORMALS: normal to inspection, capillary refill normal, no clubbing, cyanosis or edema, no calf tenderness and no pedal edema Neuro: SENSORIUM/ORIENTATION: Yes oriented to person, Yes oriented to place and Yes oriented to time Skin: COMMON NORMALS: no rashes or lesions noted GENERAL SKIN EXAM: no rashes or lesions noted Course Vital Signs: Vital signs: Vital Signs Temperature 97.5 F L 12/15/19 18:00 Pulse Rate 80 12/15/19 19:13 Respiratory Rate 20 H 12/15/19 19:13 Blood Pressure 147/73 12/15/19 19:13 Pulse Oximetry 97 12/15/19 19:13 MDM - COVID MDM Narrative Medical decision making narrative: Patient requires significant oxygen support. We made attempt to admit him here however there are no beds available. Will transfer him to [facility]. Of discussed with the transfer center they are also quite busy there is a significant delay in getting a bed assignment. To maintain him down in the emergency room his oxygen sats remained good and he maintained awake and alert. He does require monitoring in a viral ICU I believe due to the fact of his significant comorbidities his age and his findings today including significant chest x-ray changes. We rechecked several times during the wait for a bed assignment we are not able to get a bed to open up here at our facility unfortunately. Ultimately patient was transferred by ambulance to [facility]. Lab Data Attestation: I reviewed the patient's lab results. Result diagrams: 12/15/19 08:24 12/15/19 08:24 Labs: Lab Results 12/15/19 12/15/19 12/15/19 Range/Units 08:24 08:24 08:24 WBC 15.5 H (4.0-10.0) 10^3/uL RBC 3.74 L (4.1-5.3) 10^6/uL Hgb 13.4 (11.7-16.6) g/dL Hct 35.8 L (42.0-52.0) % MCV 95.7 H (80-94) fL MCH 35.8 H (28.0-34.0) pg MCHC 37.4 H (30.0-36.0) g/dL RDW 13.1 (12.1-15.1) % Plt Count 215 (130-400) 10^3/cmm MPV 10.1 (7.4-10.4) fL Neut % (Auto) 89.9 % Lymph % (Auto) 3.4 % Mitchell % (Auto) 4.6 % Eos % (Auto) 0.3 % Baso % (Auto) 0.1 % Neut # (Auto) 13.95 H (1.8-7.7) 10^3/uL Lymph # (Auto) 0.5 L (0.8-4.8) 10^3/uL Mitchell # (Auto) 0.7 (0.2-0.9) 10^3/uL Eos # (Auto) 0.0 (0.0-0.8) 10^3/uL Baso # (Auto) 0.0 (0.0-0.1) 10^3/uL Nucleated RBC % (auto) 0 % Nucleated RBCs # 0.0 /100WBC PT 16.30 H (12.1-14.9) SECONDS INR 1.27 H (0.8-1.2) APTT 46.9 H (23.9-36.7) SECONDS Fibrinogen 695 H (174-498) mg/dL D-Dimer 0.72 H (0-0.59) ug/mIFEU Specimen Type Sample Site ABG pH (7.35-7.45) ABG pCO2 (35-45) mmHg ABG pO2 (80.0-100.0) mmHg ABG HCO3 (22-26) mmol/L ABG Base Excess (-2.0-2.0) mmol/L Juan Daniel Test Hematocrit (42-52) % O2 Delivery Device FiO2 % Cleaner Touch Up Worker ID Sodium 131 L (136-145) mmol/L Potassium 4.3 (3.5-5.1) mmol/L Chloride 92 L (98-107) mmol/L Carbon Dioxide 26 (22-29) mmol/L Anion Gap 17.3 (5-19) BUN 25 H (8-23) mg/dL Creatinine 0.8 (0.7-1.2) mg/dL GFR Calculation Not Reportable Glucose 130 H (65-115) mg/dL Calculated Osmolality 278 L (285-295) mOsm/kg Lactic Acid (0.5-2.2) mmol/L Calcium 8.4 L (8.5-10.5) mg/dL Magnesium 1.8 (1.7-2.3) mg/dL Ferritin 522 H (30-400) ng/mL Total Bilirubin 1.1 (0.15-1.2) mg/dL AST 15 (0-40) U/L ALT 10 (0-41) U/L Alkaline Phosphatase 78 (40-130) IU/L Lactate Dehydrogenase 296 H (135-225) U/L Creatine Kinase 38 L (39-308) U/L C-Reactive Protein 223.6 H (0.0-4.9) mg/L Total Protein 6.3 L (6.6-8.7) g/dL Albumin 3.5 (3.5-5.2) g/dL Globulin 2.8 (1.3-4.6) g/dL Procalcitonin 0.43 (0-0.5) ng/mL Urine Color (Yellow) Urine Appearance (CLEAR) Urine pH (5-7) Ur Specific [place] (1.005-1.030) Urine Protein (Negative) Urine Glucose (UA) (Normal) Urine Ketones (Negative) Urine Blood (Negative) Urine Nitrate (Negative) Urine Bilirubin (Negative) Prot Sulfosalicylic Acd (Negative) Urine Urobilinogen (Negative) mg/dL Ur Leukocyte Esterase (Negative) Urine RBC (0-2) /hpf Urine WBC (0-5) /hpf Ur Squamous Epith Cells (0-5) /hpf Amorphous Sediment Urine Bacteria (NONE) /hpf 12/15/19 12/15/19 12/15/19 Range/Units 08:24 08:32 08:38 WBC (4.0-10.0) 10^3/uL RBC (4.1-5.3) 10^6/uL Hgb (11.7-16.6) g/dL Hct (42.0-52.0) % MCV (80-94) fL MCH (28.0-34.0) pg MCHC (30.0-36.0) g/dL RDW (12.1-15.1) % Plt Count (130-400) 10^3/cmm MPV (7.4-10.4) fL Neut % (Auto) % Lymph % (Auto) % Mitchell % (Auto) % Eos % (Auto) % Baso % (Auto) % Neut # (Auto) (1.8-7.7) 10^3/uL Lymph # (Auto) (0.8-4.8) 10^3/uL Mitchell # (Auto) (0.2-0.9) 10^3/uL Eos # (Auto) (0.0-0.8) 10^3/uL Baso # (Auto) (0.0-0.1) 10^3/uL Nucleated RBC % (auto) % Nucleated RBCs # /100WBC PT (12.1-14.9) SECONDS INR (0.8-1.2) APTT (23.9-36.7) SECONDS Fibrinogen (174-498) mg/dL D-Dimer (0-0.59) ug/mIFEU Specimen Type Arterial Sample Site Brachial, left ABG pH 7.51 H (7.35-7.45) ABG pCO2 35.6 (35-45) mmHg ABG pO2 122.0 H (80.0-100.0) mmHg ABG HCO3 28.3 H (22-26) mmol/L ABG Base Excess 5.2 H (-2.0-2.0) mmol/L Juan Daniel Test N/a Hematocrit 39.8 L (42-52) % O2 Delivery Device Nrb FiO2 100.0 % Cleaner Touch Up Worker ID Amh Sodium (136-145) mmol/L Potassium (3.5-5.1) mmol/L Chloride (98-107) mmol/L Carbon Dioxide (22-29) mmol/L Anion Gap (5-19) BUN (8-23) mg/dL Creatinine (0.7-1.2) mg/dL GFR Calculation Glucose (65-115) mg/dL Calculated Osmolality (285-295) mOsm/kg Lactic Acid 1.8 (0.5-2.2) mmol/L Calcium (8.5-10.5) mg/dL Magnesium (1.7-2.3) mg/dL Ferritin (30-400) ng/mL Total Bilirubin (0.15-1.2) mg/dL AST (0-40) U/L ALT (0-41) U/L Alkaline Phosphatase (40-130) IU/L Lactate Dehydrogenase (135-225) U/L Creatine Kinase (39-308) U/L C-Reactive Protein (0.0-4.9) mg/L Total Protein (6.6-8.7) g/dL Albumin (3.5-5.2) g/dL Globulin (1.3-4.6) g/dL Procalcitonin (0-0.5) ng/mL Urine Color Yellow (Yellow) Urine Appearance Hazy A (CLEAR) Urine pH 8 H (5-7) Ur Specific [place] 1.010 (1.005-1.030) Urine Protein Trace (Negative) Urine Glucose (UA) Norm (Normal) Urine Ketones 1+ H (Negative) Urine Blood 3+ H (Negative) Urine Nitrate Negative (Negative) Urine Bilirubin Neg (Negative) Prot Sulfosalicylic Acd Positive (Negative) Urine Urobilinogen 4 H (Negative) mg/dL Ur Leukocyte Esterase Negative (Negative) Urine RBC >100 H (0-2) /hpf Urine WBC 0-4 H (0-5) /hpf Ur Squamous Epith Cells Rare (0-5) /hpf Amorphous Sediment Not Reportable Urine Bacteria Trace (NONE) /hpf COVID Results: SARS-CoV-2 Antigen (Rapid) Positive (Negative) H 12/05/19 14:06 12/05/19 Discharge Plan Discharge Patient Disposition: Transfer to ED Prescriptions: No Action furosemide 80 mg tablet 80 mg PO DIRECTED RF: 0 potassium chloride 20 mEq/15 mL liquid See Rx Instructions .ROUTE .COMPLEX RF: 0 aspirin [Adult Low Dose Aspirin] 81 mg tablet,delayed release (DR/EC) 81 mg PO DAILY RF: 0 multivitamin Tablet 1 tab PO DAILY RF: 0 docusate sodium 100 mg capsule 100 mg PO BID PRN (Reason: Constipation) RF: 0 trazodone 100 mg tablet 100 mg PO BEDTIME PRN (Reason: Sleep) RF: 0 lisinopril 5 mg Tablet 5 mg PO DAILY Qty: 30 RF: 0 simethicone 80 mg Tablet,Chewable 80 mg PO QID PRN (Reason: Flatulence) Qty: 10 RF: 0 Pradaxa 150 mg Capsule 150 mg PO BID Qty: 60 RF: 0 acetaminophen [Tylenol] 325 mg Tablet 325 - 650 mg PO PRN PRN (Reason: Pain) RF: 0 simvastatin 40 mg Tablet 20 mg PO BEDTIME RF: 0 tamsulosin [Flomax] 0.4 mg Capsule 0.8 mg PO DAILY RF: 0 finasteride [Proscar] 5 mg Tablet 5 mg PO BEDTIME RF: 0 glipizide 5 mg Tablet 5 mg PO BID RF: 0 Prilosec 10 mg Susp,Delayed Release For Recon 40 mg PO BEDTIME RF: 0 hydroxyzine HCl 10 mg tablet 10 mg PO Q6H PRN (Reason: UNKNOWN) RF: 0 Myrbetriq 25 mg tablet extended release 24 hr 25 mg PO DAILY RF: 0 Aleve 220 mg tablet 220 mg PO PRN PRN (Reason: Pain) RF: 0 gabapentin 600 mg Tablet 1,200 mg PO BEDTIME RF: 0 ropinirole 0.25 mg Tablet 0.25 mg PO BID RF: 0 albuterol sulfate 90 mcg/actuation Hfa Aerosol Inhaler 2 puff INHALATION Q6H PRN (Reason: Shortness Of Breath) RF: 0 Advair Diskus 250-50 mcg/dose Blister With Device 1 puff inhalation BID.RESPIRATORY Qty: 60 RF: 0 Vitamin C 500 mg Tablet 500 mg PO DAILY Qty: 30 RF: 0 zinc gluconate 50 mg Tablet 50 mg PO DAILY Qty: 30 RF: 0 prednisone 10 mg tablet See Rx Instructions .ROUTE .COMPLEX 12 Days Qty: 30 RF: 0 metoprolol tartrate 25 mg Tablet 25 mg PO BID Qty: 60 RF: 0 Referrals: Mei Flores FNP [Primary Care Provider] - Discharge Date/Time: 12/15/19 19:14 Coding Level of Care Code ED Technical Document Writer for g Fwd Exam Comprehensive
[2019-12-15 08:32] LABS: Basophils % 0.1 %; Eosinophils % 0.3 %; Hematocrit 35.8 % (42.0-52.0); Hemoglobin 13.4 g/dL (11.7-16.6); Lymphocytes # 0.5 10^3/uL (0.8-4.8); Lymphocytes % 3.4 %; Mean Corpuscular HGB Conc 37.4 g/dL (30.0-36.0); Mean Corpuscular Hemoglobin 35.8 pg (28.0-34.0); Mean Corpuscular Volume 95.7 fL (80-94); Mean Platelet Volume 10.1 fL (7.4-10.4); Monocytes # 0.7 10^3/uL (0.2-0.9); Monocytes % 4.6 %; Neutrophils # 13.95 10^3/uL (1.8-7.7); Neutrophils % 89.9 %; Nucleated Red Blood Cells % 0 %; Platelet Count 215 10^3/cmm (130-400); Red Blood Count 3.74 10^6/uL (4.1-5.3); Red Cell Distribution Width 13.1 % (12.1-15.1); White Blood Count 15.5 10^3/uL (4.0-10.0)
[2019-12-15 08:46] LABS: INR 1.27 (0.8-1.2)
[2019-12-15 08:47] LABS: Fibrinogen 695 mg/dL (174-498); Partial Thromboplastin Time 46.9 SECONDS (23.9-36.7)
[2019-12-15 08:49] LABS: ABG PCO2 35.6 mmHg (35-45); ABG PH Result 7.51 (7.35-7.45); Arterial Blood Gas Hematocrit 39.8 % (42-52); Base Excess ABG 5.2 mmol/L (-2.0-2.0); Blood Gas Operator Identificat AMH; Blood Gas Sample Site Brachial, left; Blood Gas Sample Type Arterial; HCO3 ABG 28.3 mmol/L (22-26); Oxygen Device NRB
[2019-12-15 08:50] LABS: D Dimer 0.72 ug/mIFEU (0-0.59)
[2019-12-15 08:53] LABS: Lactic Sepsis W/Reflex 1.8 mmol/L (0.5-2.2)
[2019-12-15 08:59] LABS: Procalcitonin 0.43 ng/mL (0-0.5)
[2019-12-15 09:11] LABS: Alanine Aminotransferase 10 U/L (0-41); Albumin Level 3.5 g/dL (3.5-5.2); Alkaline Phosphatase 78 IU/L (40-130); Anion Gap 17.3 (5-19); Aspartate Amino Transferase 15 U/L (0-40); Blood Urea Nitrogen 25 mg/dL (8-23); C Reactive Protein 223.6 mg/L (0.0-4.9); Calcium 8.4 mg/dL (8.5-10.5); Carbon Dioxide 26 mmol/L (22-29); Chloride 92 mmol/L (98-107); Creatine Phosphokinase 38 U/L (39-308); Ferritin 522 ng/mL (30-400); Globulin 2.8 g/dL (1.3-4.6); Glucose 130 mg/dL (65-115); Magnesium 1.8 mg/dL (1.7-2.3); Osmolality Calculated 278 mOsm/kg (285-295); Potassium 4.3 mmol/L (3.5-5.1); Sodium 131 mmol/L (136-145); Total Bilirubin 1.1 mg/dL (0.15-1.2); Total Protein 6.3 g/dL (6.6-8.7)
[2019-12-15 09:13] LABS: Lactate Dehydrogenase 296 U/L (135-225)
[2019-12-15 09:24] LABS: Add Urine Microscopic? YES; Bilirubin Urine Neg (Negative); Blood Urine 3+ (Negative); Glucose Urine UA Norm (Normal); Ketones Urine 1+ (Negative); Leukocyte Esterase Urine Negative (Negative); Nitrate Urine Negative (Negative); Protein Urine Trace (Negative); Sulfosalicylic Acid Urine Positive (Negative); Urine Appearance Hazy (CLEAR); Urine Color Yellow (Yellow); Urobilinogen Urine 4 mg/dL (Negative); pH Urine 8 (5-7)
[2019-12-15 09:25] LABS: RBC Urine >100 /hpf (0-2)
[2019-12-15 09:26] LABS: Add Urine Culture? Yes; Bacteria Urine TRACE /hpf; Squamous Epithelial Cell Urine RARE /hpf (0-5); WBC Urine 0-4 /hpf (0-5)
--- NOTE | 2019-12-15 10:13 | ECG_ITS ---
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 Measurements Intervals [place] Rate: 122 P: MD: -1 QRS: 223 QRSD: 153 T: 22 QT: 337 QTc: 482 Interpretive Statements ATRIAL FIBRILLATION WITH RAPID VENTRICULAR RESPONSE INDETERMINATE AXIS RIGHT BUNDLE BRANCH BLOCK [120+ ms QRS DURATION, UPRIGHT V1, 40+ ms S IN I/aVL/V4/V5/V6] Compared to ECG 12/05/2019 18:02:40 Ventricular premature complex(es) no longer present Aberrant conduction of supraventricular beat(s) no longer present Electronically Signed On 12-15-2019 21:38:37 CDT by Haley Hinojosa M.D. [id number]
[2019-12-15] MEDS: dexamethasone 4 mg/mL INJ 6 MG IVP (10:19)
[2019-12-15 18:00] VITALS: BP 138/80; PULSE 81; RESP 14; TEMP 36.4; O2SAT 94
[2019-12-15 19:13] VITALS: BP 147/73; PULSE 80; RESP 20; O2SAT 97
== END 2019-12-15 19:14 ==
PROVIDERS: Emergency Provider Family Medicine; PCP Nurse Practitioner
DX: U07.1 COVID-19 (principal); Z79.82 Long term (current) use of aspirin; Z79.84 Long term (current) use of oral hypoglycemic drugs; I48.91 Unspecified atrial fibrillation; I50.9 Heart failure, unspecified; Z86.73 Personal history of transient ischemic attack (TIA), and cerebral infarction without residual deficits; E11.9 Type 2 diabetes mellitus without complications
CPT/HCPCS: 12345; 36600; 71045; 80053; 81001; 82550; 82728; 82803; 83605; 83615; 83735; 84145; 85025; 85378; 85384; 85610; 85730; 86140; 87040; 87086; 93005; 96365; 96375; 99283; 99285; J0131; J1100